=== PATIENT | male | born 1970 | race Caucasian/White ===

== ENCOUNTER 2017-05-01 06:51 | Inpatient (IN) | payer OTHER ==
[2017-05-01 07:30] LABS: URINE APPEARANCE CLEAR; URINE BILIRUBIN NEGATIVE (NEGATIVE); URINE BLOOD NEGATIVE (NEGATIVE); URINE COLOR YELLOW; URINE GLUCOSE (UA) NEGATIVE (NEGATIVE); URINE KETONE NEGATIVE (NEGATIVE); URINE LEUK ESTERASE NEGATIVE (NEGATIVE); URINE NITRITE NEGATIVE (NEGATIVE); URINE PROTEIN NEGATIVE (NEGATIVE); URINE UROBILINOGEN NEGATIVE mg/dL (0.2-1.0)
[2017-05-01 07:52] LABS: ALBUMIN 3.7 g/dl (3.4-5.0); ALK PHOS 64 U/L (45-117); ANION GAP 5 (8-16); BILIRUBIN,TOTAL 0.3 mg/dL (0.2-1.0); BLOOD UREA NITROGEN 15 mg/dL (7-18); CALCIUM 8.9 mg/dL (8.5-10.1); CHLORIDE 101 mmol/L (98-107); CO2 32 mmol/L (21-32); CREATININE 0.9 mg/dL (0.7-1.3); GLUCOSE,RANDOM 83 mg/dL (74-106); POTASSIUM 4.5 mmol/L (3.5-5.1); SGOT/AST 24 U/L (15-37); SGPT/ALT 30 U/L (12-78); SODIUM 138 mmol/L (136-145); TOT PROT 7.4 g/dl (6.4-8.2)
[2017-05-01 08:49] LABS: INR 0.97 (0.82-1.09)
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
[2017-05-01 08:59] VITALS: BMI 24.3
--- NOTE | 2017-05-01 10:47 | EKG ---
Test Reason : Blood Pressure : / mmHG Vent. Rate : 069 BPM Atrial Rate : 069 BPM P-R Int : 144 ms QRS Dur : 088 ms QT Int : 392 ms P-R-T Axes : 060 021 022 degrees QTc Int : 420 ms NORMAL SINUS RHYTHM MODERATE VOLTAGE CRITERIA FOR LVH, MAY BE NORMAL VARIANT EARLY REPOLARIZATION BORDERLINE ECG NO PREVIOUS ECGS AVAILABLE Confirmed by GOLDEI ROBERTS, JUAN ([id number]) on 05/01/2017 10:46:36 AM Referred By: IRASEMA TAY Confirmed By:JUAN AMEZCUA MD
[2017-05-01] MEDS ORDERED: MIDAZOLAM HCL 2 MG/2 ML SINGLE DOSE VIAL ONE (11:24)
[2017-05-01] MEDS ORDERED: HEPARIN NA (PORCINE) 5,000 UNITS/ML 1ML VIAL ONE (11:58)
[2017-05-01] MEDS ORDERED: ceFAZolin SODIUM 1 GM VIAL IVPB ONE (12:29)
[2017-05-01] MEDS ORDERED: VANCOMYCIN 1,000 MG VIAL (RESTRICTED TO ID ONLY) IVPB ONE (12:45)
[2017-05-01] MEDS ORDERED: THROMBIN (BOVINE) 5,000 UNIT VIAL TP ONE ×2 (12:57→16:47)
[2017-05-01] MEDS ORDERED: PROPOFOL 20 ML ONE ×9 (13:19→14:07)
[2017-05-01] MEDS ORDERED: DEXAMETHASONE SOD PHOSPHATE 4 MG/1 ML VIAL ONE ×2 (13:28)
[2017-05-01] MEDS ORDERED: fentaNYL CITRATE 250 MCG/5 ML VIAL ONE ×2 (13:50→15:21)
[2017-05-01] MEDS ORDERED: METOPROLOL TARTRATE 5 MG/5 ML VIAL ONE (16:33)
[2017-05-01] MEDS ORDERED: hydrALAZINE HCL 20 MG/ML VIAL ONE (16:45)
[2017-05-01] MEDS ORDERED: SODIUM CHLORIDE 0.9% P/F 10 ML VIAL IJ ONE (16:54)
[2017-05-01] MEDS ORDERED: ceFAZolin SODIUM 1 GM VIAL ONE (16:54)
[2017-05-01] MEDS ORDERED: TRANEXAMIC ACID 1000 MG/10 ML VIAL ONE (17:06)
[2017-05-01] MEDS ORDERED: PROMETHAZINE HCL 25 MG/1 ML VIAL IVPB PRN (17:32)
[2017-05-01] MEDS ORDERED: ONDANSETRON 4 MG/2 ML VIAL IVPUSH PRN ×2 (17:32→17:42)
[2017-05-01] MEDS ORDERED: DEXAMETHASONE SOD PHOSPHATE 4 MG/1 ML VIAL IVPUSH PRN (17:32)
[2017-05-01] MEDS ORDERED: HYDROmorphone HCL CARPU-JECT 2 MG/1 ML DISP.SYRIN ONE ×3 (17:33→18:58)
[2017-05-01] MEDS: HYDROmorphone HCL CARPU-JECT 2 MG/1 ML DISP.SYRIN IVPUSH PRN ×7 (17:33→19:09)
--- NOTE | 2017-05-01 17:36 | OP ---
Operative Note - Note: Operative Date: 05/01/17 Pre-Operative Diagnosis: Cervical spinal stenosis C5/6, C6/7 Operation: C5/6, C6/7 ACDF. C4 & C7 partial corpectomies Findings: C5/6 durotomy s/p DuraSeal glue application Post-Operative Diagnosis: Same as Pre-op Surgeon: Vijay Crisostomo Mold Yard Supervisor: Vitaly Crisostomo Anesthesiologist/TRADE SHOW MANAGER: Candido Chaudhry Anesthesia: General Specimens Removed: C5/6, C6/7 disc Estimated Blood Loss (mls): 100 Drains & Tubes with Location: 1 x deep 10F LILIAN Fluid Volume Replaced (mls): 2,000 Operative Report Dictated: Yes
--- NOTE | 2017-05-01 17:41 | PN ---
Progress Note (short form) - Note Progress Note: 46M s/p C5/6, C6/7 ACDF, C4 & C7 partial corpectomies POD #0. Intra-op dural tear C5/6 sealed w/DuraSeal glue -Admit to ICU post-op for strict airway monitoring. -Admit to medicine hospitalist service. -HOB elevated to 60 degrees minimum. -Pain control. -Mechanical DVT PPx. only (SCD's, CARMITA's); No chemical DVT PPx. -Incentive spirometry/aggressive pulmonary toilet. -PT/OT/Rehab, OOB. -WBAT B/L UE & LE. -Monitor drain output. -d/c lewis catheter in AM 05/02/2017. -Clear liquid diet; advance as tolerated. -Will follow.
[2017-05-01] MEDS ORDERED: diazePAM CARPU-JECT 10 MG/2 ML DISP.SYRIN IVPUSH PRN (17:42)
[2017-05-01] MEDS ORDERED: LACTATED RINGERS SOLUTION 1,000 ML IV SCH ×2 (17:45)
[2017-05-01] MEDS ORDERED: HYDROmorphone *PCA* 10MG/50ML DISP.SYRIN PCA SCH (17:45)
[2017-05-01] MEDS ORDERED: LORazepam 2 MG/ML SDV VIAL IVPUSH ONE (19:20)
[2017-05-01] MEDS ORDERED: CHLORHEXIDINE GLUCONATE 4% CLEANSER FOR DECOLONIZATION TP SCH (22:00)
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
[2017-05-01] MEDS: KETOROLAC TROMETHAMINE 30 MG/1 ML VIAL IVPUSH PRN (22:05)
[2017-05-01] MEDS: MUPIROCIN 2% TOPICAL OINTMENT FOR DECOLONIZATION NS SCH (22:09)
[2017-05-01] MEDS ORDERED: HYDROmorphone HCL CARPU-JECT 2 MG/1 ML DISP.SYRIN IVPUSH ONE (23:03)
[2017-05-01] MEDS ORDERED: LORazepam 2 MG/ML SDV VIAL IVPUSH PRN (23:03)
[2017-05-01] MEDS ORDERED: LORazepam 2 MG/ML SDV VIAL ONE (23:05)
[2017-05-02] MEDS: ACETAMINOPHEN 1000 MG/100 ML VIAL (NON FORMULARY) IVPB SCH ×3 (02:38→10:23)
--- NOTE | 2017-05-02 05:56 | PN ---
Physical Exam: SUBJECTIVE: Patient seen and examined at bedside. complain of shooting pain in his left arm associated with numbness, weakness. also reprots nubness in his left leg. the pain is 10/10 per patient . asking for more pain medicine. denies any fever, chills, N/V/D/C. OBJECTIVE: Vital Signs Period Temp Pulse Resp BP Sys/Kumari Pulse Ox Last 24 Hr 97.8 F-100.4 F 67-111 11-20 117-153/62-78 98-100 GENERAL: The patient is awake, alert, and fully oriented, in no acute distress. HEAD: Normal with no signs of trauma. EYES: sclera anicteric, conjunctiva clear. ENT: moist mucous membranes. NECK: supple. anterior surgical site is clean and covered with gauze. LUNGS: Breath sounds equal, clear to auscultation bilaterally, no wheezes, no crackles, no accessory muscle use. HEART: Regular rate and rhythm, S1, S2 without murmur, rub or gallop. ABDOMEN: Soft, nontender, nondistended, normoactive bowel sounds, no guarding, no rebound, EXTREMITIES: 2+ pulses, warm, well-perfused, no edema. left arm 4/5 strength, right arm 5/5 , NEUROLOGICAL: Cranial nerves II through XII grossly intact. Normal speech, gait not observed. PSYCH: Normal mood, normal affect. SKIN: Warm, dry, no rashes or lesions noted Drains: serosanguinous fluid Laboratory Results - last 24 hr 05/01/17 05/01/17 05/01/17 07:15 07:15 07:15 PT with INR 11.00 INR 0.97 Sodium 138 Potassium 4.5 Chloride 101 Carbon Dioxide 32 Anion Gap 5 L BUN 15 Creatinine 0.9 Creat Clearance w eGFR > 60 Random Glucose 83 Calcium 8.9 Total Bilirubin 0.3 AST 24 ALT 30 Alkaline Phosphatase 64 Total Protein 7.4 Albumin 3.7 Urine Color Urine Appearance Urine pH Ur Specific [place] Urine Protein Urine Glucose (UA) Urine Ketones Urine Blood Urine Nitrite Urine Bilirubin Urine Urobilinogen Ur Leukocyte Esterase Blood Type O POSITIVE Antibody Screen Negative 05/01/17 05/01/17 07:15 09:10 PT with INR INR Sodium Potassium Chloride Carbon Dioxide Anion Gap BUN Creatinine Creat Clearance w eGFR Random Glucose Calcium Total Bilirubin AST ALT Alkaline Phosphatase Total Protein Albumin Urine Color Yellow Urine Appearance Clear Urine pH 5.0 Ur Specific [place] 1.024 Urine Protein Negative Urine Glucose (UA) Negative Urine Ketones Negative Urine Blood Negative Urine Nitrite Negative Urine Bilirubin Negative Urine Urobilinogen Negative Ur Leukocyte Esterase Negative Blood Type O POSITIVE Antibody Screen Active Medications Generic Name Dose Route Start Last Admin Trade Name Freq PRN Reason Stop Dose Admin Acetaminophen 1,000 mg 05/01/17 17:45 05/02/17 02:38 Ofirmev Injection - IVPB 05/02/17 09:46 1,000 mg Q8H [facility] Administration Chlorhexidine Gluconate 1 applic 05/01/17 22:00 05/01/17 22:09 Hibiclens For Decolonization - TP 1 applic HS [facility] Administration Dexamethasone Sodium Phosphate 4 mg 05/01/17 17:32 Decadron Injection - IVPUSH ONCE PRN NAUSEA AND/OR VOMITING Diphenhydramine HCl 12.5 mg 05/01/17 17:32 Benadryl Injection - IVPUSH ONCE PRN FOR ITCHING Hydromorphone HCl 0 mg 05/01/17 17:45 05/01/17 18:15 Dilaudid Child Support Specialist - DIRECTOR LONG TERM CARE 05/08/17 17:33 10 mg DIRECTOR LONG TERM CARE [facility] Administration Protocol Lactated Ringer's 1,000 mls @ 125 mls/hr 05/01/17 17:45 05/01/17 22:07 Lactated Ringers Solution IV 125 mls/hr ASDIR [facility] Administration Ketorolac Tromethamine 15 mg 05/01/17 17:42 05/01/17 22:05 Toradol Injection - IVPUSH 05/06/17 17:41 15 mg Q6H PRN Administration PAIN LEVEL 6-10 Lorazepam 2 mg 05/01/17 23:03 Ativan Injection - IVPUSH 05/02/17 23:02 TID PRN ANXIETY Mupirocin 1 applic 05/01/17 22:00 05/01/17 22:09 Bactroban Ointment (For Decolonization) - NS 05/06/17 21:59 1 applic BID [facility] Administration Ondansetron HCl 4 mg 05/01/17 17:32 Zofran Injection IVPUSH Q4H PRN NAUSEA AND/OR VOMITING CBC, BMP 05/02/17 05:05 05/02/17 05:05 ASSESSMENT/PLAN: 46 y/o M w/PMH of pre-diabetes presents to same day surgery/ambulatory services for C5-C6-C7 anterior cervical discectomy w/Dr. Crisostomo today. Admitted to ICU s/ p surgery for monitoring. -B/L UE paresthesias secondary to cervical herniations -post op day 1 , C5-C7 anterior discectomy fusion -Neuro checks s/p surgery --pain management: DC Dilaudid DIRECTOR LONG TERM CARE protocol,continue , Ketorlac 15 mg IVpish Q6hr, -antiemetics zofran 4 mg IVpush Q4hr -monitor drain output -venodynes -diet as tolerated -incentive spirometry - neuro checks - can monitor on floor if ok with surgery -Lorazepam 1 mg TID per ICU team - CBC, CMP , PTT, MG , P in AM -DVT ppx -SCDs both legs s/p surgery -FEN -RL @ 125 cc/hr -Monitor electrolytes -fluids while npo, advance diet as tolerated. -Dispo: -Admit to ICU s/p surgery. Visit type - Emergency Visit Emergency Visit: No - New Patient This patient is new to me today: Yes Date on this admission: 05/03/17 - Critical Care Critical Care patient: Yes Total Critical Care Time (in minutes): 35 Critical Care Statement: The care of this patient involved high complexity decision making to prevent further life threatening deterioration of the patient 's condition and/or to evaluate & treat vital organ system(s) failure or risk of failure.
[2017-05-02 06:43] LABS: BASO % 0.1 % (0-2.0); HEMATOCRIT 38.6 % (35.4-49); LYMPH % 9.4 % (8-40); MCH 28.8 pg (25.7-33.7); MCHC 33.7 g/dl (32.0-35.9); MEAN CELL VOLUME 85.5 fl (80-96); MEAN PLT VOLUME 8.9 fl (7.5-11.1); MONO % 5.5 % (3.8-10.2); PLATELET COUNT 268 K/MM3 (134-434); RBC 4.51 M/mm3 (4.00-5.60); RDW 13.6 % (11.9-15.9); WHITE BLOOD COUNT 11.5 K/mm3 (4.0-10.0)
[2017-05-02] MEDS ORDERED: HYDROmorphone *PCA* 10MG/50ML DISP.SYRIN PCA ONE (07:03)
[2017-05-02 07:05] LABS: CHLORIDE 101 mmol/L (98-107); POTASSIUM 4.4 mmol/L (3.5-5.1); SODIUM 138 mmol/L (136-145)
[2017-05-02 07:12] LABS: ALBUMIN 3.4 g/dl (3.4-5.0); ALK PHOS 60 U/L (45-117); ANION GAP 8 (8-16); BILIRUBIN,TOTAL 0.7 mg/dL (0.2-1.0); BLOOD UREA NITROGEN 13 mg/dL (7-18); CALCIUM 8.9 mg/dL (8.5-10.1); CO2 29 mmol/L (21-32); CREATININE 0.8 mg/dL (0.7-1.3); GLUCOSE,RANDOM 111 mg/dL (74-106); SGOT/AST 36 U/L (15-37); SGPT/ALT 33 U/L (12-78)
--- NOTE | 2017-05-02 07:50 | OP ---
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 OPERATION PERFORMED: 1. Anterior cervical diskectomy and fusion C5-C6. 2. Anterior cervical diskectomy and fusion C6-C7. 3. Both levels with cages. 4. Anterior arthrodesis and anterior plating, C5 to C7. ANESTHESIA: General. ANTIBIOTICS GIVEN: Kefzol 2 g, vancomycin 1 g, Decadron 10 mg given preoperatively. BLOOD LOSS: Approximately 50 mL. OPERATION IN DETAIL: The patient was correctly identified, brought to the operating room, placed supine on the operating room table, transverse bolster behind the scapula. The neck was extended. The skin was cleansed with Betadine scrub solution, wiped with alcohol, and DuraPrep was applied. Time-out was called. Imaging was available for intraoperative evaluation. An oblique incision was made over the cricothyroid interval. The dissection was taken through the platysma. The platysma was transected. The plane of the viscera and vessels was identified with digital palpation lateral to the strap muscles. No complications in getting the instrumentation into the neck region. The longus coli was lifted off the bed of C5, C6, and C7, that is laterally. The teeth retractors were placed in the actual muscle belly. The 18-gauge bent needle tip was placed in the C5-C6 disk, which was verified by lateral fluoroscopic x-ray that the correct position was being utilized. Once excellent exposure was achieved, the 2 bulging disks were readily noted. These were large osteophyte disk complexes. The unipolar Bovie was used to release the actual annulus off the bone bed. With a curette, all the disk material was scooped out of each level. Using a Midas Misha 40-mm rough quintin bur, the bone was appropriately trimmed, thus creating a partial corpectomy as well in order to achieve this rectangular position to create a complete decompression at C6-C7 as well as at C5-C6. The posterior longitudinal ligament was taken out completely. The dura was exposed completely. At C5-C6 an unusual anatomical variant was noted. The nerve root was convoluted, the dural was infolded, and appeared similar to PLL scar. Upon attempted elevation of this flap, an incidental durotomy occurred with CSF leakage. DuraSeal fibrin glue was placed onto this area to ensure that there was complete sealant. The cage at C5-C6 measured 10-mm PEEK cage. This was filled with Osteofil. The C6- C7 disk was an 8-mm PEEK cage. A size 32-mm Simplicity plate was placed on the anterior aspect surface of the bone. Screws were placed into the C5, C6 and C7 vertebral bodies. Verification with lateral fluoroscopic x-rays showed excellent position of all screws. Plating was straight and uncomplicated. All cages were well seated. The wounds were thoroughly washed off. Hemostasis was achieved as best we could , but because of the oozy soft tissue bed, we elected to put in a LILIAN drain. The tissues were closed as follows: Platysma 2-0 Vicryl, subcutaneous 2-0 Vicryl, skin 3-0 Monocryl with Steri-Strips. Drainage as noted above. No complications. MD ERIC Garcia/[id number] MTDD
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
[2017-05-02 08:41] LABS: PHOSPHOROUS 3.7 mg/dL (2.5-4.9)
[2017-05-02] MEDS: MUPIROCIN 2% TOPICAL OINTMENT FOR DECOLONIZATION NS SCH (10:24)
[2017-05-02] MEDS ORDERED: PT OWN MED DRAWER 7, Y5N ONE (10:29)
[2017-05-02] MEDS: KETOROLAC TROMETHAMINE 30 MG/1 ML VIAL IVPUSH PRN (10:30)
--- NOTE | 2017-05-02 12:38 | PN ---
Teaching Attending Note Name of Resident: Pretty Guillen ATTENDING PHYSICIAN STATEMENT I saw and evaluated the patient. I reviewed the resident's note and discussed the case with the resident. I agree with the resident's findings and plan as documented. SUBJECTIVE: Pt seen and examined in the ICU. Still with significant pain. Reports weakness and numbness of bilateral arms and left leg. No fevers or chills. No chest pain or shortness of breath. OBJECTIVE: Last Vital Signs Temp Pulse Resp BP Pulse Ox 98.2 F 89 18 149/79 100 05/02/17 10:00 05/02/17 10:15 05/02/17 10:15 05/02/17 10:15 05/02/17 09:22 Intake & Output 04/29/17 04/30/17 05/01/17 05/02/17 23:59 23:59 23:59 23:59 Intake Total 2450 1816 Output Total 1300 550 Balance 1150 1266 Weight 77.111 kg Gen: NAD at rest Heart: RRR Lung: decreased breath sounds at the bases Abd: soft, nontender Ext: no edema Drains: serosanguinous fluid CBC, BMP 05/02/17 05:05 05/02/17 05:05 Active Medications Chlorhexidine Gluconate (Hibiclens For Decolonization -) 1 applic TP HS GA Last Admin: 05/01/17 22:09 Dose: 1 applic Dexamethasone Sodium Phosphate (Decadron Injection -) 4 mg IVPUSH ONCE PRN PRN Reason: NAUSEA AND/OR VOMITING Diphenhydramine HCl (Benadryl Injection -) 12.5 mg IVPUSH ONCE PRN PRN Reason: FOR ITCHING Hydromorphone HCl (Dilaudid Coffee Maker -) 0 mg MOLD CUTTING MACHINE OPERATOR MOLD CUTTING MACHINE OPERATOR GA PRN Reason: Protocol Stop: 05/08/17 17:33 Last Admin: 05/01/17 18:15 Dose: 10 mg Lactated Ringer's (Lactated Ringers Solution) 1,000 mls @ 125 mls/hr IV ASDIR GA Last Admin: 05/01/17 22:07 Dose: 125 mls/hr Ketorolac Tromethamine (Toradol Injection -) 15 mg IVPUSH Q6H PRN PRN Reason: PAIN LEVEL 6-10 Stop: 05/06/17 17:41 Last Admin: 01/18/18 10:30 Dose: 15 mg Lorazepam (Ativan Injection -) 2 mg IVPUSH TID PRN PRN Reason: ANXIETY Stop: 05/02/17 23:02 Last Admin: 05/02/17 07:17 Dose: 2 mg Mupirocin (Bactroban Ointment (For Decolonization) -) 1 applic NS BID GA Stop: 05/06/17 21:59 Last Admin: 05/02/17 10:24 Dose: 1 applic Ondansetron HCl (Zofran Injection) 4 mg IVPUSH Q4H PRN PRN Reason: NAUSEA AND/OR VOMITING ASSESSMENT AND PLAN: Cervical Stenosis C5-C7 s/p C5-C7 Anterior Cervical Discectomy/Fusion - pain control - incentive spirometry - neuro checks - PO as tolerated - monitor drain output - mechanical DVT prophylaxis - can monitor on floor if ok with surgery
[2017-05-02] MEDS ORDERED: DEXAMETHASONE SOD PHOSPHATE 10 MG/1 ML VIAL IVPUSH ONE (13:16)
[2017-05-02] MEDS ORDERED: oxyCODONE HCL 5 MG TABLET PO SCH ×3 (14:00→22:00)
--- NOTE | 2017-05-02 15:16 | PN ---
Teaching Attending Note Name of Resident: Balbir Chandler ATTENDING PHYSICIAN STATEMENT I saw and evaluated the patient. I reviewed the resident's note and discussed the case with the resident. I agree with the resident's findings and plan as documented. SUBJECTIVE: Still with significant pain. Reports weakness and numbness of bilateral arms and left leg. No fevers or chills. No chest pain or shortness of breath. OBJECTIVE: Vital Signs Temperature 98.2 F 05/02/17 10:00 Pulse Rate 83 05/02/17 12:00 Respiratory Rate 18 05/02/17 12:00 Blood Pressure 128/76 05/02/17 12:00 O2 Sat by Pulse Oximetry (%) 100 05/02/17 09:22 CBCD WBC 11.5 K/mm3 (4.0-10.0) H 05/02/17 05:05 RBC 4.51 M/mm3 (4.00-5.60) 05/02/17 05:05 Hgb 13.0 GM/dL (11.7-16.9) 05/02/17 05:05 Hct 38.6 % (35.4-49) 05/02/17 05:05 MCV 85.5 fl (80-96) 05/02/17 05:05 MCHC 33.7 g/dl (32.0-35.9) 05/02/17 05:05 RDW 13.6 % (11.9-15.9) 05/02/17 05:05 Plt Count 268 K/MM3 (134-434) 05/02/17 05:05 MPV 8.9 fl (7.5-11.1) 05/02/17 05:05 CMP Sodium 138 mmol/L (136-145) 05/02/17 05:05 Potassium 4.4 mmol/L (3.5-5.1) 05/02/17 05:05 Chloride 101 mmol/L (98-107) 05/02/17 05:05 Carbon Dioxide 29 mmol/L (21-32) 05/02/17 05:05 Anion Gap 8 (8-16) 05/02/17 05:05 BUN 13 mg/dL (7-18) 05/02/17 05:05 Creatinine 0.8 mg/dL (0.7-1.3) 05/02/17 05:05 Creat Clearance w eGFR > 60 (>60) 05/02/17 05:05 Random Glucose 111 mg/dL (74-106) H D 05/02/17 05:05 Calcium 8.9 mg/dL (8.5-10.1) 05/02/17 05:05 Total Bilirubin 0.7 mg/dL (0.2-1.0) D 05/02/17 05:05 AST 36 U/L (15-37) D 05/02/17 05:05 ALT 33 U/L (12-78) 05/02/17 05:05 Alkaline Phosphatase 60 U/L (45-117) 05/02/17 05:05 Total Protein 7.0 g/dl (6.4-8.2) 05/02/17 05:05 Albumin 3.4 g/dl (3.4-5.0) 05/02/17 05:05 Current Medications Generic Name Dose Route Start Last Admin Trade Name Freq PRN Reason Stop Dose Admin Chlorhexidine Gluconate 1 applic 05/01/17 22:00 05/01/17 22:09 Hibiclens For Decolonization - TP 1 applic HS GA Administration Diphenhydramine HCl 12.5 mg 05/01/17 17:32 Benadryl Injection - IVPUSH ONCE PRN FOR ITCHING Hydromorphone HCl 0 mg 05/01/17 17:45 05/01/17 18:15 Dilaudid Gas Golf Cart Repairer - PIPELINE SUPERINTENDENT DIVISION 05/08/17 17:33 10 mg PIPELINE SUPERINTENDENT DIVISION GA Administration Protocol Ketorolac Tromethamine 15 mg 05/01/17 17:42 05/02/17 10:30 Toradol Injection - IVPUSH 05/06/17 17:41 15 mg Q6H PRN Administration PAIN LEVEL 6-10 Lorazepam 2 mg 05/01/17 23:03 05/02/17 07:17 Ativan Injection - IVPUSH 05/02/17 23:02 2 mg TID PRN Administration ANXIETY Mupirocin 1 applic 05/01/17 22:00 05/02/17 10:24 Bactroban Ointment (For Decolonization) - NS 05/06/17 21:59 1 applic BID GA Administration Ondansetron HCl 4 mg 05/01/17 17:32 Zofran Injection IVPUSH Q4H PRN NAUSEA AND/OR VOMITING Oxycodone HCl 30 mg 01/18/18 14:00 05/02/17 13:29 Roxicodone - PO 30 mg TID [facility] Administration Home Medications Medication Instructions Recorded Oxycodone HCl 30 mg PO Q8H 05/01/17 PE: comfortable with no acute distress Chest: decreased BS BL since unable to take deep breaths due to cervical sx Neck: positive for drainage, serosanginous fluid abdomen: soft, NT Heart: S1S1 positive ASSESSMENT AND PLAN: #POD #1 C5-C7 Anterior Cervical Discectomy/Fusion, on PIPELINE SUPERINTENDENT DIVISION pump as per surgeon, further pain management. Incentive spirometry , neuro checks. Only mechanical DVT px for at least 72hrs. Further management per surgery . SCDs
[2017-05-02] MEDS ORDERED: NIFEdipine E.R. 30 MG TABLET (FP) PO ONE (15:17)
[2017-05-02] MEDS ORDERED: HYDROmorphone *PCA* 10MG/50ML DISP.SYRIN PCA SCH (15:20)
[2017-05-02] MEDS ORDERED: KETOROLAC TROMETHAMINE 30 MG/1 ML VIAL IVPUSH PRN ×2 (15:20→19:36)
[2017-05-02] MEDS ORDERED: LORazepam 2 MG/ML SDV VIAL IVPUSH PRN ×2 (15:20→16:05)
[2017-05-02] MEDS ORDERED: ONDANSETRON 4 MG/2 ML VIAL IVPUSH PRN ×2 (15:20→19:36)
[2017-05-02] MEDS ORDERED: oxyCODONE HCL 5 MG TABLET PO PRN (15:58)
--- NOTE | 2017-05-02 16:14 | PN ---
Progress Note (short form) - Note Progress Note: Anesthesia post op, RETAIL CENTER RECEPTIONIST follow up. POD#1. S/P anterior cervical fusion, under GA. On RETAIL CENTER RECEPTIONIST. Pat seen and examined. VSS. C/O Tingling and pain in hands as preop. Started on Po analgetics. D/C RETAIL CENTER RECEPTIONIST.
[2017-05-02] MEDS: oxyCODONE HCL 5 MG TABLET PO SCH (21:55)
[2017-05-02] MEDS ORDERED: MUPIROCIN 2% TOPICAL OINTMENT FOR DECOLONIZATION NS SCH (22:00)
[2017-05-02] MEDS ORDERED: CHLORHEXIDINE GLUCONATE 4% CLEANSER FOR DECOLONIZATION TP SCH (22:00)
--- NOTE | 2017-05-03 04:44 | PN ---
Physical Exam: SUBJECTIVE: Patient seen and examined at bedside. still have numbness on left arm and left leg. complain of sever frontal headache over night 10/10, improved with pain killer. OBJECTIVE: Vital Signs Period Temp Pulse Resp BP Sys/Kumari Pulse Ox Last 24 Hr 97.8 F-99.2 F 63-100 11-20 114-149/54-79 100-100 GENERAL: The patient is awake, alert, and fully oriented, in no acute distress. HEAD: Normal with no signs of trauma. EYES: sclera anicteric, conjunctiva clear. ENT: moist mucous membranes. NECK: supple. anterior surgical site is clean and covered with gauze. LUNGS: Breath sounds equal, clear to auscultation bilaterally, no wheezes, no crackles, no accessory muscle use. HEART: Regular rate and rhythm, S1, S2 without murmur, rub or gallop. ABDOMEN: Soft, nontender, nondistended, normoactive bowel sounds, no guarding, no rebound, EXTREMITIES: 2+ pulses, warm, well-perfused, no edema. left arm 4/5 strength, right arm 5/5 , NEUROLOGICAL: Cranial nerves II through XII grossly intact. Normal speech, gait not observed. PSYCH: Normal mood, normal affect. SKIN: Warm, dry, no rashes or lesions noted Drains: serosanguinous fluid Laboratory Results - last 24 hr 05/02/17 05/02/17 05/02/17 05:05 05:05 05:05 WBC 11.5 H RBC 4.51 Hgb 13.0 Hct 38.6 MCV 85.5 MCH 28.8 MCHC 33.7 RDW 13.6 Plt Count 268 MPV 8.9 Neutrophils % 85.0 H Lymphocytes % 9.4 Monocytes % 5.5 Eosinophils % 0.0 Basophils % 0.1 Sodium 138 Potassium 4.4 Chloride 101 Carbon Dioxide 29 Anion Gap 8 BUN 13 Creatinine 0.8 Creat Clearance w eGFR > 60 Random Glucose 111 H D Calcium 8.9 Phosphorus 3.7 Cancelled Magnesium 2.0 Cancelled Total Bilirubin 0.7 D AST 36 D ALT 33 Alkaline Phosphatase 60 Total Protein 7.0 Albumin 3.4 Active Medications Generic Name Dose Route Start Last Admin Trade Name Freq PRN Reason Stop Dose Admin Ketorolac Tromethamine 15 mg 05/02/17 19:36 Toradol Injection - IVPUSH 05/06/17 17:41 Q6H PRN PAIN LEVEL 6-10 Lorazepam 1 mg 05/02/17 16:05 Ativan Injection - IVPUSH Q8H PRN ANXIETY Ondansetron HCl 4 mg 05/02/17 19:36 Zofran Injection IVPUSH Q4H PRN NAUSEA AND/OR VOMITING Oxycodone HCl 30 mg 05/02/17 22:00 05/02/17 21:55 Roxicodone - PO 30 mg TID GA Administration CBC, BMP 05/03/17 07:20 05/03/17 07:20 ASSESSMENT/PLAN: 46 y/o M w/PMH of pre-diabetes presents to same day surgery/ambulatory services for C5-C6-C7 anterior cervical discectomy w/Dr. Crisostomo today. Admitted to ICU s/ p surgery for monitoring. -B/L UE paresthesias secondary to cervical herniations -post op day 1 , C5-C7 anterior discectomy fusion -Neuro checks s/p surgery --pain management: DC Dilaudid GRINDER SET UP OPERATOR CENTERLESS protocol,continue , Ketorlac 15 mg IVpish Q6hr,Oxycodone 30 mg TID. -antiemetics zofran 4 mg IVpush Q4hr -monitor drain output -venodynes -diet as tolerated -incentive spirometry - neuro checks - can monitor on floor if ok with surgery -Lorazepam 1 mg TID per ICU team - CBC, CMP , PTT, MG , P in AM -DVT ppx -SCDs both legs s/p surgery -FEN -on no fluids, encourage oral intake as tolerated -Monitor electrolytes - advance diet as tolerated. -Dispo: -Admit to ICU s/p surgery.transferred to med-surg. Visit type - Emergency Visit Emergency Visit: No - New Patient This patient is new to me today: No - Critical Care Critical Care patient: No
[2017-05-03] MEDS: oxyCODONE HCL 5 MG TABLET PO SCH ×3 (06:27→22:06)
[2017-05-03 08:18] LABS: BASO % 0.1 % (0-2.0); HEMATOCRIT 39.6 % (35.4-49); LYMPH % 16.8 % (8-40); MCH 27.9 pg (25.7-33.7); MCHC 32.8 g/dl (32.0-35.9); MEAN PLT VOLUME 9.1 fl (7.5-11.1); MONO % 6.5 % (3.8-10.2); NEUT % 76.6 % (42.8-82.8); PLATELET COUNT 270 K/MM3 (134-434); RBC 4.66 M/mm3 (4.00-5.60); RDW 14.1 % (11.9-15.9); WHITE BLOOD COUNT 12.6 K/mm3 (4.0-10.0)
[2017-05-03 08:37] LABS: ALBUMIN 3.8 g/dl (3.4-5.0); ANION GAP 11 (8-16); BLOOD UREA NITROGEN 13 mg/dL (7-18); CALCIUM 8.7 mg/dL (8.5-10.1); CHLORIDE 102 mmol/L (98-107); CO2 25 mmol/L (21-32); GLUCOSE,RANDOM 105 mg/dL (74-106); MAGNESIUM 2.1 mg/dL (1.8-2.4); POTASSIUM 3.9 mmol/L (3.5-5.1); SODIUM 138 mmol/L (136-145)
[2017-05-03 08:42] LABS: ALK PHOS 58 U/L (45-117); BILIRUBIN,TOTAL 0.8 mg/dL (0.2-1.0); CREATININE 0.7 mg/dL (0.7-1.3); SGOT/AST 36 U/L (15-37); SGPT/ALT 35 U/L (12-78); TOT PROT 7.4 g/dl (6.4-8.2)
--- NOTE | 2017-05-03 10:35 | PN ---
Teaching Attending Note Name of Resident: Balbir Chandler ATTENDING PHYSICIAN STATEMENT I saw and evaluated the patient. I reviewed the resident's note and discussed the case with the resident. I agree with the resident's findings and plan as documented. SUBJECTIVE: Patient continues to be in pain. OBJECTIVE: Vital Signs Temperature 97.2 F L 05/03/17 06:25 Pulse Rate 83 05/03/17 06:25 Respiratory Rate 20 05/03/17 01:16 Blood Pressure 141/83 05/03/17 06:25 O2 Sat by Pulse Oximetry (%) 100 05/02/17 09:22 CBCD WBC 12.6 K/mm3 (4.0-10.0) H 05/03/17 07:20 RBC 4.66 M/mm3 (4.00-5.60) 05/03/17 07:20 Hgb 13.0 GM/dL (11.7-16.9) 05/03/17 07:20 Hct 39.6 % (35.4-49) 05/03/17 07:20 MCV 85.0 fl (80-96) 05/03/17 07:20 MCHC 32.8 g/dl (32.0-35.9) 05/03/17 07:20 RDW 14.1 % (11.9-15.9) 05/03/17 07:20 Plt Count 270 K/MM3 (134-434) 05/03/17 07:20 MPV 9.1 fl (7.5-11.1) 05/03/17 07:20 CMP Sodium 138 mmol/L (136-145) 05/03/17 07:20 Potassium 3.9 mmol/L (3.5-5.1) 05/03/17 07:20 Chloride 102 mmol/L (98-107) 05/03/17 07:20 Carbon Dioxide 25 mmol/L (21-32) 05/03/17 07:20 Anion Gap 11 (8-16) 05/03/17 07:20 BUN 13 mg/dL (7-18) 05/03/17 07:20 Creatinine 0.7 mg/dL (0.7-1.3) 05/03/17 07:20 Creat Clearance w eGFR > 60 (>60) 05/03/17 07:20 Random Glucose 105 mg/dL (74-106) 05/03/17 07:20 Calcium 8.7 mg/dL (8.5-10.1) 05/03/17 07:20 Total Bilirubin 0.8 mg/dL (0.2-1.0) 05/03/17 07:20 AST 36 U/L (15-37) 05/03/17 07:20 ALT 35 U/L (12-78) 05/03/17 07:20 Alkaline Phosphatase 58 U/L (45-117) 05/03/17 07:20 Total Protein 7.4 g/dl (6.4-8.2) 05/03/17 07:20 Albumin 3.8 g/dl (3.4-5.0) 05/03/17 07:20 Current Medications Generic Name Dose Route Start Last Admin Trade Name Freq PRN Reason Stop Dose Admin Ketorolac Tromethamine 15 mg 05/02/17 19:36 Toradol Injection - IVPUSH 05/06/17 17:41 Q6H PRN PAIN LEVEL 6-10 Lorazepam 1 mg 05/02/17 16:05 Ativan Injection - IVPUSH Q8H PRN ANXIETY Ondansetron HCl 4 mg 05/02/17 19:36 Zofran Injection IVPUSH Q4H PRN NAUSEA AND/OR VOMITING Oxycodone HCl 30 mg 05/02/17 22:00 05/03/17 06:27 Roxicodone - PO 30 mg TID GA Administration Home Medications Medication Instructions Recorded Oxycodone HCl 30 mg PO Q8H 05/01/17 PE: comfortable with no acute distress Chest: decreased BS BL since unable to take deep breaths due to cervical sx Neck: positive for drainage, serosanginous fluid abdomen: soft, NT Heart: S1S1 positive ASSESSMENT AND PLAN: #POD #2 C5-C7 Anterior Cervical Discectomy/Fusion, off CERTIFIED CYTOTECHNOLOGIST pump now, on PO pain meds and further pain management per Surgeon . Incentive spirometry continue neuro checks continue. mechanical DVT px Only for at least 72hrs. DVT Px: SCDs
--- NOTE | 2017-05-03 12:10 | PATH ---
Surgical Pathology Report Patient Name: HECTOR FRANZ Med. Rec. #: [id number] /Age/Gender: 1970 (Age: 46) / M Account: [id number] Location: [facility] MED/SURG Taken: 05/01/2017 Received: 05/02/2017 Reported: 05/03/2017 Physicians: Vitaly Crisostomo M.D. Specimen(s) Received A: DISC TISSUE OF C5 B: DISC TISSUE OF C6 Clinical History Cervical disc disorder Final Diagnosis A. C5-C6 DISC TISSUE, DISCECTOMY: BENIGN INTERVERTEBRAL DISC TISSUE. B. C6-C7 DISC TISSUE, DISCECTOMY: BENIGN INTERVERTEBRAL DISC TISSUE. Electronically Signed Rosario Calixto M.D. Gross Description A. Received in formalin labeled "C5-C6 disc tissue," is a 1.3 x 1.1 x 0.3 cm aggregate of morse fragments of fibrocartilaginous tissue. The specimen is entirely submitted in one cassette. B. Received in formalin labeled "C6-C7 disc tissue," is a 2.2 x 1.7 x 0.3 cm aggregate of morse fragments of fibrocartilaginous tissue. The specimen is entirely submitted in one cassette. DL/05/02/2017 saudi05/02/2017
--- NOTE | 2017-05-03 14:43 | PN ---
Progress Note (short form) - Note Progress Note: 46M s/p C5/6, C6/7 ACDF, C4 & C7 partial corpectomies POD #2. Intra-op dural tear C5/6 sealed w/DuraSeal glue Pain well controlled. (+) Severe migraine when lying flat earlier. Pt. reports B/L UE & LE radiculopathic pain & paresthesias markedly improved since surgery. Ambulating comfortably in hallway. All labs & vitals reviewed. PE: AAOx3, NAD. C-Spine: Dressing C/D/I. (+) Sutured in LILIAN drain intact & in place. (+) Serosanguinous drainage w/abundant CSF. B/L UE & LE Sensorimotor Exam: Improved from baseline. MRI C-spine: Left C5-C6 durotomy w/associated CSF leak and nerve root herniation. 46M s/p C5/6, C6/7 ACDF, C4 & C7 partial corpectomies POD #2. -NPO, IVF at midnight. -Plan to return to OR tomorrow morning (first case). -HOB elevated to 30 degrees. -Pain control. -Mechanical DVT PPx. only (SCD's, CARMITA's); No chemical DVT PPx. -PT/OT/Rehab, OOB. -WBAT B/L UE & LE. -Monitor drain output; MAINTAIN DRAIN OFF SUCTION. -Pt. seen & examined w/Salvatore Morin MD (Neurosurgery) who agrees with the above plan. -Care per primary medical team. -Will follow. Vitaly Crisostomo MD (Orthopaedic Surgery)
[2017-05-03] MEDS: SODIUM CHLORIDE 0.45% 1,000 ML IV SCH (19:25)
--- NOTE | 2017-05-03 22:48 | CONSULT ---
Consult - text type - Consultation Consultation Note: Neurosurgery consult Patient is a 46-year-old male who recently underwent two level cervical discectomy and fusion with postoperative course notable for hematoma which was evacuated and small durotomy with potentially irritated nerve root. Durotomy was at C56 level. MRI today suggests continued extravasation of CSF as does the clinical picture of low pressure headaches and CSF appearing drainage in drain. Case discussed with Dr. Vitaly Crisostomo and with patient. I agree with plans for revision with conversion to corpectomy and primary repair of durotomy with reconstruction and possible spinal drainage. Patient planned for surgery in the morning. Risks, benefits, and alternatives to the proposed surgery were discussed with the patient in detail. All questions were answered. Informed consent was obtained.
[2017-05-04] MEDS: SODIUM CHLORIDE 0.45% 1,000 ML IV SCH ×3 (00:02→17:10)
[2017-05-04] MEDS: oxyCODONE HCL 5 MG TABLET PO SCH ×2 (05:45→21:34)
[2017-05-04] MEDS ORDERED: PROMETHAZINE HCL 25 MG/1 ML VIAL IVPUSH PRN (08:42)
[2017-05-04] MEDS ORDERED: ONDANSETRON 4 MG/2 ML VIAL IVPUSH PRN ×4 (08:42→15:15)
[2017-05-04] MEDS ORDERED: DEXAMETHASONE SOD PHOSPHATE 4 MG/1 ML VIAL IVPUSH PRN (08:43)
[2017-05-04] MEDS ORDERED: PROMETHAZINE HCL 25 MG/1 ML VIAL IVPB PRN (08:43)
[2017-05-04] MEDS ORDERED: HYDROmorphone *PCA* 10MG/50ML DISP.SYRIN PCA SCH (08:45)
[2017-05-04] MEDS ORDERED: LACTATED RINGERS SOLUTION 1,000 ML IV SCH (08:45)
[2017-05-04] MEDS ORDERED: MIDAZOLAM HCL 2 MG/2 ML SINGLE DOSE VIAL ONE (08:56)
[2017-05-04] MEDS ORDERED: ROCURONIUM BROMIDE 50 MG/5 ML VIAL ONE (08:56)
[2017-05-04] MEDS ORDERED: fentaNYL CITRATE 250 MCG/5 ML VIAL ONE ×2 (08:56→11:06)
[2017-05-04] MEDS ORDERED: PROPOFOL 20 ML ONE ×11 (08:56→12:38)
[2017-05-04] MEDS ORDERED: LIDOCAINE HCL/PF 2% SDV 5ML VIAL ONE (09:00)
[2017-05-04] MEDS ORDERED: BUPIVACAINE HCL/PF 0.5% (5MG/ML) 10 ML VIAL ONE (09:04)
[2017-05-04] MEDS ORDERED: VANCOMYCIN 1,000 MG VIAL (RESTRICTED TO ID ONLY) ONE ×2 (09:04→10:37)
[2017-05-04] MEDS ORDERED: GENTAMICIN SO4 80 MG/2 ML VIAL ONE (09:04)
[2017-05-04] MEDS ORDERED: THROMBIN (BOVINE) 5,000 UNIT VIAL TP ONE (09:05)
[2017-05-04] MEDS ORDERED: ceFAZolin SODIUM 1 GM VIAL ONE (09:05)
[2017-05-04] MEDS ORDERED: SODIUM CHLORIDE 0.9% P/F 10 ML VIAL IJ ONE ×2 (09:05→10:37)
[2017-05-04] MEDS ORDERED: SUCCINYLCHOLINE CHLORIDE 200 MG/10 ML VIAL ONE (09:07)
[2017-05-04] MEDS ORDERED: ceFAZolin SODIUM 1 GM VIAL IVPB ONE (09:47)
[2017-05-04] MEDS ORDERED: VANCOMYCIN 1,000 MG VIAL (RESTRICTED TO ID ONLY) IVPB ONE (10:40)
[2017-05-04] MEDS ORDERED: DESFLURANE GAS 240 ML BOTTLE IH ONE (10:50)
[2017-05-04] MEDS ORDERED: HYDROmorphone *PCA* 10MG/50ML DISP.SYRIN PCA ONE (12:24)
[2017-05-04] MEDS ORDERED: METOPROLOL TARTRATE 5 MG/5 ML VIAL ONE (13:10)
--- NOTE | 2017-05-04 14:49 | OP ---
Operative Note - Note: Operative Date: 05/04/17 Pre-Operative Diagnosis: C5-C6 durotomy Operation: 1. GEORGE C5-C7. 2. C6 corpectomy. 3. Repair C5-C6 durotomy w/ myofascial flap. 4. ACDF C5-C7 Post-Operative Diagnosis: Same as Pre-op Surgeon: Vitaly Crisostomo Business Partner: Salvatore Brandon Anesthesiologist/PRIMARY CARE PROVIDER: Alfredo Heard Anesthesia: General Specimens Removed: C5-C7 hardware Estimated Blood Loss (mls): 25 Operative Report Dictated: Yes
--- NOTE | 2017-05-04 14:51 | PN ---
Progress Note (short form) - Note Progress Note: 46M s/p GEORGE C5-C7, C6 corpectomy, C5-C7 ACDF POD #0. -Pain control. -Mechanical DVT PPx. only (SCD's, CARMITA's); No chemical DVT PPx. -HOB elevated to 30 degrees. -PT/OT/Rehab, OOB. -WBAT B/L UE & LE. -Care per primary medical team. -Transfer to ICU post-op. -Will follow. Vitaly Crisostomo MD (Orthopaedic Surgery)
[2017-05-04] MEDS ORDERED: PROMETHAZINE HCL 25 MG/1 ML VIAL ONE (15:11)
[2017-05-04] MEDS: LORazepam 2 MG/ML SDV VIAL IVPUSH PRN (16:15)
[2017-05-04 16:50] LABS: BASO % 0.1 % (0-2.0); HEMATOCRIT 41.5 % (35.4-49); HEMOGLOBIN 13.8 GM/dL (11.7-16.9); LYMPH % 10.2 % (8-40); MCH 28.5 pg (25.7-33.7); MCHC 33.3 g/dl (32.0-35.9); MEAN CELL VOLUME 85.7 fl (80-96); MEAN PLT VOLUME 8.8 fl (7.5-11.1); MONO % 4.8 % (3.8-10.2); NEUT % 84.9 % (42.8-82.8); PLATELET COUNT 237 K/MM3 (134-434); RBC 4.84 M/mm3 (4.00-5.60); RDW 13.7 % (11.9-15.9); WHITE BLOOD COUNT 10.3 K/mm3 (4.0-10.0)
--- NOTE | 2017-05-04 16:58 | PN ---
Physical Exam: SUBJECTIVE: Patient seen and examined Patient is c/o having neck pain, s/p surgery today. OBJECTIVE: Vital Signs Temperature 99 F 05/04/17 13:23 Pulse Rate 71 05/04/17 16:25 Respiratory Rate 18 05/04/17 16:25 Blood Pressure 138/84 05/04/17 16:25 O2 Sat by Pulse Oximetry (%) 100 05/04/17 16:25 ENERAL: The patient is awake, alert, and fully oriented, in no acute distress. HEAD: Normal with no signs of trauma. EYES: PERRL, extraocular movements intact, sclera anicteric, conjunctiva clear. ENT: Ears normal, oropharynx clear without exudates, moist mucous membranes. NECK: Trachea midline, full range of motion, supple. s/p neck surgery LUNGS: Breath sounds equal, clear to auscultation bilaterally, no wheezes, no crackles, no accessory muscle use. HEART: Regular rate and rhythm, S1, S2 positive. ABDOMEN: Soft, nontender, nondistended, normoactive bowel sounds, no guarding, no rebound, no hepatosplenomegaly, no masses. EXTREMITIES: 2+ pulses, warm, well-perfused, no edema. NEUROLOGICAL: Cranial nerves II through XII grossly intact. Normal speech. PSYCH: Normal mood, normal affect. SKIN: Warm, dry, normal turgor, no rashes or lesions noted Laboratory Results - last 24 hr 05/04/17 16:30 WBC 10.3 H RBC 4.84 Hgb 13.8 Hct 41.5 MCV 85.7 MCH 28.5 MCHC 33.3 RDW 13.7 Plt Count 237 MPV 8.8 Neutrophils % 84.9 H Lymphocytes % 10.2 D Monocytes % 4.8 Eosinophils % 0.0 Basophils % 0.1 Active Medications Generic Name Dose Route Start Last Admin Trade Name Freq PRN Reason Stop Dose Admin Chlorhexidine Gluconate 1 applic 05/04/17 22:00 Hibiclens For Decolonization - TP HS GA Sodium Chloride 1,000 mls @ 100 mls/hr 05/04/17 15:15 1/2 Normal Saline IV ASDIR GA Lorazepam 1 mg 05/04/17 15:15 05/04/17 16:15 Ativan Injection - IVPUSH 1 mg Q8H PRN Administration ANXIETY Mupirocin 1 applic 05/04/17 22:00 Bactroban Ointment (For Decolonization) - NS 05/09/17 21:59 BID GA Ondansetron HCl 4 mg 05/04/17 15:15 Zofran Injection IVPUSH Q6H PRN NAUSEA AND/OR VOMITING Ondansetron HCl 4 mg 05/04/17 15:15 Zofran Injection IVPUSH Q4H PRN NAUSEA AND/OR VOMITING Oxycodone HCl 30 mg 05/04/17 22:00 Roxicodone - PO TID [facility] Home Medications Medication Instructions Recorded Oxycodone HCl 30 mg PO Q8H 05/01/17 ASSESSMENT/PLAN: Patient is a 46 y/o M w/PMH of pre-diabetes presents to same day surgery/ ambulatory services for C5-C6-C7 discectomy w/fusion w/Dr. Crisostomo today. POD #0 GEORGE C5-C7, C6 corpectomy, and C5-C7 Anterior cervical discectomy and fusion (POD 3). Pain control as per surgeon, Mechanical DVT PPx/SCDs, PT/OT/Rehab, OOB. WBAT B/ L UE & LE, post procedure patient is transferred to ICU post-op. HOB elevated to 30 degrees. continue incentive spirometry continue , neuro checks continue. DVT Px: SCDs for now ; Mechanical DVT only (SCD's, CARMITA's); No chemical DVT PPx. mechanical DVT px Only for at least 72hrs. - Visit type - Emergency Visit Emergency Visit: Yes ED Registration Date: 05/01/17 Care time: The patient presented to the Emergency Department on the above date and was hospitalized for further evaluation of their emergent condition. - New Patient This patient is new to me today: No - Critical Care Critical Care patient: No
[2017-05-04 19:47] LABS: ANION GAP 9 (8-16); BLOOD UREA NITROGEN 10 mg/dL (7-18); CALCIUM 8.7 mg/dL (8.5-10.1); CHLORIDE 100 mmol/L (98-107); CO2 28 mmol/L (21-32); CREATININE 0.9 mg/dL (0.7-1.3); GLUCOSE,RANDOM 111 mg/dL (74-106); POTASSIUM 4.1 mmol/L (3.5-5.1); SODIUM 137 mmol/L (136-145)
[2017-05-04] MEDS: HYDROmorphone *PCA* 10MG/50ML DISP.SYRIN PCA SCH (20:43)
--- NOTE | 2017-05-04 21:31 | CONSULT ---
Consult Consult Specialty:: Pulmonary critical care Reason for Consultation:: post op monitoring - History of Present Illness Chief Complaint: Chronic neck pain History of Present Illness: Pt is 46 yo male who underwent cervical discectomy and fusion on 05/01, post op course notable for hematoma which was evacuated and small durotomy. Today pt went back to OR for corpectomy and repair of durotomy with reconstruction. Transferred to ICU for post op monitoring. Active Medications Chlorhexidine Gluconate (Hibiclens For Decolonization -) 1 applic TP HS [facility] Last Admin: 05/04/17 21:34 Dose: 1 applic Hydromorphone HCl (Dilaudid Contract Management Specialist -) 10 mg [employer]CHANT [employer] MERCHANT [employer]ICE [facility] PRN Reason: Protocol Last Admin: 05/04/17 20:43 Dose: 10 mg Sodium Chloride (1/2 Normal Saline) 1,000 mls @ 100 mls/hr IV ASDIR [facility] Last Admin: 05/04/17 17:10 Dose: 0 mls Lorazepam (Ativan Injection -) 1 mg IVPUSH Q8H PRN PRN Reason: ANXIETY Last Admin: 05/04/17 16:15 Dose: 1 mg Mupirocin (Bactroban Ointment (For Decolonization) -) 1 applic NS BID [facility] Stop: 05/09/17 21:59 Last Admin: 05/04/17 21:33 Dose: 1 applic Ondansetron HCl (Zofran Injection) 4 mg IVPUSH Q6H PRN PRN Reason: NAUSEA AND/OR VOMITING Ondansetron HCl (Zofran Injection) 4 mg IVPUSH Q4H PRN PRN Reason: NAUSEA AND/OR VOMITING Oxycodone HCl (Roxicodone -) 30 mg PO TID [facility] Last Admin: 05/04/17 21:34 Dose: Not Given - Alcohol/Substance Use Hx Alcohol Use: No - Smoking History Smoking history: Never smoked Have you smoked in the past 12 months: No Home Medications - Allergies Allergies/Adverse Reactions: Allergies Allergy/AdvReac Type Severity Reaction Status Date / Time No Known Drug Allergies Allergy Verified 05/01/17 09:18 - Home Medications Home Medications: Ambulatory Orders Oxycodone HCl 30 mg PO Q8H 05/01/17 Physical Exam Vital Signs: Vital Signs Temperature 97.9 F 05/04/17 17:30 Pulse Rate 68 05/04/17 17:30 Respiratory Rate 18 05/04/17 17:30 Blood Pressure 133/85 05/04/17 17:30 O2 Sat by Pulse Oximetry (%) 100 05/04/17 17:30 Neck: Yes: Other (dressing c/d/i) Cardiovascular: Yes: Regular Rate and Rhythm, S1, S2 Respiratory: Yes: CTA Bilaterally Gastrointestinal: Yes: WNL Musculoskeletal: Yes: WNL Extremities: Yes: WNL Edema: No Wound/Incision: Yes: Dressing Dry and Intact Neurological: Yes: Alert, Oriented Labs: CBC, BMP 05/04/17 16:30 05/04/17 15:45 Assessment/Plan 46 yo male s/p cervical discectomy and fusion on 05/01 with post op course notable for hematoma (since evacuated) and small durotomy. Now s/p C6 corpectomy and repair of C5-C6 durotomy. -surgery following -pain management -antiemetics -clear liquid diet -TANNER Kennedy Critical Care time: 35 min
[2017-05-04] MEDS: MUPIROCIN 2% TOPICAL OINTMENT FOR DECOLONIZATION NS SCH (21:33)
[2017-05-04] MEDS: CHLORHEXIDINE GLUCONATE 4% CLEANSER FOR DECOLONIZATION TP SCH (21:34)
[2017-05-05] MEDS: SODIUM CHLORIDE 0.45% 1,000 ML IV SCH ×3 (01:00→19:24)
[2017-05-05] MEDS: LORazepam 2 MG/ML SDV VIAL IVPUSH PRN (04:45)
[2017-05-05] MEDS: oxyCODONE HCL 5 MG TABLET PO SCH (05:33)
--- NOTE | 2017-05-05 07:22 | PN ---
Physical Exam: SUBJECTIVE: Patient seen and examined at bedside in ICU. he complains of sever migraine headache, left arm numbness , tingling and loss of strength decreased sensation reports blurry vision on left eye. denies fever but reports some chills over night. he is hungry and asking for food. OBJECTIVE: Vital Signs Period Temp Pulse Resp BP Sys/Kumari Pulse Ox Last 24 Hr 97.9 F-99.2 F 67-86 16-18 127-154/76-93 98-100 GENERAL: The patient is awake, alert, and fully oriented, in no acute distress. HEAD: Normal with no signs of trauma. EYES: sclera anicteric, conjunctiva clear. ENT: moist mucous membranes. NECK: supple. anterior surgical site is clean and covered with gauze. LUNGS: Breath sounds equal, clear to auscultation bilaterally, no wheezes, no crackles, no accessory muscle use. HEART: Regular rate and rhythm, S1, S2 without murmur, rub or gallop. ABDOMEN: Soft, nontender, nondistended, normoactive bowel sounds, no guarding, no rebound, EXTREMITIES: 2+ pulses, warm, well-perfused, no edema. left arm 4/5 strength, right arm 5/5 , sensation decreased in left arm NEUROLOGICAL: Cranial nerves II through XII grossly intact. Normal speech, gait not observed. PSYCH: Normal mood, normal affect. SKIN: Warm, dry, no rashes or lesions noted Laboratory Results - last 24 hr 05/04/17 05/04/17 15:45 16:30 WBC 10.3 H RBC 4.84 Hgb 13.8 Hct 41.5 MCV 85.7 MCH 28.5 MCHC 33.3 RDW 13.7 Plt Count 237 MPV 8.8 Neutrophils % 84.9 H Lymphocytes % 10.2 D Monocytes % 4.8 Eosinophils % 0.0 Basophils % 0.1 Sodium 137 Potassium 4.1 Chloride 100 Carbon Dioxide 28 Anion Gap 9 BUN 10 D Creatinine 0.9 D Random Glucose 111 H Calcium 8.7 Active Medications Generic Name Dose Route Start Last Admin Trade Name Freq PRN Reason Stop Dose Admin Chlorhexidine Gluconate 1 applic 05/04/17 22:00 05/04/17 21:34 Hibiclens For Decolonization - TP 1 applic HS GA Administration Hydromorphone HCl 10 mg 05/04/17 20:30 05/04/17 20:43 Dilaudid Jailkeeper - SEWAGE PLANT OPERATOR 10 mg SEWAGE PLANT OPERATOR GA Administration Protocol Sodium Chloride 1,000 mls @ 100 mls/hr 05/04/17 15:15 05/05/17 01:00 1/2 Normal Saline IV 100 mls/hr ASDIR GA Administration Lorazepam 1 mg 05/04/17 15:15 05/05/17 04:45 Ativan Injection - IVPUSH 1 mg Q8H PRN Administration ANXIETY Mupirocin 1 applic 05/04/17 22:00 05/04/17 21:33 Bactroban Ointment (For Decolonization) - NS 05/09/17 21:59 1 applic BID GA Administration Ondansetron HCl 4 mg 05/04/17 15:15 Zofran Injection IVPUSH Q6H PRN NAUSEA AND/OR VOMITING Ondansetron HCl 4 mg 05/04/17 15:15 Zofran Injection IVPUSH Q4H PRN NAUSEA AND/OR VOMITING Oxycodone HCl 30 mg 05/04/17 22:00 05/05/17 05:33 Roxicodone - PO 30 mg TID GA Administration CBC, BMP 05/04/17 16:30 05/04/17 15:45 ASSESSMENT/PLAN: 46 y/o M w/PMH of pre-diabetes presents to same day surgery/ambulatory services for C5-C6-C7 anterior cervical discectomy w/Dr. Crisostomo today. Admitted to ICU s/ p surgery for monitoring. -B/L UE paresthesias secondary to cervical herniations -GEORGE C5-C7, C6 corpectomy, C5-C7 ACDF POD #1 -Neuro checks s/p surgery --pain management: continue Dilaudid SEWAGE PLANT OPERATOR protocol,Oxycodone 30 mg TID. per surgery -antiemetics zofran 4 mg IVpush Q4hr -venodynes -diet as tolerated -incentive spirometry - neuro checks - can monitor on floor if ok with surgery -Lorazepam 1 mg TID per ICU team - post op course notable for hematoma which was evacuated and small durotomy. * yesterday pt went back to OR for corpectomy and repair of durotomy with reconstruction. * Transferred to ICU for post op monitoring. * Post op abx given by surgery (Vancomycin 1gm once and cafazolin Q6hr per surgery ) * Started on Gabapentin per surgery -DVT ppx -SCDs both legs s/p surgery -FEN -NS 100 cc/hr , -Monitor electrolytes - advance diet as tolerated. -Dispo: -Admit to ICU s/p surgery. Visit type - Emergency Visit Emergency Visit: No - New Patient This patient is new to me today: No - Critical Care Critical Care patient: Yes Total Critical Care Time (in minutes): 40 Critical Care Statement: The care of this patient involved high complexity decision making to prevent further life threatening deterioration of the patient 's condition and/or to evaluate & treat vital organ system(s) failure or risk of failure.
[2017-05-05] MEDS ORDERED: VANCOMYCIN 1 GRAM (PRE-DOCKED) 1,000 MG/250 ML BAG IVPB STA (09:05)
[2017-05-05] MEDS ORDERED: PT OWN MED DRAWER 7, Y5N ONE ×5 (09:22→23:42)
--- NOTE | 2017-05-05 09:51 | OP ---
DATE OF OPERATION: 05/04/2017 SURGEON: Vitaly Crisostomo MD DIRECTOR OF SLOT OPERATIONS: Salvatore Brandon M.D. PREOPERATIVE DIAGNOSIS: C5-C6 durotomy. POSTOPERATIVE DIAGNOSIS: C5-C6 durotomy. SURGICAL PROCEDURES: 1. Removal of hardware C5 to C7. 2. C6 corpectomy. 3. Primary repair of C5-C6 durotomy with myofascial flap. 4. C5 to C7 anterior cervical instrumented fusion with cage and autograft. ANESTHESIA: General endotracheal tube anesthesia. POSITION: Supine. INCISION: Right transverse. ESTIMATED BLOOD LOSS: 25 mL. INTRAVENOUS FLUID: See Anesthesia record. SPECIMENS: None. DRAINS: None. COMPLICATIONS: None. URINE OUTPUT: See Anesthesia record. BACTERIOLOGY: None. TRANSFUSIONS: None. CLOSURE: 2-0 Vicryl and 3-0 Biosyn. INDICATIONS: The patient is a 46-year-old male who underwent a C5-C6 and C6-C7 anterior cervical diskectomy and fusion on Monday, May 01, 2017. 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 The spinal cord was involuted and appeared compressed secondary to residual, scarred posterior longitudinal ligament. During the elevation of this involuted segment of spinal cord, an incidental durotomy occurred. At that time, the defect was sealed successfully with DuraSeal fibrin glue and the case proceeded as per usual. On the 1st day postop, the patient made an excellent neurological recovery relative to his pre-operative clinical picture. On the 2nd day postop, his neurological status declined, and he was experiencing with migraine headaches. At that time it was noted that his drain was suctioning copious amounts of cerebrospinal fluid. The drain was taken off suction, and the patient was indicated for removal of hardware with primary closure of the durotomy to seal the dural leak and re-instrumentation. DESCRIPTION OF PROCEDURE: The patient was identified in the holding area by his arm band. A long discussion was held with the patient in the presence of his family regarding the risks, benefits and alternatives of the above-named procedure. The risks include but are not limited to: Pain, bleeding, infection, damage to surrounding structures (including nerves, blood vessels, skin, ligaments, tendons and bone), wound complications, malunion, nonunion, pseudarthrosis, delayed union, failure of hardware/implants/reduction, need for further surgery, blood clots, myocardial infarction, pulmonary embolism, anesthesia complications, loss of function, cerebrospinal fluid leak, need for placement of a spinal drain, and . Benefits as mentioned above. Alternatives include no surgery. All questions were answered. The patient and his family understood and agreed to the procedure. Informed consent was obtained, witnessed and verified. The patient' s neck was marked, and the patient was taken to the operating room after being seen by the anesthesia and nursing staff. The patient was brought into the operating room, transferred to the OR table and secured with the safety strap. Consent and the operative site were again verified with the patient, and nursing and anesthesia staff. Anesthesia was administered without complications. Two grams of IV Ancef and one gram of IV vancomycin were administered. A time-out was done, led by , the attending surgeon. Preoperative orthopedic examination revealed copious CSF drainage from his drain. The drain was removed at this time. The patient was positioned with bony prominences well padded, and the neuromonitoring team placed all of the appropriate neuromonitoring leads. A Rosales catheter was inserted. Gentle traction was applied to both shoulders using silk tape. The operative site was then prepped and draped in standard sterile fashion. A time-out was again done and the case began. The previous incision was utilized to access the cervical spine. The plane of dissection around the lateral strap muscles on the right side was utilized once again to access the spine. Standard retractors were placed, giving us excellent visualization of the in situ hardware. The anterior cervical plate, corresponding screws, and C5-6 & 6-7 cages were then removed. There was no active dural leak at that time. A corpectomy of the C6 vertebral body was then performed and the C6 bone was retained for allograft. Next, the vertebral bodies of C5, C6 and C7 were further corpectomized laterally, with safe medial margins of the vertebral artery. This was confirmed on MRI imaging. This bony work allowed us excellent visualization of the dural defect and adequate access to repair it. At this time, the dural defect on the left side of the C5-C6 interbody disk space was adequately identified to be 1 to 2 mm in length. There was a nerve root herniated through this dural defect, which appeared to be near the axilla of the exit of the C6 nerve root. Excellent hemostasis was achieved, and the nerve root was successfully reduced. A single 4-0 Nurolon suture was utilized with a myofascial flap/patch to secure and close the dural defect. A sustained Valsalva maneuver at 40 mmHg was maintained for 20 to 30 seconds, during which there was no active dural leak visualized at the site of repair. At this point we measured and utilized a 31 mm stackable corpectomy cage, which was filled with autograft bone. Gentle traction was pulled on the head by the ice house supervisor. The cage was then placed and traction was released, allowing the impaction of the C5 & C7 vertebral bodies onto the cage, securing it. Next, a 38-mm plate with four 16-mm screws was utilized anteriorly into the vertebral bodies of C5 and C7. Fluoroscopic images in multiple planes showed that the instrumentation was in satisfactory position. Copious irrigation was performed. Hemostasis was assured, and the wound was closed primarily using 2-0 Vicryl sutures and 3-0 Biosyn. The wounds were clean and dry at the end of the case. As hemostasis was assured, no drain was utilized. A sterile compressive dressing was applied. The sponge and needle counts were correct at the end of the case. I, the attending surgeon, was present and scrubbed throughout the case. The patient was then extubated by the anesthesia staff, without evidence of complication, and was transferred to the recovery room in stable condition, having tolerated the procedure well. MD ERIC [id number] MTDD
--- NOTE | 2017-05-05 09:52 | PN ---
Progress Note (short form) - Note Progress Note: Patient seen and examined in the ICU. Awake and alert. Reports pain despite MANAGER RESEARCH. (+) Weakness and neuropathy in his UE. No CP or SOB on RA. Intake & Output 05/02/17 05/03/17 05/04/17 05/05/17 23:59 23:59 23:59 23:59 Intake Total 2216 2700 1235 Output Total 5330 570 5252 800 Balance 436 -376 -2269 435 Weight 175 lb 6.4 oz Last Vital Signs Temp Pulse Resp BP Pulse Ox 98.8 F 82 18 137/89 98 05/05/17 06:00 05/05/17 07:35 05/05/17 07:35 05/05/17 07:35 05/05/17 07:41 Active Medications Cefazolin Sodium (Ancef 1gm Ivpb (Pre-Docked)) 1 gm IVPB Q6H [facility] Stop: 05/05/17 21:07 Chlorhexidine Gluconate (Hibiclens For Decolonization -) 1 applic TP HS [facility] Last Admin: 05/04/17 21:34 Dose: 1 applic Gabapentin (Neurontin -) 100 mg PO TID [facility] Hydromorphone HCl (Dilaudid Tugger Operator -) 10 mg MANAGER RESEARCH MANAGER RESEARCH [facility] PRN Reason: Protocol Last Admin: 05/04/17 20:43 Dose: 10 mg Sodium Chloride (1/2 Normal Saline) 1,000 mls @ 100 mls/hr IV ASDIR [facility] Last Admin: 05/05/17 01:00 Dose: 100 mls/hr Lorazepam (Ativan Injection -) 1 mg IVPUSH Q8H PRN PRN Reason: ANXIETY Last Admin: 05/05/17 04:45 Dose: 1 mg Mupirocin (Bactroban Ointment (For Decolonization) -) 1 applic NS BID [facility] Stop: 05/09/17 21:59 Last Admin: 05/04/17 21:33 Dose: 1 applic Ondansetron HCl (Zofran Injection) 4 mg IVPUSH Q6H PRN PRN Reason: NAUSEA AND/OR VOMITING Ondansetron HCl (Zofran Injection) 4 mg IVPUSH Q4H PRN PRN Reason: NAUSEA AND/OR VOMITING Oxycodone HCl (Roxicodone -) 30 mg PO TID [facility] Last Admin: 05/05/17 05:33 Dose: 30 mg Vancomycin HCl (Vancomycin (Pre-Docked)) 1,000 mg IVPB ONCE STA PRN Reason: Protocol Stop: 05/05/17 09:06 Gen: Awake and alert Neck: Yes: dressing intact Cardiovascular: Yes: Regular Rate and Rhythm, S1, S2 Respiratory: Yes: CTA Bilaterally Gastrointestinal: Yes: WNL Musculoskeletal: Yes: WNL Extremities: Yes: WNL Edema: No Wound/Incision: Yes: Dressing Dry and Intact Neurological: Yes: Alert, Oriented Labs: Laboratory Results - last 24 hr 05/04/17 05/04/17 15:45 16:30 WBC 10.3 H RBC 4.84 Hgb 13.8 Hct 41.5 MCV 85.7 MCH 28.5 MCHC 33.3 RDW 13.7 Plt Count 237 MPV 8.8 Neutrophils % 84.9 H Lymphocytes % 10.2 D Monocytes % 4.8 Eosinophils % 0.0 Basophils % 0.1 Sodium 137 Potassium 4.1 Chloride 100 Carbon Dioxide 28 Anion Gap 9 BUN 10 D Creatinine 0.9 D Random Glucose 111 H Calcium 8.7 Assessment/Plan POD #1 Corpectomy and repair of durotomy with reconstruction S/P Cervical discectomy and fusion on 05/01 S/P hematoma evacuation and durotomy. Dilaudid MANAGER RESEARCH Noted Neurontin to be added No NSAIDS PO as tolerated SCDs IVF Incentive Spirometry Floor when OK with surgery Dr Florentino Critical care time spent in reviewing chart, evaluating patient and formulating plan - 36 minutes.
--- NOTE | 2017-05-05 09:54 | PN ---
Progress Note (short form) - Note Progress Note: Anesthesia post op note, RUG SIZER follow up. POD#1, S/P. GEORGE C5-C7. 2. C6 corpectomy. 3. Repair C5-C6 durotomy w/ myofascial flap. 4. ACDF C5-C7 under GETA. Pat seen and examined. ON RUG SIZER. C/o Pain in left hand, LE bilateral in addition to pain in neck and surgical site. VSS. No apparent post anesthesia complications. will continue RUG SIZER , re-assessment in 24 hours.
--- NOTE | 2017-05-05 10:05 | PN ---
Teaching Attending Note Name of Resident: Balbir Chandler ATTENDING PHYSICIAN STATEMENT I saw and evaluated the patient. I reviewed the resident's note and discussed the case with the resident. I agree with the resident's findings and plan as documented. SUBJECTIVE: Patient is feeling better today, no headache, feels happy. OBJECTIVE: Vital Signs Temperature 98.8 F 05/05/17 06:00 Pulse Rate 82 05/05/17 07:35 Respiratory Rate 18 05/05/17 07:35 Blood Pressure 137/89 05/05/17 07:35 O2 Sat by Pulse Oximetry (%) 98 05/05/17 07:41 CBCD WBC 10.3 K/mm3 (4.0-10.0) H 05/04/17 16:30 RBC 4.84 M/mm3 (4.00-5.60) 05/04/17 16:30 Hgb 13.8 GM/dL (11.7-16.9) 05/04/17 16:30 Hct 41.5 % (35.4-49) 05/04/17 16:30 MCV 85.7 fl (80-96) 05/04/17 16:30 MCHC 33.3 g/dl (32.0-35.9) 05/04/17 16:30 RDW 13.7 % (11.9-15.9) 05/04/17 16:30 Plt Count 237 K/MM3 (134-434) 05/04/17 16:30 MPV 8.8 fl (7.5-11.1) 05/04/17 16:30 CMP Sodium 137 mmol/L (136-145) 05/04/17 15:45 Potassium 4.1 mmol/L (3.5-5.1) 05/04/17 15:45 Chloride 100 mmol/L (98-107) 05/04/17 15:45 Carbon Dioxide 28 mmol/L (21-32) 05/04/17 15:45 Anion Gap 9 (8-16) 05/04/17 15:45 BUN 10 mg/dL (7-18) D 05/04/17 15:45 Creatinine 0.9 mg/dL (0.7-1.3) D 05/04/17 15:45 Creat Clearance w eGFR > 60 (>60) 05/03/17 07:20 Random Glucose 111 mg/dL (74-106) H 05/04/17 15:45 Calcium 8.7 mg/dL (8.5-10.1) 05/04/17 15:45 Total Bilirubin 0.8 mg/dL (0.2-1.0) 05/03/17 07:20 AST 36 U/L (15-37) 05/03/17 07:20 ALT 35 U/L (12-78) 05/03/17 07:20 Alkaline Phosphatase 58 U/L (45-117) 05/03/17 07:20 Total Protein 7.4 g/dl (6.4-8.2) 05/03/17 07:20 Albumin 3.8 g/dl (3.4-5.0) 05/03/17 07:20 Current Medications Generic Name Dose Route Start Last Admin Trade Name Freq PRN Reason Stop Dose Admin Cefazolin Sodium 1 gm 05/05/17 09:06 Ancef 1gm Ivpb (Pre-Docked) IVPB 05/05/17 21:07 Q6H GA Chlorhexidine Gluconate 1 applic 05/04/17 22:00 05/04/17 21:34 Hibiclens For Decolonization - TP 1 applic HS GA Administration Gabapentin 100 mg 05/05/17 14:00 Neurontin - PO TID GA Gabapentin 100 mg 05/05/17 10:01 Neurontin - PO 05/05/17 10:02 ONCE ONE Hydromorphone HCl 10 mg 05/04/17 20:30 05/04/17 20:43 Dilaudid Chemical Handler - HVAC R INSTRUCTOR 10 mg HVAC R INSTRUCTOR GA Administration Protocol Sodium Chloride 1,000 mls @ 100 mls/hr 05/04/17 15:15 05/05/17 01:00 1/2 Normal Saline IV 100 mls/hr ASDIR GA Administration Lorazepam 1 mg 05/04/17 15:15 05/05/17 04:45 Ativan Injection - IVPUSH 1 mg Q8H PRN Administration ANXIETY Mupirocin 1 applic 05/04/17 22:00 05/04/17 21:33 Bactroban Ointment (For Decolonization) - NS 05/09/17 21:59 1 applic BID GA Administration Ondansetron HCl 4 mg 05/04/17 15:15 Zofran Injection IVPUSH Q6H PRN NAUSEA AND/OR VOMITING Ondansetron HCl 4 mg 05/04/17 15:15 Zofran Injection IVPUSH Q4H PRN NAUSEA AND/OR VOMITING Oxycodone HCl 30 mg 05/04/17 22:00 05/05/17 05:33 Roxicodone - PO 30 mg TID GA Administration Vancomycin HCl 1,000 mg 05/05/17 09:05 Vancomycin (Pre-Docked) IVPB 05/05/17 09:06 ONCE STA Protocol Home Medications Medication Instructions Recorded Oxycodone HCl 30 mg PO Q8H 05/01/17 PE: per resident's note ASSESSMENT AND PLAN: Patient is a 46 y/o M w/PMH of pre-diabetes presents to same day surgery/ ambulatory services for C5-C6-C7 discectomy w/fusion w/Dr. Crisostomo today. POD #1 GEORGE C5-C7, C6 corpectomy, and C5-C7 Anterior cervical discectomy and fusion (POD 4). Pain control as per surgeon, PT/OT/Rehab, OOB. WBAT B/L UE & LE. HOB elevated to 30 degrees. continue incentive spirometry continue , neuro checks continue. DVT Px: SCDs for now ; Mechanical DVT only (SCD's, CARMITA's); No chemical DVT PPx. for at least 72hrs. -
[2017-05-05] MEDS ORDERED: GABAPENTIN 100 MG CAPSULE (FP) PO ONE (11:00)
[2017-05-05] MEDS ORDERED: VANCOMYCIN 1,000 MG in DEXTROSE 5%-WATER - 250 ML IVPB ONE (11:00)
--- NOTE | 2017-05-05 11:40 | PN ---
Progress Note (short form) - Note Progress Note: Anesthesia post op note, MECHANIC CHIEF follow up. POD#1, S/P. GEORGE C5-C7. 2. C6 corpectomy. 3. Repair C5-C6 durotomy w/ myofascial flap. 4. ACDF C5-C7 under GETA. Pat seen and examined. ON MECHANIC CHIEF. C/o Pain in left hand, LE bilateral in addition to pain in neck and surgical site. VSS. No apparent post anesthesia complications. will continue MECHANIC CHIEF , re-assessment in 24 hours.
[2017-05-05] MEDS ORDERED: HYDROmorphone *PCA* 10MG/50ML DISP.SYRIN PCA SCH (11:50)
--- NOTE | 2017-05-05 11:55 | PN ---
Progress Note (short form) - Note Progress Note: Anesthesia PHYSIOTHERAPY ASSISTANT management, Patient has been c/o pain, not relieved by PHYSIOTHERAPY ASSISTANT. Pain scale 12/10, decresed to 6/ 10 after the po meds and PHYSIOTHERAPY ASSISTANT doses given, but patient has been asking for pain medication before the additional dose was due. D/W . Will d/c Oxycodone orders which were the preop floor orders. will increase the PHYSIOTHERAPY ASSISTANT dose to 0.3 mg. Will follow up.
[2017-05-05] MEDS: ACETAMINOPHEN 1000 MG/100 ML VIAL (NON FORMULARY) IVPB SCH ×2 (12:06→21:12)
[2017-05-05] MEDS: MUPIROCIN 2% TOPICAL OINTMENT FOR DECOLONIZATION NS SCH ×2 (12:08→21:13)
--- NOTE | 2017-05-05 12:44 | PN ---
Progress Note (short form) - Note Progress Note: 46M s/p GEORGE C5-C7, C6 corpectomy, C5-C7 ACDF POD #0. (+) Neck & LUE pain in distribution of L C6. Pt. reports B/L UE & LE radiculopathic pain & paresthesias markedly improved since surgery. (+) Voiding; (+) Flatus; (-)BM. All labs & vitals reviewed. PE: AAOx3, NAD. C-Spine: Dressing C/D/I. Neck soft. Voice not hoarse. B/L UE M: C5-T1 intact. LUE S: C6 1/2; C5, C7-T1 2/2. RUE S: C5-T1 2/2. B/L LE M: L2-S1 intact. B/L LE S: L2-S1 intact. B/L UE & LE Sensorimotor Exam: Improved from baseline. B/L UE & LE V: Normal arterial supply & venous drainage. 46M s/p GEORGE C5-C7, C6 corpectomy, C5-C7 ACDF POD #0. -Strictly NO steroids or NSAID's. -Pain control: IV Tylenol, QUALITY ASSURANCE ANALYST. -Rose Mary-op Abx: Ancef & Vanc. -Mechanical DVT PPx. only (SCD's, CARMITA's); No chemical DVT PPx. -HOB elevated to 30 degrees. -PT/OT/Rehab, OOB. -PWB B/L UE: 5lbs; WBAT B/L LE. -Care per ICU & primary medical team. -Will follow. Vitaly Crisostomo MD (Orthopaedic Surgery)
[2017-05-05] MEDS: HYDROmorphone *PCA* 10MG/50ML DISP.SYRIN PCA SCH ×3 (13:25→20:45)
[2017-05-05] MEDS: CEFAZOLIN 1 GM PUSH 1 GM/10 ML DISP.SYRIN IVPUSH SCH ×3 (14:05→23:42)
[2017-05-05] MEDS: GABAPENTIN 100 MG CAPSULE (FP) PO SCH ×2 (14:05→21:13)
[2017-05-05] MEDS: CHLORHEXIDINE GLUCONATE 4% CLEANSER FOR DECOLONIZATION TP SCH (21:13)
--- NOTE | 2017-05-06 05:00 | PN ---
Physical Exam: SUBJECTIVE: Patient seen and examined at bedside. he is doing great , up cleaning and dressing him self, denies any fever, chills,headache, N/V/D/C, reports numbness, weakness on left arm,some pain in the surgical site, otherwise doing great. OBJECTIVE: Vital Signs Period Temp Pulse Resp BP Sys/Kumari Pulse Ox Last 24 Hr 98.6 F-99.2 F 70-151 16-20 114-150/62-91 96-98 GENERAL: The patient is awake, alert, and fully oriented, in no acute distress. HEAD: Normal with no signs of trauma. EYES: sclera anicteric, conjunctiva clear. ENT: moist mucous membranes. NECK: supple. anterior surgical site is clean and covered with gauze. LUNGS: Breath sounds equal, clear to auscultation bilaterally, no wheezes, no crackles, no accessory muscle use. HEART: Regular rate and rhythm, S1, S2 without murmur, rub or gallop. ABDOMEN: Soft, nontender, nondistended, normoactive bowel sounds, no guarding, no rebound, EXTREMITIES: 2+ pulses, warm, well-perfused, no edema. left arm 4/5 strength, right arm 5/5 , sensation decreased in left arm NEUROLOGICAL: Cranial nerves II through XII grossly intact. Normal speech, gait not observed. PSYCH: Normal mood, normal affect. SKIN: Warm, dry, no rashes or lesions noted Active Medications Generic Name Dose Route Start Last Admin Trade Name Freq PRN Reason Stop Dose Admin Chlorhexidine Gluconate 1 applic 05/04/17 22:00 05/05/17 21:13 Hibiclens For Decolonization - TP 1 applic HS GA Administration Gabapentin 100 mg 05/05/17 14:00 05/05/17 21:13 Neurontin - PO 100 mg TID [facility] Administration Hydromorphone HCl 10 mg 05/05/17 11:59 05/05/17 20:45 Dilaudid Landscape Architect - COPY LATHE OPERATOR 10 mg COPY LATHE OPERATOR [facility] Administration Protocol Sodium Chloride 1,000 mls @ 100 mls/hr 05/04/17 15:15 05/05/17 19:24 1/2 Normal Saline IV Not Given ASDIR GA Lorazepam 1 mg 05/04/17 15:15 05/05/17 04:45 Ativan Injection - IVPUSH 1 mg Q8H PRN Administration ANXIETY Mupirocin 1 applic 05/04/17 22:00 05/05/17 21:13 Bactroban Ointment (For Decolonization) - NS 05/09/17 21:59 Not Given BID GA Ondansetron HCl 4 mg 05/04/17 15:15 Zofran Injection IVPUSH Q6H PRN NAUSEA AND/OR VOMITING Ondansetron HCl 4 mg 05/04/17 15:15 Zofran Injection IVPUSH Q4H PRN NAUSEA AND/OR VOMITING CBC, BMP 05/06/17 05:50 05/06/17 05:50 ASSESSMENT/PLAN: 46 y/o M w/PMH of pre-diabetes presents to same day surgery/ambulatory services for C5-C6-C7 anterior cervical discectomy w/Dr. Crisostomo today. Admitted to ICU s/ p surgery for monitoring. -B/L UE paresthesias secondary to cervical herniations -GEORGE C5-C7, C6 corpectomy, C5-C7 ACDF POD #1 -Neuro checks s/p surgery --pain management: continue Dilaudid COPY LATHE OPERATOR protocol,Oxycodone 30 mg TID. per surgery -antiemetics zofran 4 mg IVpush Q4hr -venodynes -diet as tolerated -incentive spirometry - neuro checks - can monitor on floor if ok with surgery -Lorazepam 1 mg TID per ICU team - post op course notable for hematoma which was evacuated and small durotomy. * yesterday pt went back to OR for corpectomy and repair of durotomy with reconstruction. * Transferred to ICU for post op monitoring. * Post op abx given by surgery (Vancomycin 1gm once and cafazolin Q6hr per surgery ) * Started on Gabapentin per surgery -DVT ppx -SCDs both legs s/p surgery -FEN -NS 100 cc/hr , -Monitor electrolytes - advance diet as tolerated. -Dispo: -Admit to ICU s/p surgery. Visit type - Emergency Visit Emergency Visit: No - New Patient This patient is new to me today: No - Critical Care Critical Care patient: Yes Total Critical Care Time (in minutes): 40 Critical Care Statement: The care of this patient involved high complexity decision making to prevent further life threatening deterioration of the patient 's condition and/or to evaluate & treat vital organ system(s) failure or risk of failure. - Discharge Referral Referred to [facility] No
[2017-05-06] MEDS: ACETAMINOPHEN 1000 MG/100 ML VIAL (NON FORMULARY) IVPB SCH (05:33)
[2017-05-06 06:28] LABS: HEMATOCRIT 36.6 % (35.4-49); HEMOGLOBIN 12.2 GM/dL (11.7-16.9); MCH 28.4 pg (25.7-33.7); MCHC 33.2 g/dl (32.0-35.9); MEAN CELL VOLUME 85.4 fl (80-96); MEAN PLT VOLUME 8.2 fl (7.5-11.1); PLATELET COUNT 250 K/MM3 (134-434); RBC 4.28 M/mm3 (4.00-5.60); RDW 13.5 % (11.9-15.9); WHITE BLOOD COUNT 9.8 K/mm3 (4.0-10.0)
[2017-05-06] MEDS: GABAPENTIN 100 MG CAPSULE (FP) PO SCH ×2 (06:42→13:45)
[2017-05-06] MEDS: HYDROmorphone *PCA* 10MG/50ML DISP.SYRIN PCA SCH (06:42)
[2017-05-06 06:55] VITALS: TEMP 98.4
[2017-05-06 06:56] LABS: ANION GAP 5 (8-16); CALCIUM 8.3 mg/dL (8.5-10.1); CHLORIDE 98 mmol/L (98-107); CO2 33 mmol/L (21-32); GLUCOSE,RANDOM 99 mg/dL (74-106); MAGNESIUM 2.1 mg/dL (1.8-2.4); POTASSIUM 3.9 mmol/L (3.5-5.1); SODIUM 136 mmol/L (136-145)
[2017-05-06 07:01] LABS: ALK PHOS 53 U/L (45-117); BILIRUBIN,TOTAL 0.6 mg/dL (0.2-1.0); BLOOD UREA NITROGEN 8 mg/dL (7-18); CREATININE 0.7 mg/dL (0.7-1.3); PHOSPHOROUS 3.9 mg/dL (2.5-4.9); SGOT/AST 21 U/L (15-37); SGPT/ALT 30 U/L (12-78); TOT PROT 6.3 g/dl (6.4-8.2)
--- NOTE | 2017-05-06 08:09 | PN ---
Progress Note (short form) - Note Progress Note: Post op day#2.Patient stable and c/o pain score of 2-3/10.So HOIST MECHANIC is Dc and patient pit on po pain medication.P114.BP149/84 and spoe99% on RA.Patient stable.No any anesthesia related problem.Patient DC from the anesthesia care.
[2017-05-06] MEDS ORDERED: oxyCODONE HCL 5 MG TABLET PO PRN ×2 (08:10→12:07)
[2017-05-06] MEDS: MUPIROCIN 2% TOPICAL OINTMENT FOR DECOLONIZATION NS SCH (11:47)
--- NOTE | 2017-05-06 12:29 | PN ---
Teaching Attending Note Name of Resident: Devin Craft ATTENDING PHYSICIAN STATEMENT I saw and evaluated the patient. I reviewed the resident's note and discussed the case with the resident. I agree with the resident's findings and plan as documented. SUBJECTIVE: Patient seen and examined in the ICU. Looks much better clinically. Pain is controlled. No CP or SOB on RA. Intake & Output 05/03/17 05/04/17 05/05/17 05/06/17 23:59 23:59 23:59 23:59 Intake Total 2700 4685 800 Output Total 460 7175 1500 800 Balance -460 -4475 3185 0 Weight 175 lb 6.4 oz 175 lb 14.4 oz Last Vital Signs Temp Pulse Resp BP Pulse Ox 98.4 F 93 H 18 138/91 96 05/06/17 06:00 05/06/17 06:00 05/06/17 09:11 05/06/17 06:00 05/06/17 09:11 Active Medications Chlorhexidine Gluconate (Hibiclens For Decolonization -) 1 applic TP HS [facility] Last Admin: 05/05/17 21:13 Dose: 1 applic Gabapentin (Neurontin -) 100 mg PO TID [facility] Last Admin: 05/06/17 06:42 Dose: Not Given Lorazepam (Ativan Injection -) 1 mg IVPUSH Q8H PRN PRN Reason: ANXIETY Last Admin: 05/05/17 04:45 Dose: 1 mg Mupirocin (Bactroban Ointment (For Decolonization) -) 1 applic NS BID [facility] Stop: 05/09/17 21:59 Last Admin: 05/06/17 11:47 Dose: Not Given Ondansetron HCl (Zofran Injection) 4 mg IVPUSH Q6H PRN PRN Reason: NAUSEA AND/OR VOMITING Ondansetron HCl (Zofran Injection) 4 mg IVPUSH Q4H PRN PRN Reason: NAUSEA AND/OR VOMITING Oxycodone HCl (Roxicodone -) 30 mg PO Q8H PRN PRN Reason: PAIN LEVEL 6-10 Gen: Awake and alert Neck: Yes: dressing intact Cardiovascular: Yes: Regular Rate and Rhythm, S1, S2 Respiratory: Yes: CTA Bilaterally Gastrointestinal: Yes: WNL Musculoskeletal: Yes: WNL Extremities: Yes: WNL Edema: No Wound/Incision: Yes: Dressing Dry and Intact Neurological: Yes: Alert, Oriented Labs: Laboratory Results - last 24 hr 05/06/17 05/06/17 05:50 05:50 WBC 9.8 RBC 4.28 Hgb 12.2 D Hct 36.6 MCV 85.4 MCH 28.4 MCHC 33.2 RDW 13.5 Plt Count 250 MPV 8.2 Sodium 136 Potassium 3.9 Chloride 98 Carbon Dioxide 33 H Anion Gap 5 L BUN 8 Creatinine 0.7 D Creat Clearance w eGFR > 60 Random Glucose 99 Calcium 8.3 L Phosphorus 3.9 D Magnesium 2.1 Total Bilirubin 0.6 D AST 21 D ALT 30 Alkaline Phosphatase 53 Total Protein 6.3 L Albumin 3.0 L D Assessment/Plan POD #2 Corpectomy and repair of durotomy with reconstruction S/P Cervical discectomy and fusion on 05/01 S/P hematoma evacuation and durotomy. Pain control Neurontin No NSAIDS PO as tolerated SCDs Incentive Spirometry D/C planning Dr Florentino
--- NOTE | 2017-05-06 13:10 | PN ---
Physical Exam: SUBJECTIVE: Patient seen and examined in ICU Patient looks much better this morning. Patient denies pain and states he has not needed the CONCRETE INSPECTOR pump. Patient states he has a f/u with surgery on . OBJECTIVE: Vital Signs Period Temp Pulse Resp BP Sys/Kumari Pulse Ox Last 24 Hr 98.4 F-98.8 F 75-151 16-20 114-150/62-91 96-96 GENERAL: The patient is awake, alert, in no acute distress HEAD: Normal with no signs of trauma. EYES: Pupils reactive bilaterally. ENT: Oropharynx clear without exudates, moist mucous membranes. NECK: Dressing intact. C-collar in place LUNGS: Clear to auscultation bilaterally. No crackles, accessory muscle use. HEART: Regular rate and rhythm, S1, S2 . ABDOMEN: Soft, nontender, nondistended, normoactive bowel sounds, EXTREMITIES: 2+ pulses, warm, well-perfused, no edema NEUROLOGICAL: Awake, Oriented. No facial droop, Able to move all limbs. PSYCH: Normal mood, normal affect. Laboratory Results - last 24 hr 05/06/17 05/06/17 05:50 05:50 WBC 9.8 RBC 4.28 Hgb 12.2 D Hct 36.6 MCV 85.4 MCH 28.4 MCHC 33.2 RDW 13.5 Plt Count 250 MPV 8.2 Sodium 136 Potassium 3.9 Chloride 98 Carbon Dioxide 33 H Anion Gap 5 L BUN 8 Creatinine 0.7 D Creat Clearance w eGFR > 60 Random Glucose 99 Calcium 8.3 L Phosphorus 3.9 D Magnesium 2.1 Total Bilirubin 0.6 D AST 21 D ALT 30 Alkaline Phosphatase 53 Total Protein 6.3 L Albumin 3.0 L D Active Medications Generic Name Dose Route Start Last Admin Trade Name Freq PRN Reason Stop Dose Admin Chlorhexidine Gluconate 1 applic 05/04/17 22:00 05/05/17 21:13 Hibiclens For Decolonization - TP 1 applic HS [facility] Administration Gabapentin 100 mg 05/05/17 14:00 05/06/17 06:42 Neurontin - PO Not Given TID [facility] Lorazepam 1 mg 05/04/17 15:15 05/05/17 04:45 Ativan Injection - IVPUSH 1 mg Q8H PRN Administration ANXIETY Mupirocin 1 applic 05/04/17 22:00 05/06/17 11:47 Bactroban Ointment (For Decolonization) - NS 05/09/17 21:59 Not Given BID [facility] Ondansetron HCl 4 mg 05/04/17 15:15 Zofran Injection IVPUSH Q6H PRN NAUSEA AND/OR VOMITING Ondansetron HCl 4 mg 05/04/17 15:15 Zofran Injection IVPUSH Q4H PRN NAUSEA AND/OR VOMITING Oxycodone HCl 30 mg 05/06/17 12:07 Roxicodone - PO Q8H PRN PAIN LEVEL 6-10 ASSESSMENT/PLAN: 46 year old M with PMH of pre-diabetes presented for discectomy w/ fusion #Neuro Cervical Discectomy and fusion on 05/01 Corpectomy and repair of durotomy on 05/04 -Gabapentin 100 mg po tid -Oxycodone 30 mg po q8h prn -CONCRETE INSPECTOR stopped #FEN/GI -No IVF -wnl -Soft diet #Ppx -SCDs -no gi ppx #Dispo -Patient stable for d/c Visit type - Emergency Visit Emergency Visit: Yes ED Registration Date: 05/01/17 Care time: The patient presented to the Emergency Department on the above date and was hospitalized for further evaluation of their emergent condition. - New Patient This patient is new to me today: Yes Date on this admission: 05/06/17 - Critical Care Critical Care patient: Yes Total Critical Care Time (in minutes): 35 Critical Care Statement: The care of this patient involved high complexity decision making to prevent further life threatening deterioration of the patient 's condition and/or to evaluate & treat vital organ system(s) failure or risk of failure.
--- NOTE | 2017-05-06 13:57 | DS ---
Physical Exam: SUBJECTIVE: Patient seen and examined at bedside. he is doing great , up cleaning and dressing him self, denies any fever, chills,headache, N/V/D/C, reports some numbness, weakness on left arm,some pain in the surgical site, otherwise doing great. OBJECTIVE: Vital Signs Period Temp Pulse Resp BP Sys/Kumari Pulse Ox Last 24 Hr 98.4 F-98.8 F 75-151 16-20 114-138/62-91 96-96 PHYSICAL EXAM GENERAL: The patient is awake, alert, and fully oriented, in no acute distress. HEAD: Normal with no signs of trauma. EYES: sclera anicteric, conjunctiva clear. ENT: moist mucous membranes. NECK: supple. anterior surgical site is clean and covered with gauze. LUNGS: Breath sounds equal, clear to auscultation bilaterally, no wheezes, no crackles, no accessory muscle use. HEART: Regular rate and rhythm, S1, S2 without murmur, rub or gallop. ABDOMEN: Soft, nontender, nondistended, normoactive bowel sounds, no guarding, no rebound, EXTREMITIES: 2+ pulses, warm, well-perfused, no edema. left arm 4/5 strength, right arm 5/5 , sensation decreased in left arm NEUROLOGICAL: Cranial nerves II through XII grossly intact. Normal speech, gait not observed. PSYCH: Normal mood, normal affect. SKIN: Warm, dry, no rashes or lesions noted LABS Laboratory Results - last 24 hr 05/06/17 05/06/17 05:50 05:50 WBC 9.8 RBC 4.28 Hgb 12.2 D Hct 36.6 MCV 85.4 MCH 28.4 MCHC 33.2 RDW 13.5 Plt Count 250 MPV 8.2 Sodium 136 Potassium 3.9 Chloride 98 Carbon Dioxide 33 H Anion Gap 5 L BUN 8 Creatinine 0.7 D Creat Clearance w eGFR > 60 Random Glucose 99 Calcium 8.3 L Phosphorus 3.9 D Magnesium 2.1 Total Bilirubin 0.6 D AST 21 D ALT 30 Alkaline Phosphatase 53 Total Protein 6.3 L Albumin 3.0 L D CBC, BMP 05/06/17 05:50 05/06/17 05:50 HOSPITAL COURSE: Date of Admission:05/01/17 Date of Discharge: 05/06/17 Mr. dhaliwal is a 46 y/o M w/PMH of pre-diabetes presents to same day surgery/ ambulatory services for C5-C6-C7 anterior cervical discectomy w/Dr. Crisostomo today. Admitted to ICU s/p surgery for monitoring. for B/L UE paresthesias secondary to cervical herniations GEORGE C5-C7, C6 corpectomy, C5-C7 ACDF, pain was managed by surgery with Dilaudid API DEVELOPER protocol , Oxycodone 30 mg TID. antiemetics zofran 4 mg IVpush Q4hr .post op course notable for hematoma which was evacuated and small durotomy. 2 days ago pt went back to OR for corpectomy and repair of durotomy with reconstruction. Transferred to ICU for post op monitoring. Post op abx given by surgery ( Vancomycin 1gm once and cafazolin Q6hr per surgery ).Started on Gabapentin per surgery. for DVT ppx SCDs were applied on both legs s/p surgery. Today patient is stable and cleared by surgery , anesthesia and ICU team to discharged home on Oxycodeone 30 mg po TID PRN for pain. Patient understand the discharged home and will follow up with neurosurgeons Dr.shein Linares and Dr.Chudhry Chase within one week. Minutes to complete discharge: 40 Discharge Summary Reason For Visit: MID CERVICAL DISC DISORDER Condition: Stable - Instructions Diet, Activity, Other Instructions: keep dressing intact(Do not remove) until seen by Dr. Crisostomo at your follow up appointment on of this week. No showers or baths. Wear your cervical collar 23 out of 24 hours. You may remove for one hour daily. 04/19/2017 04/19/2017 oxycodone hcl 30 mg tablet 90 30 Vijay Crisostomo MS, MD Please follow up with DR.CHoudhry Chase within one week Please follow up with DR.Shein Vijay Berry MD within one week Please avoid any weight bearing or heavy duties If your symptoms worsen or you develop any fever, chills, please call 911 or you may come back to emergency room as soon as possible. Referrals: Vijay Crisostomo MD [Staff Physician] - 1 Week Salvatore Brandon MD, FAANS [Staff Physician] - 1 Week Disposition: HOME - Home Medications Comprehensive Discharge Medication List: Ambulatory Orders Oxycodone HCl 30 mg PO Q8H 05/01/17 This patient is new to me today: No Emergency Visit: No Critical Care patient: Yes Total Critical Care Time (in minutes): 40 Critical Care Statement: The care of this patient involved high complexity decision making to prevent further life threatening deterioration of the patient 's condition and/or to evaluate & treat vital organ system(s) failure or risk of failure. - Discharge Referral Referred to [facility] Med P.C.: No
[2017-05-06 14:39] VITALS: BP 128/65; PULSE 111
--- NOTE | 2017-05-06 15:04 | PN ---
Progress Note (short form) - Note Progress Note: 46M s/p GEORGE C5-C7, C6 corpectomy, C5-C7 ACDF POD #2. Pain well controlled. No LUE or RUE radiculopathic pain. Intermittent L C6 paresthesias. Neck pain & headaches resolved. Pt. reports B/L UE & LE radiculopathic pain & paresthesias markedly improved since surgery. (+) Voiding; (+) Flatus; (+)BM. All labs & vitals reviewed. PE: AAOx3, NAD. C-Spine: (+) Hard c-collar intact & in place. Dressing C/D/I. Neck soft. Voice not hoarse. B/L UE M: C5-T1 intact. LUE S: C6 1/2; C5, C7-T1 2/2. RUE S: C5-T1 2/2. B/L LE M: L2-S1 intact. B/L LE S: L2-S1 intact. B/L UE & LE Sensorimotor Exam: Improved from baseline. B/L UE & LE V: Normal arterial supply & venous drainage. 46M s/p GEORGE C5-C7, C6 corpectomy, C5-C7 ACDF POD #2. -Strictly NO steroids or NSAID's. -Pain control: Oral analgesia. -Mechanical DVT PPx. only (SCD's, CARMITA's); No chemical DVT PPx. -HOB elevated to 30 degrees. -PT/OT/Rehab, OOB. -PWB B/L UE: 5lbs; WBAT B/L LE. -Care per ICU & primary medical team. -Discharge planning. -Will follow. Vitaly Crisostomo MD (Orthopaedic Surgery)
--- NOTE | 2017-05-06 20:38 | PN ---
Teaching Attending Note Name of Resident: Balbir Chandler ATTENDING PHYSICIAN STATEMENT I saw and evaluated the patient. I reviewed the resident's note and discussed the case with the resident. I agree with the resident's findings and plan as documented. Patient is feeling better with no acute distress, pain is much better. Vital Signs Temperature 98.4 F 05/06/17 06:00 Pulse Rate 111 H 05/06/17 14:38 Respiratory Rate 20 05/06/17 14:38 Blood Pressure 128/65 05/06/17 14:38 O2 Sat by Pulse Oximetry (%) 96 05/06/17 09:11 CBCD WBC 9.8 K/mm3 (4.0-10.0) 05/06/17 05:50 RBC 4.28 M/mm3 (4.00-5.60) 05/06/17 05:50 Hgb 12.2 GM/dL (11.7-16.9) D 05/06/17 05:50 Hct 36.6 % (35.4-49) 05/06/17 05:50 MCV 85.4 fl (80-96) 05/06/17 05:50 MCHC 33.2 g/dl (32.0-35.9) 05/06/17 05:50 RDW 13.5 % (11.9-15.9) 05/06/17 05:50 Plt Count 250 K/MM3 (134-434) 05/06/17 05:50 MPV 8.2 fl (7.5-11.1) 05/06/17 05:50 CMP Sodium 136 mmol/L (136-145) 05/06/17 05:50 Potassium 3.9 mmol/L (3.5-5.1) 05/06/17 05:50 Chloride 98 mmol/L (98-107) 05/06/17 05:50 Carbon Dioxide 33 mmol/L (21-32) H 05/06/17 05:50 Anion Gap 5 (8-16) L 05/06/17 05:50 BUN 8 mg/dL (7-18) 05/06/17 05:50 Creatinine 0.7 mg/dL (0.7-1.3) D 05/06/17 05:50 Creat Clearance w eGFR > 60 (>60) 05/06/17 05:50 Random Glucose 99 mg/dL (74-106) 05/06/17 05:50 Calcium 8.3 mg/dL (8.5-10.1) L 05/06/17 05:50 Total Bilirubin 0.6 mg/dL (0.2-1.0) D 05/06/17 05:50 AST 21 U/L (15-37) D 05/06/17 05:50 ALT 30 U/L (12-78) 05/06/17 05:50 Alkaline Phosphatase 53 U/L (45-117) 05/06/17 05:50 Total Protein 6.3 g/dl (6.4-8.2) L 05/06/17 05:50 Albumin 3.0 g/dl (3.4-5.0) L D 05/06/17 05:50 Home Medications Medication Instructions Recorded Oxycodone HCl 30 mg PO Q8H 05/01/17 A/P; Patient is a 46 y/o M w/PMH of pre-diabetes presents to same day surgery/ ambulatory services for C5-C6-C7 discectomy w/fusion w/Dr. Crisostomo . POD #2 GEORGE C5-C7, C6 corpectomy, and C5-C7 Anterior cervical discectomy and fusion (POD 5). Continue pain meds as per surgery , patient has oxycodone at home will continue patient is being discharged home. -
== END 2017-05-06 14:40 | disposition home or self-care (01) | DRG 321 ==
LOC: JASU-SURG 06:51 → EDSTATUS 06:54 → JSAMEDAYSX 06:55 → JICU 20:17 → J8W 05-02 20:27 → JICU 05-04 15:35
PROVIDERS: ADMIT Orthopaedic Surgery Adult Reconstructive Orthopaedic Surgery; ATTEND Internal Medicine
PROC: 0RG20A0 Fusion of 2 or more Cervical Vertebral Joints with Interbody Fusion Device, Anterior Approach, Anterior Column, Open Approach (ICD-10-PCS; 2017-05-01)
PROC: 0RG2070 Fusion of 2 or more Cervical Vertebral Joints with Autologous Tissue Substitute, Anterior Approach, Anterior Column, Open Approach (ICD-10-PCS; 2017-05-01)
PROC: 0RB30ZZ Excision of Cervical Vertebral Disc, Open Approach (ICD-10-PCS; principal; 2017-05-01 11:00)
PROC: 0WP Anatomical Regions, General, Removal (ICD-10-PCS; 2017-05-04)
PROC: 0WQ Anatomical Regions, General, Repair (ICD-10-PCS; 2017-05-04)
PROC: 0RG20A0 Fusion of 2 or more Cervical Vertebral Joints with Interbody Fusion Device, Anterior Approach, Anterior Column, Open Approach (ICD-10-PCS; 2017-05-04)
PROC: 0RG2070 Fusion of 2 or more Cervical Vertebral Joints with Autologous Tissue Substitute, Anterior Approach, Anterior Column, Open Approach (ICD-10-PCS; 2017-05-04)
DX: M48.02 Spinal stenosis, cervical region (principal); M47.012 Anterior spinal artery compression syndromes, cervical region; G96.11 Dural tear
CPT/HCPCS: 36415; 72141-TC; 76000-TC-FY; 76001-TC-FY; 80048; 80053; 81003; 83735; 84100; 85025; 85027; 85610; 86850; 86900; 86901; 88304-TC; 93005; 93010; 94010; 94760; 97116-GP; 97161-GP; J1100; J1644

== ENCOUNTER 2017-05-09 15:56 | Inpatient (IN) | payer OTHER ==
--- NOTE | 2017-05-09 16:05 | PDOC ---
Rapid Medical Evaluation Time Seen by Provider: 05/09/17 15:59 Medical Evaluation: Allergies Allergy/AdvReac Type Severity Reaction Status Date / Time No Known Drug Allergies Allergy Verified 05/01/17 09:18 05/09/17 15:59 The patient presents with a chief complaint of: Pain to surgical site. S/P removal of c4-c7 with mechanical fusion on 05/01/17. Pt states had a puncture of his spinal cord and was re-operated on on 05/04/[address] Arriola. he now has swelling and pain to the operation site and pain with weakness to the L arm. Dr. Arriola to see patient I have performed a brief in-person evaluation of this patient; Pertinent physical exam findings: Gross swelling to the surgical site, decreased strength on the L hand with squeeze test. I have ordered the following: CBC, CMP, PT/INR, Lactic, CRP, Sed rate, MRI cervical spine. The patient will proceed to the ED for further evaluation. Discharge Disposition - Referrals Referrals: Jerald Beltre [Primary Care Provider] - - Patient Instructions - Post Discharge Activity
[2017-05-09 16:07] VITALS: BMI 24.3
[2017-05-09 16:51] LABS: EOS % 3.6 % (0-4.5); HEMATOCRIT 37.4 % (35.4-49); HEMOGLOBIN 12.8 GM/dL (11.7-16.9); LYMPH % 26.9 % (8-40); MCHC 34.4 g/dl (32.0-35.9); MEAN CELL VOLUME 84.4 fl (80-96); MEAN PLT VOLUME 8.1 fl (7.5-11.1); NEUT % 57.5 % (42.8-82.8); PLATELET COUNT 346 K/MM3 (134-434); RBC 4.43 M/mm3 (4.00-5.60); RDW 13.5 % (11.9-15.9); WHITE BLOOD COUNT 7.4 K/mm3 (4.0-10.0)
[2017-05-09 17:12] LABS: INR 1.04 (0.82-1.09); PROTHROMBIN TIME (PATIENT) 11.8 SEC (9.98-11.88)
[2017-05-09 17:13] LABS: ALBUMIN 3.6 g/dl (3.4-5.0); ALK PHOS 71 U/L (45-117); ANION GAP 7 (8-16); BILIRUBIN,TOTAL 0.4 mg/dL (0.2-1.0); BLOOD UREA NITROGEN 9 mg/dL (7-18); CALCIUM 8.5 mg/dL (8.5-10.1); CHLORIDE 96 mmol/L (98-107); CO2 32 mmol/L (21-32); CREATININE 0.9 mg/dL (0.7-1.3); GLUCOSE,RANDOM 101 mg/dL (74-106); POTASSIUM 3.7 mmol/L (3.5-5.1); SGOT/AST 36 U/L (15-37); SGPT/ALT 63 U/L (12-78); SODIUM 135 mmol/L (136-145); TOT PROT 7.5 g/dl (6.4-8.2)
--- NOTE | 2017-05-09 18:37 | PDOC ---
History of Present Illness - General History Source: Patient Exam Limitations: No Limitations - History of Present Illness Initial Comments: 05/09/17 20:31 The patient is a 46 year old male, with no significant past medical history, who presents to the ED with neck swelling and bilateral arm tinging and numbness s/p cervical spine surgery approx. 5 days ago. The patient reports he had a follow up visit with his PCP Dr. Jerald Beltre prior to arrival who advised him to come to the ED for evaluation/MRI of the neck swelling. The patient reports the bilateral arm swelling is worse in the left arm and reports associated left arm weakness. He denies recent fever, chills, headache or dizziness. He denies recent nausea, vomit, diarrhea or constipation. He denies recent chest pain or shortness of breath. Allergies: NKA PCP: Dr. Jerald Diaz <Lito Bang - Last Filed: 05/09/17 20:58> <Kristi Bocanegra - Last Filed: 05/09/17 21:14> - General Chief Complaint: Pain, Acute Stated Complaint: PCP SENT Time Seen by Provider: 05/09/17 15:59 Past History <Lito Bang - Last Filed: 05/09/17 20:58> - Past Medical History Anemia: No Asthma: No Cancer: No Cardiac Disorders: No CVA: No COPD: No CHF: No Dementia: No Diabetes: No GI Disorders: No Disorders: No HTN: No Hypercholesterolemia: No Liver Disease: No Seizures: No Thyroid Disease: No - Surgical History Abdominal Surgery: Yes (Right inguinal hernia) Appendectomy: No Cardiac Surgery: No Cholecystectomy: No Lung Surgery: No Neurologic Surgery: No Orthopedic Surgery: No - Immunization History Immunization Up to Date: Yes - Suicide/Smoking/Psychosocial Hx Smoking History: Never smoked Have you smoked in the past 12 months: No If you are a former smoker, when did you quit?: 10yrs Information on smoking cessation initiated: No Hx Alcohol Use: No Drug/Substance Use Hx: No Substance Use Type: None Hx Substance Use Treatment: No <Kristi Bocanegra - Last Filed: 05/09/17 21:14> - Past Medical History Allergies/Adverse Reactions: Allergies Allergy/AdvReac Type Severity Reaction Status Date / Time No Known Drug Allergies Allergy Verified 05/09/17 15:59 Home Medications: Ambulatory Orders Oxycodone HCl 30 mg PO Q8H 05/01/17 Review of Systems - Review of Systems Comments:: 05/09/17 20:31 GENERAL/CONSTITUTIONAL: No fever or chills. HEAD, EYES, EARS, NOSE AND THROAT: No change in vision. No ear pain or discharge. No sore throat. CARDIOVASCULAR: No chest pain or shortness of breath. RESPIRATORY: No cough, wheezing, or hemoptysis. GASTROINTESTINAL: No nausea, vomiting, diarrhea or constipation. GENITOURINARY: No dysuria, frequency, or change in urination. MUSCULOSKELETAL: +Neck pain and swelling. SKIN: No rash NEUROLOGIC: +Bilateral arm tingling. +Left arm weakness. No headache, vertigo, loss of consciousness. ENDOCRINE: No increased thirst. No abnormal weight change. HEMATOLOGIC/LYMPHATIC: No anemia, easy bleeding, or history of blood clots. ALLERGIC/IMMUNOLOGIC: No hives or skin allergy. <Lito Bang - Last Filed: 05/09/17 20:58> *Physical Exam - Vital Signs Last Vital Signs Temp Pulse Resp BP Pulse Ox 98.7 F 88 16 127/81 99 05/09/17 16:01 05/09/17 16:01 05/09/17 16:01 05/09/17 16:01 05/09/17 16:01 - Physical Exam Comments: 05/09/17 20:59 GENERAL: Awake, alert, and fully oriented. HEAD: No signs of trauma EYES: PERRLA, EOMI, sclera anicteric, conjunctiva clear ENT: Auricles normal inspection, hearing grossly normal, nares patent, oropharynx clear without exudates. Moist mucosa NECK: +Cervical anterior incision with swelling and tracheal deviation to the right. Collar in place. Patient is ambulatory. Patient is able to tolerate secretions and speaking in full sentences LUNGS: Breath sounds equal, clear to auscultation bilaterally. No wheezes, and no crackles HEART: Regular rate and rhythm, normal S1 and S2, no murmurs, rubs or gallops ABDOMEN: Soft, nontender, normoactive bowel sounds. No guarding, no rebound. No masses EXTREMITIES: +Weakness left upper extremity 3-4/5. Sensation in tact. Radial pulses intact. NEUROLOGICAL: Cranial nerves II through XII grossly intact. Normal speech, normal gait SKIN: Warm, Dry, normal turgor, no rashes or lesions noted. <Lito Bang - Last Filed: 05/09/17 20:58> - Vital Signs Last Vital Signs Temp Pulse Resp BP Pulse Ox 98.7 F 88 16 127/81 99 05/09/17 16:01 05/09/17 16:01 05/09/17 16:01 05/09/17 16:01 05/09/17 16:01 <Kristi Bocanegra - Last Filed: 05/09/17 21:14> ED Treatment Course - LABORATORY CBC & Chemistry Diagram: 05/09/17 16:23 05/09/17 16:23 - ADDITIONAL ORDERS Additional order review: Laboratory Results 05/09/17 05/09/17 05/09/17 16:23 16:23 16:23 PT with INR 11.80 INR 1.04 Sodium 135 L Potassium 3.7 Chloride 96 L Carbon Dioxide 32 Anion Gap 7 L BUN 9 Creatinine 0.9 D Creat Clearance w eGFR > 60 Random Glucose 101 Lactic Acid 1.1 Calcium 8.5 Total Bilirubin 0.4 D AST 36 D ALT 63 D Alkaline Phosphatase 71 D Total Protein 7.5 Albumin 3.6 Blood Type Antibody Screen 05/09/17 16:20 PT with INR INR Sodium Potassium Chloride Carbon Dioxide Anion Gap BUN Creatinine Creat Clearance w eGFR Random Glucose Lactic Acid Calcium Total Bilirubin AST ALT Alkaline Phosphatase Total Protein Albumin Blood Type O POSITIVE Antibody Screen Negative 05/09/17 16:23 RBC 4.43 MCV 84.4 MCHC 34.4 RDW 13.5 MPV 8.1 Neutrophils % 57.5 D Lymphocytes % 26.9 D Monocytes % 11.0 H D Eosinophils % 3.6 D Basophils % 1.0 D - RADIOLOGY Radiograph Interpretation: 05/09/17 20:45 EXAM#: TYPE/EXAM: RESULT: [id number] MRI/CERVICAL SPINE MRI W/O CONTR Clinical statement: Status post surgery with fluid collection. Rule out pseudomeningocele versus hematoma. Technique: MRI of the cervical spine was performed utilizing sagittal and coronal T2, sagittal T1, sagittal STIR, axial T1 and axial T2, and axial GRE sequences. Comparison: None available Findings: The patient is status post C5-C7 anterior cervical fusion with C6 corpectomy. There is extensive prevertebral fluid, likely postoperative. This fluid communicates with a right anterior neck collection measuring approximately 4.7 cm AP x 8.1 cm transverse x 5.6 cm craniocaudal. It extends from the C4 through the C7 levels. It does not communicate with the spinal canal. It follows the signal intensity of simple fluid. Findings are most likely related to large postoperative seroma. There is deviation of the trachea to the left. There is no compression of the trachea. There is preservation of the normal cervical lordosis. No acute fracture or subluxation is seen. Vertebral body heights are well maintained. The cervical spinal cord is normal in signal and caliber. Degenerative changes are as follows: C2-C3: No disc bulge/herniation. No significant central canal or foraminal stenosis. C3-C4: Tiny central disc herniation. No significant central canal or foraminal stenosis. C4-C5: Posterior osteophytic ridging with mild left foraminal stenosis. No significant central canal stenosis. C5-C6: Postoperative changes as above. Posterior osteophytic ridging. Moderate bilateral foraminal stenosis. No severe central canal stenosis. C6-C7: Postoperative changes as above. Posterior osteophytic ridging. Severe bilateral foraminal stenosis. No significant central canal stenosis. C7-T1: Postoperative changes as above. Posterior disc osteophytic ridging. Mild right foraminal stenosis. No significant central canal stenosis. The visualized posterior fossa is unremarkable. Impression: Status post post C5-C7 anterior cervical fusion with C6 corpectomy. Extensive prevertebral fluid, likely postoperative. Large right anterior neck collection, extending from the C4 through the C7 levels. It does not communicate with the spinal canal. It follows the signal intensity of simple fluid. Findings are most likely related to large postoperative seroma. Deviation of the trachea to the left. No compression of the trachea. For complete evaluation with CT scan may be of benefit to confirm the density of the fluid. Spondylotic changes as above. Reported By: Augusto Donato MD <Lito Bang - Last Filed: 05/09/17 20:58> - LABORATORY CBC & Chemistry Diagram: 05/09/17 16:23 05/09/17 16:23 - ADDITIONAL ORDERS Additional order review: Laboratory Results 05/09/17 05/09/17 05/09/17 16:23 16:23 16:23 PT with INR 11.80 INR 1.04 Sodium 135 L Potassium 3.7 Chloride 96 L Carbon Dioxide 32 Anion Gap 7 L BUN 9 Creatinine 0.9 D Creat Clearance w eGFR > 60 Random Glucose 101 Lactic Acid 1.1 Calcium 8.5 Total Bilirubin 0.4 D AST 36 D ALT 63 D Alkaline Phosphatase 71 D Total Protein 7.5 Albumin 3.6 Blood Type Antibody Screen 05/09/17 16:20 PT with INR INR Sodium Potassium Chloride Carbon Dioxide Anion Gap BUN Creatinine Creat Clearance w eGFR Random Glucose Lactic Acid Calcium Total Bilirubin AST ALT Alkaline Phosphatase Total Protein Albumin Blood Type O POSITIVE Antibody Screen Negative 05/09/17 16:23 RBC 4.43 MCV 84.4 MCHC 34.4 RDW 13.5 MPV 8.1 Neutrophils % 57.5 D Lymphocytes % 26.9 D Monocytes % 11.0 H D Eosinophils % 3.6 D Basophils % 1.0 D <Kristi Bocanegra - Last Filed: 05/09/17 21:14> Medical Decision Making - Medical Decision Making 05/09/17 20:12 a/p: 46yo male with anterior neck swelling 1 week after ACDF -labs -MRI cervical spine -will most likely need admission for OR tomorrow 05/09/17 20:13 discussed MRI findings with Dr. Arriola will be down to discuss findings with the patient -plan for OR tomorrow [facility] 05/09/17 20:[address] Benítez who accepts the patient to her service 05/09/17 21:[address] requests CT head without contrast to r/o hydrocephalus <Kristi Bocanegra - Last Filed: 05/09/17 21:14> *DC/Admit/Observation/Transfer - Attestations Scribe Attestion: 05/09/17 20:32 Documentation prepared by Lito Bang, acting as medical transcription supervisor for Kristi Bocanegra DO. <Lito Bang - Last Filed: 05/09/17 20:58> - Discharge Dispostion Admit: Yes - Attestations Physician Attestion: 05/09/17 20:14 I, Dr. Kristi Bocanegra DO, attest that this document has been prepared under my direction and personally reviewed by me in its entirety. I further attest, that it accurately reflects all work, treatment, procedures and medical decision -making performed by me. <Kristi Bocanegra - Last Filed: 05/09/17 21:14> Diagnosis at time of Disposition: Postoperative CSF leak - Discharge Dispostion Condition at time of disposition: Guarded - Referrals Referrals: Jerald Beltre [Primary Care Provider] - - Patient Instructions - Post Discharge Activity
[2017-05-09] MEDS ORDERED: oxyCODONE HCL 5 MG TABLET PO ONE (20:11)
[2017-05-09] MEDS ORDERED: oxyCODONE HCL 5 MG TABLET ONE (20:48)
[2017-05-09] MEDS ORDERED: SODIUM CHLORIDE 1,000 ML IV SCH (23:30)
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
[2017-05-10 07:33] LABS: BASO % 1.4 % (0-2.0); HEMATOCRIT 34.4 % (35.4-49); HEMOGLOBIN 11.5 GM/dL (11.7-16.9); LYMPH % 34.5 % (8-40); MCH 28.5 pg (25.7-33.7); MCHC 33.6 g/dl (32.0-35.9); MEAN CELL VOLUME 84.8 fl (80-96); MEAN PLT VOLUME 7.9 fl (7.5-11.1); MONO % 10.9 % (3.8-10.2); NEUT % 49.2 % (42.8-82.8); PLATELET COUNT 307 K/MM3 (134-434); RBC 4.05 M/mm3 (4.00-5.60); RDW 13.6 % (11.9-15.9); WHITE BLOOD COUNT 6.2 K/mm3 (4.0-10.0)
[2017-05-10 07:46] LABS: INR 1.11 (0.82-1.09); PROTHROMBIN TIME (PATIENT) 12.5 SEC (9.98-11.88)
[2017-05-10 07:48] LABS: ACTIVATED PTT 30.7 SECONDS (26.9-34.4)
--- NOTE | 2017-05-10 07:56 | PN ---
Teaching Attending Note Name of Resident: Toya Chan ATTENDING PHYSICIAN STATEMENT I saw and evaluated the patient. I reviewed the resident's note and discussed the case with the resident. I agree with the resident's findings and plan as documented. SUBJECTIVE: 46 y/o Male s/p cervical neck surgery ACDF presents c/o neck swelling along with b/l numbness and tingling in arms. OBJECTIVE: Gen: alert and oriented times 3, neck brace. HEENT: PERRLA, EOMI, Cervical collar in place, CVS: RRR, S1,S2 Lungs: CTA, wheeze Abd: soft, NT, ND, BS+ Ext: lat fingers decreased strength, claw hand effect, diminished sensation CBCD WBC 6.2 K/mm3 (4.0-10.0) 05/10/17 06:30 RBC 4.05 M/mm3 (4.00-5.60) 05/10/17 06:30 Hgb 11.5 GM/dL (11.7-16.9) L D 05/10/17 06:30 Hct 34.4 % (35.4-49) L 05/10/17 06:30 MCV 84.8 fl (80-96) 05/10/17 06:30 MCHC 33.6 g/dl (32.0-35.9) 05/10/17 06:30 RDW 13.6 % (11.9-15.9) 05/10/17 06:30 Plt Count 307 K/MM3 (134-434) 05/10/17 06:30 MPV 7.9 fl (7.5-11.1) 05/10/17 06:30 CMP Sodium 135 mmol/L (136-145) L 05/09/17 16:23 Potassium 3.7 mmol/L (3.5-5.1) 05/09/17 16:23 Chloride 96 mmol/L (98-107) L 05/09/17 16:23 Carbon Dioxide 32 mmol/L (21-32) 05/09/17 16:23 Anion Gap 7 (8-16) L 05/09/17 16:23 BUN 9 mg/dL (7-18) 05/09/17 16:23 Creatinine 0.9 mg/dL (0.7-1.3) D 05/09/17 16:23 Creat Clearance w eGFR > 60 (>60) 05/09/17 16:23 Random Glucose 101 mg/dL (74-106) 05/09/17 16:23 Calcium 8.5 mg/dL (8.5-10.1) 05/09/17 16:23 Total Bilirubin 0.4 mg/dL (0.2-1.0) D 05/09/17 16:23 AST 36 U/L (15-37) D 05/09/17 16:23 ALT 63 U/L (12-78) D 05/09/17 16:23 Alkaline Phosphatase 71 U/L (45-117) D 05/09/17 16:23 Total Protein 7.5 g/dl (6.4-8.2) 05/09/17 16:23 Albumin 3.6 g/dl (3.4-5.0) 05/09/17 16:23 ASSESSMENT AND PLAN: Admit for possible CSF leak case d/w Dr Arriola- plans for OR in AM, NPO, IVF , Consider antibiotics empirical therapy preop . admit to tlemetry and neurochecks q3h
[2017-05-10] MEDS ORDERED: HYDROmorphone HCL CARPU-JECT 2 MG/1 ML DISP.SYRIN SQ ONE (07:57)
[2017-05-10] MEDS ORDERED: HYDROmorphone HCL CARPU-JECT 2 MG/1 ML DISP.SYRIN IVPB ONE (07:57)
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
[2017-05-10] MEDS ORDERED: HYDROmorphone HCL CARPU-JECT 2 MG/1 ML DISP.SYRIN SQ PRN (08:01)
[2017-05-10 08:29] LABS: CALCIUM 8.8 mg/dL (8.5-10.1); CHLORIDE 101 mmol/L (98-107); POTASSIUM 4.3 mmol/L (3.5-5.1); SODIUM 138 mmol/L (136-145)
[2017-05-10 08:33] LABS: ANION GAP 10 (8-16); BLOOD UREA NITROGEN 9 mg/dL (7-18); CO2 27 mmol/L (21-32); CREATININE 0.6 mg/dL (0.7-1.3); GLUCOSE,RANDOM 87 mg/dL (74-106); MAGNESIUM 2.2 mg/dL (1.8-2.4); PHOSPHOROUS 3.3 mg/dL (2.5-4.9)
--- NOTE | 2017-05-10 09:24 | EKG ---
Test Reason : Blood Pressure : / mmHG Vent. Rate : 075 BPM Atrial Rate : 075 BPM P-R Int : 136 ms QRS Dur : 090 ms QT Int : 388 ms P-R-T Axes : 038 -08 -07 degrees QTc Int : 433 ms NORMAL SINUS RHYTHM MODERATE VOLTAGE CRITERIA FOR LVH, MAY BE NORMAL VARIANT NONSPECIFIC T WAVE ABNORMALITY ST ELEVATION, CONSIDER EARLY REPOLARIZATION, PERICARDITIS, OR INJURY Confirmed by WILLIAM RAUSCH MD ([id number]) on 05/10/2017 9:23:43 AM Referred By: Confirmed By:WILLIAM RAUSCH MD
[2017-05-10] MEDS ORDERED: THROMBIN (BOVINE) 5,000 UNIT VIAL TP ONE ×2 (10:02→16:40)
[2017-05-10] MEDS ORDERED: BUPIVACAINE HCL/PF 0.5% (5MG/ML) 10 ML VIAL ONE ×2 (10:04→16:02)
[2017-05-10] MEDS ORDERED: LIDOCAINE 1%/EPI 1:100000 (20 ML MULTI DOSE VIAL) ONE (10:04)
--- NOTE | 2017-05-10 10:06 | PN ---
Progress Note (short form) - Note Progress Note: 46M s/p C6 corpectomy, C5-C7 ACDF & C5-6 durotomy repair 05/04/2017 re-admitted d /t anterior neck swelling. (+) Headaches. (+) LUE neuropathic pain & L hand paresthesias; overall improved relative to pre -op. Full bowel & bladder control; normal perineal sensation. (+) Night sweats. Pt. denies chest pain, shortness of breath, nausea, vomiting, fevers, chills. All labs & vitals reviewed. Apyrexic. Aleukocytosis. ESR 54 & CRP 3.6, elevated. MRI C-Spine: (+) Anterior cervical fluid collection, most likely CSF. CT Head: (-) Enlarged ventricles; low concern for high pressure hydrocephalus. PE: AAO x 3, NAD. C-Spine: Incision C/D/I. Steri-strips intact & in place. No wound drainage. (+) Anterior neck fullness, improved from yesterday. B/L UE M: All muscles supplying shoulders, elbow, wrists, & hands intact. Strength assessment limited by functional weakness d/t neuropathic pain. LUE S: C5-T1 1/2. RUE S: C5-T1 2/2. B/L LE M: All muscles supplying hips, knees, ankles, hindfeet, midfeet, forefeet intact, 5/5. B/L LE S: L2-S1 2/2. B/L UE & LE V: Normal arterial supply and venous drainage. A/P: 46M p/w post-operative anterior cervical durotomy. -NPO, IVF. -Plan for OR this morning. -Will obtain consent. -Pain control. -IVF. -Admit to medical hospitalist service. -Will admit to ICU post-op. -Management plan discussed w/and understood by patient and his brother (over the phone). -Dr. Brandon (Neurosurgery) consulted; in agreement with the above plan. Vitaly Crisostomo MD (Orthopaedic Surgery).
[2017-05-10] MEDS ORDERED: THROMBIN (BOVINE) 20,000 UNIT VIAL TP ONE (10:38)
[2017-05-10] MEDS ORDERED: KETOROLAC TROMETHAMINE 30 MG/1 ML VIAL ONE ×2 (11:17→14:03)
[2017-05-10] MEDS ORDERED: ONDANSETRON 4 MG/2 ML VIAL ONE ×2 (11:17→14:03)
[2017-05-10] MEDS ORDERED: LIDOCAINE HCL/PF 2% SDV 5ML VIAL ONE ×2 (11:17→14:22)
[2017-05-10] MEDS ORDERED: DEXAMETHASONE SOD PHOSPHATE 4 MG/1 ML VIAL ONE ×3 (11:17→14:03)
[2017-05-10] MEDS ORDERED: PHENYLEPHRINE HCL 10 MG/1 ML SINGLE DOSE VIAL ONE (11:17)
[2017-05-10] MEDS ORDERED: ePHEDrine SULFATE 50 MG/1 ML AMPULE ONE (11:18)
[2017-05-10] MEDS ORDERED: SODIUM CHLORIDE 0.9% P/F 10 ML VIAL IJ ONE ×3 (11:19→14:36)
[2017-05-10] MEDS ORDERED: PROPOFOL 20 ML ONE ×16 (11:19→17:35)
[2017-05-10] MEDS ORDERED: ROCURONIUM BROMIDE 50 MG/5 ML VIAL ONE ×3 (11:20→14:51)
[2017-05-10] MEDS ORDERED: SUCCINYLCHOLINE CHLORIDE 200 MG/10 ML VIAL ONE ×2 (11:20→14:02)
[2017-05-10] MEDS ORDERED: DESFLURANE GAS 240 ML BOTTLE IH ONE (11:30)
[2017-05-10] MEDS ORDERED: SEVOFLURANE 250 ML BTL ONE (11:30)
[2017-05-10] MEDS ORDERED: ONDANSETRON 4 MG/2 ML VIAL IVPUSH PRN ×3 (11:51→20:17)
[2017-05-10] MEDS ORDERED: LACTATED RINGERS SOLUTION 1,000 ML IV SCH ×2 (12:00→19:30)
[2017-05-10] MEDS ORDERED: GENTAMICIN SO4 80 MG/2 ML VIAL ONE (12:19)
[2017-05-10] MEDS ORDERED: BENZOIN/ALOE VERA/STORAX/TOLU 58 ML BOTTLE ONE (12:19)
[2017-05-10] MEDS ORDERED: BACITRACIN 15 GM TUBE TOPICAL OINTMENT ONE (12:19)
[2017-05-10] MEDS ORDERED: MIDAZOLAM HCL 2 MG/2 ML SINGLE DOSE VIAL ONE ×4 (12:46→13:57)
[2017-05-10] MEDS ORDERED: fentaNYL CITRATE 250 MCG/5 ML VIAL ONE ×2 (12:46→13:53)
[2017-05-10] MEDS ORDERED: GLYCOPYRROLATE 0.2 MG/1 ML VIAL ONE ×2 (13:42→16:02)
[2017-05-10] MEDS ORDERED: ceFAZolin SODIUM 1 GM VIAL ONE ×2 (13:51→17:28)
[2017-05-10] MEDS ORDERED: ceFAZolin SODIUM 1 GM VIAL IVPB ONE ×2 (14:15→17:15)
[2017-05-10] MEDS ORDERED: VANCOMYCIN 1 GRAM (PRE-DOCKED) 1,000 MG/250 ML BAG IVPB ONE (14:31)
[2017-05-10] MEDS ORDERED: VANCOMYCIN 1,000 MG VIAL (RESTRICTED TO ID ONLY) ONE (14:36)
[2017-05-10] MEDS ORDERED: NEOSTIGMINE METHYLSULFATE 0.5 MG/ML - 10 ML MDV ONE (16:02)
[2017-05-10] MEDS ORDERED: BUPIVACAINE HCL/PF 0.25% (2.5MG/ML) 10 ML VIAL ONE (16:27)
[2017-05-10] MEDS ORDERED: BUPIVACAINE HCL/PF 0.5% (5MG/ML) 10 ML VIAL IJ ONE (16:35)
[2017-05-10] MEDS ORDERED: BUPIVACAINE HCL/PF 0.25% (2.5MG/ML) 10 ML VIAL IJ ONE (16:40)
--- NOTE | 2017-05-10 17:50 | PN ---
Teaching Attending Note Name of Resident: Balbir Chandler ATTENDING PHYSICIAN STATEMENT I saw and evaluated the patient. I reviewed the resident's note and discussed the case with the resident. I agree with the resident's findings and plan as documented. SUBJECTIVE: seen at around 10 am No fever or chills , has pain in neck anterior and posterior site . weakness in L UE , and numbness in LUE and LLE . ASSESSMENT AND PLAN: 46 y/o male with/o recent C5-7 fusion and C6 corpectomy with durotomy who presented with neck pain and swelling 1- Fluid collection in neck: likely seroma. - OR today - NO DVT px x 72 hrs after sx . - pain management - dc IVF in am
[2017-05-10] MEDS ORDERED: MEPERIDINE HCL CARPU-JECT 25 MG/1 ML DISP.SYRIN ONE (19:08)
[2017-05-10] MEDS ORDERED: HYDROmorphone *PCA* 10MG/50ML DISP.SYRIN PCA SCH (19:15)
[2017-05-10] MEDS ORDERED: MEPERIDINE HCL CARPU-JECT 25 MG/1 ML DISP.SYRIN IVPUSH ONE ×2 (19:16→20:17)
[2017-05-10] MEDS ORDERED: HYDROmorphone *PCA* 10MG/50ML DISP.SYRIN PCA ONE (19:26)
[2017-05-10] MEDS ORDERED: ACETAMINOPHEN 1000 MG/100 ML VIAL (NON FORMULARY) IVPB SCH (19:30)
[2017-05-10] MEDS: HYDROmorphone *PCA* 10MG/50ML DISP.SYRIN PCA SCH (19:35)
--- NOTE | 2017-05-10 20:00 | PN ---
Progress Note (short form) - Note Progress Note: 46M s/p C5-C7 posterior decompression & instrumented fusion, and I&D anterior cervical spine wound POD #0. -Admit to ICU post-op. -STRICT DRAIN MANAGEMENT: - LILIAN #1 - Anterior: LIGHT thumb press suction only. Record output as LILIAN #1. - LILIAN #2 - Posterior: FULL squeeze suction. Record output as LILIAN #1. -Pain control: LEASE BUYER; Strictly NO NSAID'S nor STEROIDS. -Mechanical DVT PPx. only: CARMITA's & SCD's; No chemical DVT PPx. -Incentive spirometry. -Maintain hard cervical collar. -NWB B/L UE & LE; pt. to remain in bed overnight. -Diet: Clear liquids only. -Rose Mary-operative Abx: - Ancef 1g IV q8h x 3 post-op. - Vancomycin 1g IV x 1 post-op. -Rosales care. -After d/c from ICU, care per medical hospitalist team. -Will follow. Vitaly Crisostomo MD (Orthopaedic Surgery).
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
[2017-05-10] MEDS: LACTATED RINGERS SOLUTION 1,000 ML IV SCH (21:13)
[2017-05-10] MEDS ORDERED: CEFAZOLIN 1 GM PUSH 1 GM/10 ML DISP.SYRIN IVPUSH SCH (22:00)
[2017-05-10] MEDS ORDERED: MUPIROCIN 2% TOPICAL OINTMENT FOR DECOLONIZATION NS SCH ×2 (22:00)
[2017-05-10] MEDS ORDERED: CHLORHEXIDINE GLUCONATE 4% CLEANSER FOR DECOLONIZATION TP SCH ×2 (22:00)
[2017-05-10] MEDS: CEFAZOLIN 1 GM PUSH 1 GM/10 ML DISP.SYRIN IVPUSH SCH (22:03)
[2017-05-10] MEDS: MUPIROCIN 2% TOPICAL OINTMENT FOR DECOLONIZATION NS SCH (22:09)
[2017-05-10] MEDS: CHLORHEXIDINE GLUCONATE 4% CLEANSER FOR DECOLONIZATION TP SCH (22:10)
[2017-05-11] MEDS ORDERED: VANCOMYCIN 1,000 MG in DEXTROSE 5%-WATER - 250 ML IVPB ONE (02:30)
[2017-05-11] MEDS: ACETAMINOPHEN 1000 MG/100 ML VIAL (NON FORMULARY) IVPB SCH ×3 (04:30→19:38)
[2017-05-11] MEDS: CEFAZOLIN 1 GM PUSH 1 GM/10 ML DISP.SYRIN IVPUSH SCH ×2 (05:58→14:03)
[2017-05-11 06:26] LABS: HEMATOCRIT 35.4 % (35.4-49); HEMOGLOBIN 12.2 GM/dL (11.7-16.9); MCH 28.9 pg (25.7-33.7); MCHC 34.5 g/dl (32.0-35.9); MEAN CELL VOLUME 83.9 fl (80-96); MEAN PLT VOLUME 8.1 fl (7.5-11.1); PLATELET COUNT 351 K/MM3 (134-434); RBC 4.22 M/mm3 (4.00-5.60); RDW 13.5 % (11.9-15.9); WHITE BLOOD COUNT 10.5 K/mm3 (4.0-10.0)
[2017-05-11 06:52] LABS: ANION GAP 9 (8-16); BLOOD UREA NITROGEN 9 mg/dL (7-18); CALCIUM 8.5 mg/dL (8.5-10.1); CHLORIDE 98 mmol/L (98-107); CO2 28 mmol/L (21-32); CREATININE 0.7 mg/dL (0.7-1.3); GLUCOSE,RANDOM 107 mg/dL (74-106); POTASSIUM 4.1 mmol/L (3.5-5.1); SODIUM 135 mmol/L (136-145)
[2017-05-11] MEDS: HYDROmorphone *PCA* 10MG/50ML DISP.SYRIN PCA SCH ×5 (07:19→22:48)
--- NOTE | 2017-05-11 09:40 | PN ---
Progress Note, Physician Chief Complaint: Post-op neck pain. History of Present Illness: POD#1 s/p cervical laminectomy and anterior wound revision under GA with pot-op MEDIA SALES EXECUTIVE. Pt. c/o pain this morning that is not relieved by MEDIA SALES EXECUTIVE. He subsequently required IV Fentanyl overnight which he states did relieve the pain. - Current Medication List Current Medications: Active Medications Acetaminophen (Ofirmev Injection -) 1,000 mg IVPB Q8H [facility] Stop: 05/13/17 19:29 Last Admin: 05/11/17 04:30 Dose: 1,000 mg Chlorhexidine Gluconate (Hibiclens For Decolonization -) 1 applic TP HS [facility] Last Admin: 05/10/17 22:10 Dose: 1 applic Hydromorphone HCl (Dilaudid Evaluator -) 10 mg MEDIA SALES EXECUTIVE MEDIA SALES EXECUTIVE [facility] PRN Reason: Protocol Stop: 05/17/17 19:15 Cefazolin Sodium (Ancef -) 1 gm in 10 mls @ 100 mls/hr IVPUSH Q8H [facility] Stop: 05/11/17 14:05 Last Admin: 05/11/17 05:58 Dose: 100 mls/hr Lactated Ringer's (Lactated Ringers Solution) 1,000 mls @ 100 mls/hr IV ASDIR [facility] Last Admin: 05/10/17 21:13 Dose: 100 mls/hr Mupirocin (Bactroban Ointment (For Decolonization) -) 1 applic NS BID [facility] Stop: 05/15/17 21:59 Last Admin: 05/10/17 22:09 Dose: 1 applic Ondansetron HCl (Zofran Injection) 4 mg IVPUSH Q6H PRN PRN Reason: NAUSEA AND/OR VOMITING - Objective Vital Signs: Vital Signs Temperature 98.1 F 05/11/17 06:00 Pulse Rate 108 H 05/11/17 08:00 Respiratory Rate 22 05/11/17 08:00 Blood Pressure 166/90 05/11/17 08:00 O2 Sat by Pulse Oximetry (%) 100 05/11/17 07:43 Labs: CBC, BMP 05/11/17 06:10 05/11/17 06:10 INR, PTT INR 1.11 (0.82-1.09) 05/10/17 06:30 Assessment/Plan 46 y/o s/p cervical laminectomy and anterior wound revision with post-operative neck pain. Will increase MEDIA SALES EXECUTIVE dose to 0.4mg and have included a 0.4mg breakthrough dose PRN. I have discussed this plan with the pt. as well as RN. Please feel free to contact Anesthesiology with any questions or concerns. Thank you.
--- NOTE | 2017-05-11 10:10 | PN ---
Progress Note (short form) - Note Progress Note: PULM/CCM POD#10 s/p removal of c4-c7 with mechanical fusion (05/01/17). POD #7 s/p re-op (05/04/17). POD#1 C5-C7 posterior decompression, instrumented fusion, and I&D of anterior cervical spine wound (05/10/2017) Pt Seen & Examined in the ICU. Pt c/o poorly controlled pain waking him up from him sleep endorsing a preference for Fentyl. ACTIVE MEDS Chlorhexidine Gluconate (Hibiclens For Decolonization -) 1 applic TP HS [facility] Last Admin: 05/10/17 22:10 Dose: 1 applic Hydromorphone HCl (Dilaudid History Faculty Member -) 10 mg ANALOG IC DESIGN ENGINEER ANALOG IC DESIGN ENGINEER [facility] PRN Reason: Protocol Stop: 05/17/17 19:15 Last Admin: 05/11/17 18:46 Dose: 10 mg Lactated Ringer's (Lactated Ringers Solution) 1,000 mls @ 100 mls/hr IV ASDIR [facility] Last Admin: 05/11/17 20:32 Dose: Not Given Mupirocin (Bactroban Ointment (For Decolonization) -) 1 applic NS BID [facility] Stop: 05/15/17 21:59 Last Admin: 05/11/17 12:54 Dose: 1 applic Ondansetron HCl (Zofran Injection) 4 mg IVPUSH Q6H PRN PRN Reason: NAUSEA AND/OR VOMITING V/S Period Temp Pulse Resp BP Sys/Kumari Pulse Ox Last 24 Hr 98.1 F-99.1 F 71-108 12-30 101-166/43-91 100-100 Intake & Output 05/08/17 05/09/17 05/10/17 05/11/17 23:59 23:59 23:59 23:59 Intake Total 2100 3250 Output Total 2433 2865 Balance -333 385 Weight 77.111 kg 77.111 kg 80.7 kg GEN: well nourished young man, CA+OX3 HEENT: Cervical collar in place. Ant & post LILIAN to bulb sxn draining bloody fluid. No swelling noted. Dressing clean and dry PULM: CTAB CV: nml S1 S2, RR, unable to appreciate any G/R/M ABD: hypo-active BS, S/S N/T N/D X4Q EXT: + Pulses, [id number], (-) edema NEURO: Residual Numbness & tingling in LUE and LLE CBC, BMP 05/11/17 06:10 05/11/17 06:10 MICRO 05/09/17 16:23 Blood - Peripheral Venous Blood Culture - Preliminary NO GROWTH OBTAINED AFTER 48 HOURS, INCUBATION TO CONTINUE FOR 3 DAYS. 05/09/17 16:23 Blood - Peripheral Venous Blood Culture - Preliminary NO GROWTH OBTAINED AFTER 48 HOURS, INCUBATION TO CONTINUE FOR 3 DAYS. CXR 05/10: A single view reveals a weak inspiratory effort with prominent mediastinum, sharp angles, intact bones and soft tissues and lower cervical spine fusion. Correlation recommended Impression : No acute pathology. Weak inspiratory effort. Previous cervical spine fusion. ASSESS: 46 y/o man, POD#1, s/p C5-C7 posterior decompression w/ instrumented fusion, and I&D of recent surgical anterior cervical spinal wound. PLAN: -HOB > 30 -CPT -IS -Maintian cervical collar a/p -APAP -Adjust ANALOG IC DESIGN ENGINEER for better pain control -Fent pushes for breakthrough pain -Finish Post-Op Ancef Regimen -I's & O's -Monitor e-lytes -Clear Liquid Diet -SCDs (no chemical prophylaxis 72 hour after surgery) -Transfer to Med Surg DGL, ACNP- PULM/[facility] [id number] Critical Care Total Critical Care Time (in minutes): 39 Critical Care Statement: The care of this patient involved high complexity decision making to prevent further life threatening deterioration of the patient 's condition and/or to evaluate & treat vital organ system(s) failure or risk of failure.
[2017-05-11] MEDS: LACTATED RINGERS SOLUTION 1,000 ML IV SCH ×3 (11:15→22:47)
[2017-05-11] MEDS: MUPIROCIN 2% TOPICAL OINTMENT FOR DECOLONIZATION NS SCH ×2 (12:54→22:47)
--- NOTE | 2017-05-11 13:38 | PN ---
Teaching Attending Note Name of Resident: Cuba Pelletier ATTENDING PHYSICIAN STATEMENT I saw and evaluated the patient. I reviewed the resident's note and discussed the case with the resident. I agree with the resident's findings and plan as documented. SUBJECTIVE: seen at 8:30 am No fever or chills , cont to have back pain . numbness and weakness in LUE and LLE is still the same no fever or chills . no difficulty swallowing or odynophagia or chocking sensatio or SOB OBJECTIVE: NAD , no complaints of L CV: RRR Lungs: CTAB ext: no edema ,or erythema EENT: neck collar removes, a bandage on anterior neck and one on posteriors side with LILIAN drain under each bandage . TTP Neuro: EOMI, no facial droop. Strength : RUE: shoulder shrug ( no attempt due to pain). shoulder abduction 2/5 ( due to pain) , biceps /triceps 5/5 . hand therapist rrt 5/5 LUE: shoulder shrug 1/5, shoulder abduction 2/5, shoulder flexion 2/5 , bicpes / triceps 4/5 , hand therapist rrt weak. RLE: Hip flexion 4/5, Knee flexion /extension 4/5 . ankle dorsiflexion /plantar flexion 5/5 LLE: Hip flexion 3/5, Knee flexion /extension 3-4/5 . ankle dorsiflexion 2/5 , plantar flexion 3/5 sensation to light touch, absent over LUE, and decreased over LLE . nl over RUE and RLE reflexes : 3+ L knee jerk, 1+ L biceps. 2+ R knee jerk and Biceps ASSESSMENT AND PLAN: 46 y/o male with/o recent s/p C5-C7 posterior decompression & instrumented fusion who presented with neck pain and swelling 1- Fluid collection in neck:s/p I&D anterior cervical spine wound POD #1. - NO chemical DVT px - LILIAN drains - dilaudid FRAME HAND increased - cont IVF - received vanco , and currently on ancef for 3 doses post op. - d/w pt risk of infection with lewis, decision to remove - ICU care - changed to puree liquid - monior for fever . - mild leukocytosis liekly due to stres reaction
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
[2017-05-11] MEDS: CHLORHEXIDINE GLUCONATE 4% CLEANSER FOR DECOLONIZATION TP SCH (22:47)
--- NOTE | 2017-05-12 00:02 | PN ---
Progress Note (short form) - Note Progress Note: 46M doing well s/p C5-C7 posterior decompression & instrumented fusion, and I&D anterior cervical spine wound POD #1. (+) Posterior neck pain. (+) LUE, R thigh, & L foot paraesthesias. (-) Current headaches, chest pain, shortness of breath, vomiting, chills, or sweats. (+) Intermittent nausea. (+) Voiding; (+) Flatus; (-) BM. All labs & vitals reviewed. PE: AAO x 3, NAD. Anterior Cervical Spine: Supple, soft. Dressing C/D/I. Drain intact & in place; scant drainage. Posterior Cervical Spine: Supple, soft. Dressing w/(+) dry sanguinous drainage. Drain intact & in place; (+) sanguinous drainage. B/L UE M: All muscles supplying shoulders, elbow, wrists, & hands intact. Strength assessment limited by functional weakness d/t neuropathic pain. LUE S: C5-T1 1/2. RUE S: C5-T1 2/2. B/L LE M: All muscles supplying hips, knees, ankles, hindfeet, midfeet, forefeet intact. RLE S: L2 & L3 1/2; L4-S1 2/2. LLE S: L2-L5 2/2; S1 & all toes, 1/2. B/L UE & LE V: Normal arterial supply and venous drainage. 46M s/p C5-C7 posterior decompression & instrumented fusion, and I&D anterior cervical spine wound POD #1. -Pain control; Strictly NO NSAID'S nor STEROIDS. -STRICT DRAIN MANAGEMENT: - LILIAN #1 - Anterior: LIGHT thumb press suction only. Record output as LILIAN #1. - LILIAN #2 - Posterior: FULL squeeze suction. Record output as LILIAN #2. -Mechanical DVT PPx. only: CARMITA's & SCD's; No chemical DVT PPx. -Incentive spirometry. -Maintain hard cervical collar. -WBAT B/L UE & LE; no heavy lifting. -Puree diet. -Care per ICU team. -After d/c from ICU, care per medical hospitalist team. -Will follow. Vitaly Crisostomo MD (Orthopaedic Surgery).
[2017-05-12] MEDS: HYDROmorphone *PCA* 10MG/50ML DISP.SYRIN PCA SCH ×6 (00:14→22:31)
[2017-05-12 06:40] LABS: BASO % 0.5 % (0-2.0); EOS % 1.3 % (0-4.5); HEMATOCRIT 32.6 % (35.4-49); HEMOGLOBIN 11.1 GM/dL (11.7-16.9); LYMPH % 20.1 % (8-40); MCH 28.8 pg (25.7-33.7); MCHC 34.1 g/dl (32.0-35.9); MEAN CELL VOLUME 84.3 fl (80-96); MEAN PLT VOLUME 7.8 fl (7.5-11.1); MONO % 9.9 % (3.8-10.2); NEUT % 68.2 % (42.8-82.8); PLATELET COUNT 325 K/MM3 (134-434); RBC 3.87 M/mm3 (4.00-5.60); WHITE BLOOD COUNT 12.1 K/mm3 (4.0-10.0)
[2017-05-12 07:05] LABS: ANION GAP 8 (8-16); BLOOD UREA NITROGEN 6 mg/dL (7-18); CALCIUM 8.9 mg/dL (8.5-10.1); CHLORIDE 97 mmol/L (98-107); CO2 30 mmol/L (21-32); CREATININE 0.6 mg/dL (0.7-1.3); GLUCOSE,RANDOM 102 mg/dL (74-106); POTASSIUM 3.7 mmol/L (3.5-5.1); SODIUM 135 mmol/L (136-145)
--- NOTE | 2017-05-12 08:27 | PN ---
Progress Note (short form) - Note Progress Note: PULM/CCM POD#11 s/p removal of c4-c7 with mechanical fusion (05/01/17). POD #8 s/p re-op (05/04/17). POD#2 C5-C7 posterior decompression, instrumented fusion, and I&D of anterior cervical spine wound (05/10/2017) Pt Seen & Examined in the ICU. Pt continues c/o poorly controlled pain despite doubling Dilaudid EMERGENCY SERVICES DISPATCHER yesterday, still no BM. Active Medications Chlorhexidine Gluconate (Hibiclens For Decolonization -) 1 applic TP HS [facility] Last Admin: 05/11/17 22:47 Dose: 1 applic Hydromorphone HCl (Dilaudid Repairer Typewriter -) 10 mg EMERGENCY SERVICES DISPATCHER EMERGENCY SERVICES DISPATCHER GA PRN Reason: Protocol Stop: 05/17/17 19:15 Last Admin: 05/12/17 06:01 Dose: 10 mg Lactated Ringer's (Lactated Ringers Solution) 1,000 mls @ 100 mls/hr IV ASDIR [facility] Last Admin: 05/11/17 22:47 Dose: 100 mls/hr Mupirocin (Bactroban Ointment (For Decolonization) -) 1 applic NS BID [facility] Stop: 05/15/17 21:59 Last Admin: 05/11/17 22:47 Dose: 1 applic Ondansetron HCl (Zofran Injection) 4 mg IVPUSH Q6H PRN PRN Reason: NAUSEA AND/OR VOMITING Vital Signs Period Temp Pulse Resp BP Sys/Kumari Pulse Ox Last 24 Hr 98.5 F-99.6 F 80-96 14-30 101-167/43-103 100 Intake & Output 05/09/17 05/10/17 05/11/17 05/12/17 23:59 23:59 23:59 23:59 Intake Total 2100 3250 1450 Output Total 2433 2865 960 Balance -333 385 490 Weight 77.111 kg 77.111 kg 80.7 kg 80.7 kg GEN: well nourished young man, CA+OX3 HEENT: Cervical collar in place. Ant LILIAN to bulb sxn scanty dry blood drainage / posterior LILIAN to bulb sxn draining scanty bloody fluid. No swelling noted. Dressing clean and dry PULM: CTAB CV: nml S1 S2, RR, unable to appreciate any G/R/M ABD: hypo-active BS, S/S N/T N/D X4Q EXT: + Pulses, WWPX4, (-) edema NEURO: Residual weakness, Numbness & tingling in LUE and LLE (NEURO Sx aware) CBC, BMP 05/12/17 06:15 05/12/17 06:15 Microbiology 05/09/17 16:23 Blood - Peripheral Venous Blood Culture - Preliminary NO GROWTH OBTAINED AFTER 48 HOURS, INCUBATION TO CONTINUE FOR 3 DAYS. 05/09/17 16:23 Blood - Peripheral Venous Blood Culture - Preliminary NO GROWTH OBTAINED AFTER 48 HOURS, INCUBATION TO CONTINUE FOR 3 DAYS. CXR 05/10: A single view reveals a weak inspiratory effort with prominent mediastinum, sharp angles, intact bones and soft tissues and lower cervical spine fusion. Correlation recommended Impression : No acute pathology. Weak inspiratory effort. Previous cervical spine fusion. ASSESS: This is a 46 y/o man, POD#2, s/p C5-C7 posterior decompression w/ instrumented fusion, and I&D of recent surgical anterior cervical spinal wound. PLAN: -HOB > 30 -CPT -IS -Maintian cervical collar a/p -APAP -Adjust EMERGENCY SERVICES DISPATCHER for better pain control -Fent pushes for breakthrough pain -I's & O's -Monitor e-lytes -Mech Soft Diet -Advance BR -SCDs (no chemical prophylaxis 72 hour after surgery) -Transfer to Med Surg -NEURO Sx to Follow DGL, ACNP- PULM/[facility] [id number]
[2017-05-12] MEDS ORDERED: FLU VACCINE QUAD 60 MCG/0.5 ML (MDV 17-18) IM ONE (08:35)
[2017-05-12] MEDS ORDERED: BISACODYL 10 MG SUPP.RECT PR ONE (08:38)
[2017-05-12] MEDS ORDERED: HYDROmorphone *PCA* 10MG/50ML DISP.SYRIN PCA SCH (10:33)
[2017-05-12] MEDS ORDERED: ONDANSETRON 4 MG/2 ML VIAL IVPUSH PRN (10:33)
[2017-05-12] MEDS ORDERED: ACETAMINOPHEN/CAFFEINE/BUTALBITAL 1 TAB PO PRN (12:26)
[2017-05-12] MEDS ORDERED: ACETAMINOPHEN 1000 MG/100 ML VIAL (NON FORMULARY) IVPB ONE (12:26)
--- NOTE | 2017-05-12 12:29 | PN ---
Progress Note (short form) - Note Progress Note: Subjective: no fever or chills , has severe pain in posterior neck . has migraine . numbness on r lateral thigh Objective: Vital Signs: Last Vital Signs Temp Pulse Resp BP Pulse Ox 98.5 F 89 15 152/91 99 05/12/17 09:32 05/12/17 09:32 05/12/17 09:32 05/12/17 09:32 05/12/17 09:00 Laboratory Results - last 24 hr 05/12/17 05/12/17 06:15 06:15 WBC 12.1 H RBC 3.87 L Hgb 11.1 L Hct 32.6 L MCV 84.3 MCH 28.8 MCHC 34.1 RDW 14.0 Plt Count 325 MPV 7.8 Neutrophils % 68.2 D Lymphocytes % 20.1 D Monocytes % 9.9 Eosinophils % 1.3 Basophils % 0.5 Sodium 135 L Potassium 3.7 Chloride 97 L Carbon Dioxide 30 Anion Gap 8 BUN 6 L D Creatinine 0.6 L Random Glucose 102 Calcium 8.9 Physical Exam: mild distress , no complaints of L CV: RRR Lungs: CTAB Ext: no edema ,or erythema EENT: neck collar removes, a bandage on anterior neck and one on posteriors side. Anterior LILIAN drain with 2 cc of black fluid. posterior LILIAN with 25 cc of serosanguinous fluid Neuro: EOMI, no facial droop. Strength : RUE: shoulder shrug 3/5. shoulder abduction 4/5 , biceps /triceps 5/5 . hand financial services sales representative 5/5 LUE: shoulder shrug 2/5, shoulder abduction 2/5, shoulder flexion 2/5 , bicpes / triceps 3/5 , hand financial services sales representative weak. RLE: refuse to lift hip and bend knee due to pain in back . ankle dorsiflexion /plantar flexion 5/5 LLE: refuse to lift hip and bend knee due to pain in back. ankle dorsiflexion 2/ 5 , plantar flexion 3/5 sensation to light touch, absent over LUE, and decreased over LLE . absent on Lateral R thigh reflexes : 2+ L knee jerk, 2+ L biceps. 2+ R knee jerk and Biceps ASSESSMENT AND PLAN: 46 y/o male with/o recent s/p C5-C7 posterior decompression & instrumented fusion who presented with neck pain and swelling 1- CSF leak with Fluid collection in neck:s/p I&D POD #2. - cont to be in severe pain . - cont DRIVER ENGINEER at 0.4 mg q 6 min . and add 0.1 mg continuous infusion . - Anesthesia will evaluate but agree with plan - give IV tylenol for migraine - give fioricet - monitor drains - finished post op abx. No more per Dr. Crisostomo - cont current diet - monitor mild leukocytosis - SCds case was d/w Dr. Hirsch Visit type - Emergency Visit Emergency Visit: Yes ED Registration Date: 05/09/17 Care time: The patient presented to the Emergency Department on the above date and was hospitalized for further evaluation of their emergent condition. - New Patient This patient is new to me today: No - Critical Care Critical Care patient: No
--- NOTE | 2017-05-12 12:37 | PN ---
Progress Note (short form) - Note Progress Note: Patient seen and examined with Dr. Ridley. He continues to have some headaches and Left upper extremity radicular pain as well as paresthesias. He also has Right anterior/lateral thigh numbness. These symptoms are consistent with the surgery and positioning as well as mild CSF diversion. Patient does not consume caffeine, although it was explained to him that this may help with some of the headaches that may be associated with intracranial hypotension. We will consider a trial of Fioricet and increase of his FINISHER DENTURE to include a basal rate. IV Tylenol was working well for his headaches and should be continued. Anterior LILIAN (#1) is on thumb suction and has minimal output. The bulb interior contains dark flecks which is to be expected with the surgicel guaze (oxidized cellulose) that was used in his surgery. Posterior LILIAN (#2) is on full suction and put out 60 cc of reddish fluid over the past 24 hours Meticulous management of the drains on this current regimen of thumb suction in the front and full bulb suction in the back will be important. If the fluid output greatly increases, the wounds swell/drain, the headaches increase and do not respond to IV Tylenol or a new Neurological deficit develops, Dr. Crisostomo and myself should be notified. The patient is aware that I will not be physically present for several days starting tomorrow and that I will be coordinating his care with Dr. Crisostomo and following the drainage outputs. In the interim, pain control and Physical Therapy will be important for his recovery.
--- NOTE | 2017-05-12 13:55 | PN ---
Progress Note, Physician Chief Complaint: Pt has complaints of pain, despite being on BEHAVIORAL MODIFICATION ASSISTANT - Current Medication List Current Medications: Active Medications Acetaminophen/Butalbital/Caffeine (Fioricet -) 1 tablet PO Q6H PRN PRN Reason: HEADACHE Chlorhexidine Gluconate (Hibiclens For Decolonization -) 1 applic TP HS GA Docusate Sodium (Colace -) 100 mg PO TID GA Hydromorphone HCl (Dilaudid Patch Press Operator -) 10 mg BEHAVIORAL MODIFICATION ASSISTANT BEHAVIORAL MODIFICATION ASSISTANT GA PRN Reason: Protocol Stop: 05/17/17 19:15 Last Admin: 05/12/17 12:58 Dose: Not Given Lactated Ringer's (Lactated Ringers Solution) 1,000 mls @ 100 mls/hr IV ASDIR GA Last Admin: 05/11/17 22:47 Dose: 100 mls/hr Mupirocin (Bactroban Ointment (For Decolonization) -) 1 applic NS BID [facility] Stop: 05/15/17 21:59 Ondansetron HCl (Zofran Injection) 4 mg IVPUSH Q6H PRN PRN Reason: NAUSEA AND/OR VOMITING Senna (Senna -) 2 tab PO HS [facility] - Objective Vital Signs: Vital Signs Temperature 98.5 F 05/12/17 09:32 Pulse Rate 82 05/12/17 12:58 Respiratory Rate 16 05/12/17 12:58 Blood Pressure 148/86 05/12/17 12:58 O2 Sat by Pulse Oximetry (%) 99 05/12/17 09:00 Constitutional: Yes: Well Nourished, Mild Distress Eyes: Yes: WNL HENT: Yes: WNL Neck: Yes: WNL Cardiovascular: Yes: WNL Respiratory: Yes: WNL Labs: CBC, BMP 05/12/17 06:15 05/12/17 06:15 INR, PTT INR 1.11 (0.82-1.09) 05/10/17 06:30 Assessment/Plan Spoke with supervisor lump room: agreed with her plan to adjust BEHAVIORAL MODIFICATION ASSISTANT to include a basal rate of 0.1mg/hr dilaudid.
--- NOTE | 2017-05-12 14:55 | PN ---
Progress Note (short form) - Note Progress Note: 46M doing well s/p C5-C7 posterior decompression & instrumented fusion, and I&D anterior cervical spine wound POD #2. (+) Posterior neck pain. (+) LUE, R thigh, & L foot paraesthesias unchanged. (+) Headaches. (-) Current chest pain, shortness of breath, vomiting, chills, or sweats. (+) Intermittent nausea. (+) Voiding; (+) Flatus; (+) BM. All labs & vitals reviewed. PE: AAO x 3, NAD. Anterior Cervical Spine: Supple, soft. Dressing C/D/I. Drain intact & in place; scant drainage. Posterior Cervical Spine: Supple, soft. Dressing w/(+) dry sanguinous drainage. Drain intact & in place; (+) 60cc CSF & sanguinous drainage. B/L UE & LE Sensorimotor Exam unchanged. B/L UE M: All muscles supplying shoulders, elbow, wrists, & hands intact. Strength assessment limited by functional weakness d/t neuropathic pain. LUE S: C5-T1 1/2. RUE S: C5-T1 2/2. B/L LE M: All muscles supplying hips, knees, ankles, hindfeet, midfeet, forefeet intact. RLE S: L2 & L3 1/2; L4-S1 2/2. LLE S: L2-L5 2/2; S1 & all toes, 1/2. B/L UE & LE V: Normal arterial supply and venous drainage. 46M s/p C5-C7 posterior decompression & instrumented fusion, and I&D anterior cervical spine wound POD #2. -Pain control; Strictly NO NSAID'S nor STEROIDS; Tylenol 1g PO q8h standing; Fioricet PO q12h PRN; STONE HAND + Dilaudid 1g SC q4h PRN (breakthrough); Neurontin 300mg PO TID standing. -STRICT DRAIN MANAGEMENT: - LILIAN #1 - Anterior: LIGHT thumb press suction only. Record output as LILIAN #1. - LILIAN #2 - Posterior: FULL squeeze suction. Record output as LILIAN #2. -Ancef 1g IV q8h standing while all drains are in. -Mechanical DVT PPx. only: CARMITA's & SCD's; No chemical DVT PPx. -Incentive spirometry. -Maintain hard cervical collar. -WBAT B/L UE & LE; no heavy lifting. -Puree diet. -Care per primary medicine team. -Plan discussed w/Dr. Brandon who is in agreement. -Will follow. Vitaly Crisostomo MD (Orthopaedic Surgery).
[2017-05-12] MEDS: ACETAMINOPHEN/CAFFEINE/BUTALBITAL 1 TAB PO PRN (15:03)
[2017-05-12] MEDS: DOCUSATE SODIUM 100 MG CAPSULE (FP) PO SCH ×2 (15:05→22:42)
[2017-05-12] MEDS: CEFAZOLIN 1 GM PUSH 1 GM/10 ML DISP.SYRIN IVPUSH SCH ×2 (15:08→18:22)
[2017-05-12] MEDS: ACETAMINOPHEN 500 MG TABLET (FP) PO SCH ×2 (15:08→22:43)
[2017-05-12] MEDS: LACTATED RINGERS SOLUTION 1,000 ML IV SCH ×2 (18:35→22:49)
[2017-05-12] MEDS ORDERED: CHLORHEXIDINE GLUCONATE 4% CLEANSER FOR DECOLONIZATION TP SCH (22:00)
[2017-05-12] MEDS ORDERED: MUPIROCIN 2% TOPICAL OINTMENT FOR DECOLONIZATION NS SCH (22:00)
[2017-05-12] MEDS: SENNOSIDES 8.6MG TABLET (FP) PO SCH (22:42)
[2017-05-12] MEDS: GABAPENTIN 300 MG CAPSULE (FP) PO SCH (22:43)
[2017-05-13] MEDS: CEFAZOLIN 1 GM PUSH 1 GM/10 ML DISP.SYRIN IVPUSH SCH ×2 (01:36→12:10)
[2017-05-13] MEDS: HYDROmorphone *PCA* 10MG/50ML DISP.SYRIN PCA SCH ×2 (05:22→15:25)
[2017-05-13] MEDS: GABAPENTIN 300 MG CAPSULE (FP) PO SCH ×3 (05:26→21:35)
[2017-05-13] MEDS: LACTATED RINGERS SOLUTION 1,000 ML IV SCH ×3 (05:26→21:36)
[2017-05-13] MEDS: ACETAMINOPHEN 500 MG TABLET (FP) PO SCH ×3 (05:26→22:00)
[2017-05-13] MEDS: DOCUSATE SODIUM 100 MG CAPSULE (FP) PO SCH ×3 (05:26→23:32)
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
[2017-05-13] MEDS: ACETAMINOPHEN/CAFFEINE/BUTALBITAL 1 TAB PO PRN ×2 (08:42→21:31)
[2017-05-13] MEDS ORDERED: HYDROmorphone HCL CARPU-JECT 1 MG/1 ML DISP.SYRIN IM PRN (09:01)
[2017-05-13] MEDS ORDERED: HYDROmorphone *PCA* 10MG/50ML DISP.SYRIN PCA SCH (09:42)
--- NOTE | 2017-05-13 10:08 | PN ---
Progress Note (short form) - Note Progress Note: Surgery POD#3 46M s/p C5-C7 posterior decompression & instrumented fusion, and I&D anterior cervical spine wound POD #3. Patient seen and examined at bedside c/o left arm radicular pain and paresthesias and b/l anterior thigh pain and tingling. He states that he has been out of bed to use the bathroom with assistance but his pain is significant with any movement, mostly over posterior aspect of neck. He is tolerating a regular diet and has been voiding and having regular BMs. He denies any fever, chills, N/V/D, CP or SOB. He is still having constant headaches and states that he has had blurry vision in his left eye since Saturday evening post op. Am labs pending Vital Signs Temp 98 F 05/13/17 05:40 Pulse 100 H 05/13/17 05:52 Resp 20 05/13/17 05:52 BP 138/81 05/13/17 05:52 Pulse Ox 98 05/12/17 21:00 Intake & Output 05/12/17 05/12/17 05/13/17 11:59 23:59 11:59 Intake Total 1450 1600 1150 Output Total 960 1500 668 Balance 490 100 482 Weight 177 lb 14.609 oz 171 lb 9.6 oz Intake: IV 1200 1200 1100 Lactated Ringers Solution 1200 1200 1100 1,000 ml @ 100 mls/hr IV ASDIR GA Rx#: [id number] IVPB 100 50 Oral 250 300 Output: Drainage 60 0 68 LILIAN #1 ANTERIOR 0 0 0 LILIAN #2 POSTERIOR 60 0 68 Urine 900 1500 600 Rosales 900 Void 1500 600 Other: Voiding Method Urinal Urinal Urinal # Unmeasured Voids Rosales 3 Void 2 Bowel Movement No No Weight Measurement Method Built in Bedscale Chair Scale PE: Patient unable to cooperate with exam 2/2 pain A&Ox3, patient anxious and begins to cry with any movement. Patient able to initiate movement of all extremities although strength not tested. Sensation to light touch grossly intact throughout all extremities. Posterior incision, C/D/I with some dried blood and dermabond-ale insitu. Surrounding tissue, no evidence of tracking erythema or edema. Posterior drain with @ 20cc or SS d/c. Anterior neck with focal edema over right side of incision. incision c/d/i with steri strips. No evidence of d/c or tracking erythema. Anterior j/p drain with dark remnants consistent with surgicell used during the case, < 5cc of clear fluid in drain. incisions redressed with 4x4 and op sites. Drains secured with additional op sites. b/l LE compartments soft, supple and non-tender to palpation, +2 pedal pulses. Problem List - Problems (1) Postoperative CSF leak Assessment/Plan: POD # 3 c-spine revision with posterior and anterior work with anterior edema over right side. Patient on COLOR SPRAYER, however pain still uncontrolled and unable to cooperated with exam. Blurry vision in Left eye or unclear etiology Plan: 1) Opthamology consult appreciated to evaluate blurry vision in left eye. 2) Pain control discussed with Dr Crisostomo and Anesthesia, will adjust COLOR SPRAYER dosing 3) OOB with PT to mobilize all extremities and joints as tolerated, no strenuous activity 4) Continue DVT prophylaxis 5) Will adjust anterior drain to full suction and reassess swelling later this afternoon 6) LILIAN drains x 2 Will remain in and Surgical team will fully manage changes in suction 7) Drain and record J/P drains x 2 EVERY 6 HOURS. record amount even if it is zero. Evaluation and plan discussed with Dr Crisostomo and Dr Brandon. Code(s): G97.82 - [facility] POSTPROC COMPLICATIONS AND DISORDERS OF NERVOUS SYS
[2017-05-13] MEDS: diazePAM 5 MG TABLET PO PRN ×2 (12:08→21:35)
--- NOTE | 2017-05-13 13:29 | PN ---
Progress Note (short form) - Note Progress Note: POD #3. VSS. Pt. awake and alert. Post-op pain improved after adjusting HAT CLEANER over the weekend, but pt. still complaining of significant pain which doesn't allow him to sleep fully. Pt. currently being moved back to ICU for closer observation. Will increase HAT CLEANER basal rate for now. Will follow.
--- NOTE | 2017-05-13 17:11 | PN ---
Progress Note (short form) - Note Progress Note: Surgery I Returned in the afternoon to examine the patients left eye No Snellen chart available for evaluation but patient asked to read words on a binder from @10 feet away while covering each eye Right eye-the patient was able to read the binder without error or mistakes Left eye- the patient was not able to read the words or even correctly identify the letters in the same font and distance Left eye no evidence of trauma, not injected or red, no d/c. EOM are intact with no nystagmus. He has direct and consensual pupil constriction/ PERRLA Peripheral vision on left severely limited compared to right which appears to be WNL Findings discussed with Dr Crisostomo and Aleksandr. Opthamology consult greatly appreciated. Called and left a message for Dr. Bebo Duran for AM consult. Problem List - Problems (1) Postoperative CSF leak Code(s): G97.82 - [facility] POSTPROC COMPLICATIONS AND DISORDERS OF NERVOUS SYS
--- NOTE | 2017-05-13 18:54 | PN ---
Teaching Attending Note Name of Resident: Balbir Chandler ATTENDING PHYSICIAN STATEMENT I saw and evaluated the patient. I reviewed the resident's note and discussed the case with the resident. I agree with the resident's findings and plan as documented. SUBJECTIVE: seen at 12Pm . pain has improved. still has numbness and weakness in LUE. numbness in b/l lateral thighs and L foot. numbness has resolved in L leg . R side is strong and with no sensory problems OBJECTIVE: comfortable in bed. CV: RRR Lungs: CTAB Ext: no edema ,or erythema EENT: neck collar removes, a bandage on anterior neck and one on posteriors side. Anterior LILIAN drain with dark brown fluid ( almost full ) . posterior LILIAN with 20 cc of serosanguinous fluid Neuro: EOMI, no facial droop. Strength : RUE: shoulder shrug 3/5. shoulder abduction 4/5, biceps /triceps 5/5 . hand denture contour wire specialist 5/5 LUE: shoulder shrug 2/5, shoulder abduction 2/5, shoulder flexion 2/5 , bicpes / triceps 3/5, hand denture contour wire specialist weak. RLE: refuse to lift hip and bend knee due to pain in back . ankle dorsiflexion /plantar flexion 5/5 LLE: refuse to lift hip and bend knee due to pain in back. ankle dorsiflexion 2/ 5 , plantar flexion 3/5 sensation to light touch, absent over LUE, and absent over b/l lateral thighs . decreased on L foot , and decreased on L leg reflexes : 3+ L knee jerk, 2+ L biceps. 2+ R knee jerk . 2+ R biceps ASSESSMENT AND PLAN: 46 y/o male with/o recent s/p C5-C7 posterior decompression & instrumented fusion who presented with neck pain and swelling 1- CSF leak with Fluid collection in neck:s/p I&D POD #3. - pain is better controlled. BATTERY FILLER basal rate was increased to 0.2 mg/hr, cont 0.4 mg push q 6 min . - cont tylenol + caffeine - monitor drains in ICU - cont ABx while drains are in - cont current diet - monitor mild leukocytosis - SCds - surgical note about L blurry vision noted, Ophth consult transfer to ICU
--- NOTE | 2017-05-13 19:36 | PN ---
Progress Note (short form) - Note Progress Note: 46M doing well s/p C5-C7 posterior decompression & instrumented fusion, and I&D anterior cervical spine wound POD #3. (+) Posterior neck pain. (+) LUE, B/L thigh, & L foot paraesthesias unchanged. (+) Headaches. (+) Left eye visual disturbance/blurred vision. (-) Current chest pain, shortness of breath, nausea, vomiting, chills, or sweats. (+) Voiding; (+) Flatus; (+) BM. All labs & vitals reviewed. PE: AAO x 3, NAD. Anterior Cervical Spine: Supple, soft. Dressing C/D/I. Drain intact & in place. Posterior Cervical Spine: Supple, soft. Dressing w/(+) dry sanguinous drainage. Drain intact & in place. B/L UE & LE Sensorimotor Exam unchanged. 46M s/p C5-C7 posterior decompression & instrumented fusion, and I&D anterior cervical spine wound POD #3. -Pain control; Strictly NO NSAID'S nor STEROIDS; Tylenol 1g PO q8h standing; Fioricet PO q12h PRN; ENTRY LEVEL MARKETING ASSISTANT; Neurontin 300mg PO TID standing. -STRICT DRAIN MANAGEMENT: - LILIAN #1 - Anterior: LIGHT thumb press suction only. Record output as LILIAN #1. - LILIAN #2 - Posterior: FULL squeeze suction. Record output as LILIAN #2. -Ancef 1g IV q8h standing while all drains are in. -DVT PPx: - Mechanical: CARMITA's & SCD's - Chemical: Aspirin EC 81mg PO BID. -Incentive spirometry. -Maintain hard cervical collar. -WBAT B/L UE & LE; no heavy lifting. -Advance to regular diet. -Care per ICU team; do not downgrade from ICU. -Plan discussed w/Dr. Brandon who is in agreement. -Will follow. Vitaly Crisostomo MD (Orthopaedic Surgery).
[2017-05-13 20:49] LABS: BASO % 0.9 % (0-2.0); EOS % 2.8 % (0-4.5); HEMATOCRIT 37.5 % (35.4-49); HEMOGLOBIN 12.9 GM/dL (11.7-16.9); LYMPH % 25.6 % (8-40); MCH 29.1 pg (25.7-33.7); MCHC 34.5 g/dl (32.0-35.9); MEAN CELL VOLUME 84.3 fl (80-96); MEAN PLT VOLUME 7.4 fl (7.5-11.1); MONO % 5.6 % (3.8-10.2); NEUT % 65.1 % (42.8-82.8); PLATELET COUNT 382 K/MM3 (134-434); RBC 4.44 M/mm3 (4.00-5.60); RDW 13.7 % (11.9-15.9); WHITE BLOOD COUNT 10.1 K/mm3 (4.0-10.0)
[2017-05-13] MEDS: ASPIRIN COATED 81 MG TABLET.EC PO SCH (21:35)
[2017-05-13 21:45] LABS: ANION GAP 7 (8-16); BLOOD UREA NITROGEN 7 mg/dL (7-18); CALCIUM 9.2 mg/dL (8.5-10.1); CHLORIDE 97 mmol/L (98-107); CO2 31 mmol/L (21-32); CREATININE 0.8 mg/dL (0.7-1.3); GLUCOSE,RANDOM 114 mg/dL (74-106); POTASSIUM 3.9 mmol/L (3.5-5.1); SODIUM 135 mmol/L (136-145)
[2017-05-13] MEDS: SENNOSIDES 8.6MG TABLET (FP) PO SCH (23:33)
[2017-05-14] MEDS: CEFAZOLIN 1 GM PUSH 1 GM/10 ML DISP.SYRIN IVPUSH SCH ×3 (02:32→17:41)
[2017-05-14] MEDS: diazePAM 5 MG TABLET PO PRN ×2 (04:46→11:09)
[2017-05-14] MEDS: ACETAMINOPHEN 500 MG TABLET (FP) PO SCH ×3 (04:48→17:33)
[2017-05-14] MEDS: DOCUSATE SODIUM 100 MG CAPSULE (FP) PO SCH ×4 (05:52→22:10)
[2017-05-14] MEDS: GABAPENTIN 300 MG CAPSULE (FP) PO SCH ×3 (06:00→22:10)
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
[2017-05-14 06:19] LABS: BASO % 0.7 % (0-2.0); EOS % 3.5 % (0-4.5); HEMATOCRIT 36.1 % (35.4-49); HEMOGLOBIN 12.4 GM/dL (11.7-16.9); LYMPH % 20.6 % (8-40); MCHC 34.3 g/dl (32.0-35.9); MEAN CELL VOLUME 84.5 fl (80-96); MEAN PLT VOLUME 7.9 fl (7.5-11.1); MONO % 5.4 % (3.8-10.2); NEUT % 69.8 % (42.8-82.8); PLATELET COUNT 382 K/MM3 (134-434); RBC 4.28 M/mm3 (4.00-5.60); RDW 13.8 % (11.9-15.9); WHITE BLOOD COUNT 9.4 K/mm3 (4.0-10.0)
[2017-05-14 06:48] LABS: ALBUMIN 3.2 g/dl (3.4-5.0); ANION GAP 6 (8-16); BILIRUBIN,TOTAL 0.4 mg/dL (0.2-1.0); BLOOD UREA NITROGEN 7 mg/dL (7-18); CALCIUM 8.7 mg/dL (8.5-10.1); CHLORIDE 96 mmol/L (98-107); CO2 31 mmol/L (21-32); CREATININE 0.7 mg/dL (0.7-1.3); GLUCOSE,RANDOM 124 mg/dL (74-106); MAGNESIUM 1.9 mg/dL (1.8-2.4); PHOSPHOROUS 3.7 mg/dL (2.5-4.9); POTASSIUM 4.4 mmol/L (3.5-5.1); SGOT/AST 70 U/L (15-37); SGPT/ALT 84 U/L (12-78); SODIUM 133 mmol/L (136-145)
[2017-05-14 06:49] LABS: ALK PHOS 93 U/L (45-117)
--- NOTE | 2017-05-14 08:29 | PN ---
Progress Note, Physician Chief Complaint: Pt day #4 s/p cervical revision - Current Medication List Current Medications: Active Medications Acetaminophen (Tylenol -) 1,000 mg PO TID [facility] Last Admin: 05/14/17 04:48 Dose: 1,000 mg Acetaminophen/Butalbital/Caffeine (Fioricet -) 1 tablet PO Q12H PRN PRN Reason: HEADACHE Last Admin: 05/13/17 21:31 Dose: 1 tablet Aspirin (Ecotrin -) 81 mg PO BID [facility] Last Admin: 05/13/17 21:35 Dose: 81 mg Diazepam (Valium -) 5 mg PO Q6H PRN PRN Reason: ANXIETY Last Admin: 05/14/17 04:46 Dose: 5 mg Docusate Sodium (Colace -) 100 mg PO TID [facility] Last Admin: 05/14/17 05:52 Dose: Not Given Gabapentin (Neurontin -) 300 mg PO TID [facility] Last Admin: 05/13/17 21:35 Dose: 300 mg Hydromorphone HCl (Dilaudid Deck Supervisor -) 10 mg WOODWORKING CRAFTSMAN WOODWORKING CRAFTSMAN [facility] PRN Reason: Protocol Stop: 05/17/17 09:41 Last Admin: 05/13/17 15:25 Dose: 10 mg Lactated Ringer's (Lactated Ringers Solution) 1,000 mls @ 100 mls/hr IV ASDIR [facility] Last Admin: 05/13/17 21:36 Dose: 100 mls/hr Cefazolin Sodium (Ancef -) 1 gm in 10 mls @ 120 mls/hr IVPUSH Q8H-IV [facility] Last Admin: 05/14/17 02:32 Dose: 120 mls/hr Ondansetron HCl (Zofran Injection) 4 mg IVPUSH Q6H PRN PRN Reason: NAUSEA AND/OR VOMITING Senna (Senna -) 2 tab PO HS [facility] Last Admin: 05/13/17 23:33 Dose: Not Given - Objective Vital Signs: Vital Signs Temperature 98.8 F 05/14/17 06:00 Pulse Rate 87 05/14/17 06:00 Respiratory Rate 20 05/14/17 06:00 Blood Pressure 134/87 05/14/17 06:00 O2 Sat by Pulse Oximetry (%) 98 05/13/17 21:00 Constitutional: Yes: Well Nourished, No Distress, Calm Labs: CBC, BMP 05/14/17 05:40 05/14/17 05:40 INR, PTT INR 1.11 (0.82-1.09) 05/10/17 06:30 Assessment/Plan Basal rate of WOODWORKING CRAFTSMAN was increased to 0.2mg/hr yesterday. Today, patient has much less pain and doing better. Drains seem to be working better today. Continue current care
--- NOTE | 2017-05-14 08:55 | CONSULT ---
Consult Consult Specialty:: ophthalmology - History of Present Illness Chief Complaint: blurry vision left eye for 3-4 days since waking up from most recent procedure - History Source History Provided By: Patient, Medical Record - Past Surgical History Past Surgical History: Yes: Laminectomy - Alcohol/Substance Use Hx Alcohol Use: No - Smoking History Smoking history: Former smoker Have you smoked in the past 12 months: No If you are a former smoker, when did you quit?: 10yrs Home Medications - Allergies Allergies/Adverse Reactions: Allergies Allergy/AdvReac Type Severity Reaction Status Date / Time No Known Drug Allergies Allergy Verified 05/09/17 15:59 - Home Medications Home Medications: Ambulatory Orders Oxycodone HCl 30 mg PO Q8H 05/01/17 Physical Exam Vital Signs: Vital Signs Temperature 98.8 F 05/14/17 06:00 Pulse Rate 80 05/14/17 07:25 Respiratory Rate 19 05/14/17 07:25 Blood Pressure 137/74 05/14/17 07:25 O2 Sat by Pulse Oximetry (%) 98 05/13/17 21:00 Eyes: Yes: Other (vision measures 20/20 in the right eye and worse than 20/200 in the left eye using near card and reading glasses +1.50. No afferent pupil defect was noted, PERRL. the anterior segment was normal. Dilated retinal exam was normal. No hemorrhages, retinal detachment, papilledema or optic nerve changes were noted.) Labs: CBC, BMP 05/14/17 05:40 05/14/17 05:40 Assessment/Plan This patient noted blurry vision in his left eye when he awoke from surgery saturday morning. He has had multiple surgeries withing the past few weeks on his cervical spine. There is no pain or redness with the eye He also complains of a headache (he describes it as a migraine ) and weakness on his left side since the most recent surgery. His visual field appears to have some constriction on the left side but this is difficult to determine because his vision on that side is so blurred. The examination did not reveal any significant findings to the structural integrity of the eye. The only significant finding was the blurry vision and the difficulty with the field of vision with confrontation testing. There were no hemorrhages or acute retinal changes. There was no disc hemorrhages, disc swelling or papilledema. There was no afferent pupil defect that I could see on examination. I discussed the case with the surgical Physician's librarian assistant who relayed my findings to her attending. I gave the patient my contact information and told him to call me in the office or on my cell if he noted and changes for better or worse in his condition
--- NOTE | 2017-05-14 09:15 | PN ---
Physical Exam: SUBJECTIVE: Patient seen and examined The patient is a 46 year old male who is POD 4 s/p a c5-c7 posterior decompression and I&D of the anterior cervical spine admitted to the ICU for monitoring and pain management. The patient was initially transferred to the floor, but was sent back to the ICU per surgery for closer monitoring and management. The patient reports his pain is well controlled with diluadid MOBILE APPLICATION DEVELOPER. He complains of some decreased vision of the left eye and opthomology will evaluate today. Otherwise no acute events overnight. OBJECTIVE: Vital Signs Period Temp Pulse Resp BP Sys/Kumari Pulse Ox Last 24 Hr 98 F-99 F 80-102 18-20 117-160/74-93 98 GENERAL: The patient is awake, alert, and fully oriented, in no acute distress. HEAD: Normal with no signs of trauma. EYES: sclera anicteric, conjunctiva clear. No ptosis. ENT: oropharynx clear without exudates, moist mucous membranes. NECK: Trachea midline, full range of motion, supple. Cervical collar in place. Ant LILIAN to bulb sxn scanty dry blood drainage / posterior LILIAN to bulb sxn draining scanty bloody fluid. No swelling noted. Dressing clean and dry LUNGS: Breath sounds equal, clear to auscultation bilaterally, no wheezes, no crackles, no accessory muscle use. HEART: Regular rate and rhythm, S1, S2 without murmur, rub or gallop. ABDOMEN: Soft, nontender, nondistended, normoactive bowel sounds, no guarding, no rebound, no hepatosplenomegaly, no masses. EXTREMITIES: 2+ pulses, warm, well-perfused, no edema. NEUROLOGICAL: Normal speech, gait not observed. Residual decreased sensation to light touch and weakness in the LUE, and LLE. PSYCH: Normal mood, normal affect. SKIN: Warm, dry, normal turgor, no rashes or lesions noted Laboratory Results - last 24 hr 05/13/17 05/13/17 05/14/17 20:20 20:20 05:40 WBC 10.1 H 9.4 RBC 4.44 4.28 Hgb 12.9 D 12.4 Hct 37.5 D 36.1 MCV 84.3 84.5 MCH 29.1 29.0 MCHC 34.5 34.3 RDW 13.7 13.8 Plt Count 382 382 MPV 7.4 L 7.9 Neutrophils % 65.1 69.8 Lymphocytes % 25.6 D 20.6 Monocytes % 5.6 5.4 Eosinophils % 2.8 D 3.5 Basophils % 0.9 0.7 Sodium 135 L Potassium 3.9 Chloride 97 L Carbon Dioxide 31 Anion Gap 7 L BUN 7 Creatinine 0.8 D Creat Clearance w eGFR Random Glucose 114 H Calcium 9.2 Phosphorus Magnesium Total Bilirubin AST ALT Alkaline Phosphatase Total Protein Albumin 05/14/17 05:40 WBC RBC Hgb Hct MCV MCH MCHC RDW Plt Count MPV Neutrophils % Lymphocytes % Monocytes % Eosinophils % Basophils % Sodium 133 L Potassium 4.4 Chloride 96 L Carbon Dioxide 31 Anion Gap 6 L BUN 7 Creatinine 0.7 Creat Clearance w eGFR > 60 Random Glucose 124 H Calcium 8.7 Phosphorus 3.7 Magnesium 1.9 Total Bilirubin 0.4 AST 70 H D ALT 84 H D Alkaline Phosphatase 93 D Total Protein 7.0 Albumin 3.2 L Active Medications Generic Name Dose Route Start Last Admin Trade Name Freq PRN Reason Stop Dose Admin Acetaminophen 1,000 mg 05/12/17 14:30 05/14/17 04:48 Tylenol - PO 1,000 mg TID GA Administration Acetaminophen/Butalbital/Caffeine 1 tablet 05/12/17 14:28 05/13/17 21:31 Fioricet - PO 1 tablet Q12H PRN Administration HEADACHE Aspirin 81 mg 05/13/17 22:00 05/13/17 21:35 Ecotrin - PO 81 mg BID GA Administration Diazepam 5 mg 05/13/17 11:57 05/14/17 04:46 Valium - PO 5 mg Q6H PRN Administration ANXIETY Docusate Sodium 100 mg 05/12/17 14:00 05/14/17 05:52 Colace - PO Not Given TID GA Gabapentin 300 mg 05/12/17 22:00 05/13/17 21:35 Neurontin - PO 300 mg TID GA Administration Hydromorphone HCl 10 mg 05/13/17 13:30 05/13/17 15:25 Dilaudid Lab Head - MOBILE APPLICATION DEVELOPER 05/17/17 09:41 10 mg MOBILE APPLICATION DEVELOPER GA Administration Protocol Lactated Ringer's 1,000 mls @ 100 mls/hr 05/10/17 20:17 05/13/17 21:36 Lactated Ringers Solution IV 100 mls/hr ASDIR GA Administration Cefazolin Sodium 1 gm in 10 mls @ 120 mls/hr 05/12/17 14:30 05/14/17 02:32 Ancef - IVPUSH 120 mls/hr Q8H-IV GA Administration Ondansetron HCl 4 mg 05/12/17 10:33 Zofran Injection IVPUSH Q6H PRN NAUSEA AND/OR VOMITING Senna 2 tab 05/12/17 22:00 05/13/17 23:33 Senna - PO Not Given HS GA ASSESSMENT/PLAN: The patient is a 46 year old male who is POD 4 s/p a c5-c7 posterior decompression and I&D of the anterior cervical spine admitted to the ICU for monitoring and pain management. S/P I&D of the anterior cervical spine due to hematoma -Patient to remain in the ICU for monitoring. -Drain management per surgical team. -Strict monitoring of drain output. -PT as tolerated. -Elevated head of the bed to 45 degrees. -Continue pain management with dilaudid MOBILE APPLICATION DEVELOPER NEURO Patient is alert and oriented x3. No issues currently. -Will continue to monitor. -Continue valium for anxiety. CV No issues currently. -Will continue to monitor. RESP No issues currently. -Will continue to monitor. GI No Issues currently. Heme No issues currently. -Will continue to monitor h/h Renal No issues currently. -Will continue to monitor bun/creatinine. ID No issues currently. MSK No issues currently FEN/GI -Replete electrolytes PRN, will monitor -Lactate Ringers hydration. DISPO: Continued ICU care. Visit type - Emergency Visit Emergency Visit: No - New Patient This patient is new to me today: Yes Date on this admission: 05/14/17 - Critical Care Critical Care patient: Yes Total Critical Care Time (in minutes): 35 Critical Care Statement: The care of this patient involved high complexity decision making to prevent further life threatening deterioration of the patient 's condition and/or to evaluate & treat vital organ system(s) failure or risk of failure.
[2017-05-14] MEDS: ASPIRIN COATED 81 MG TABLET.EC PO SCH ×2 (09:56→22:39)
[2017-05-14] MEDS: LACTATED RINGERS SOLUTION 1,000 ML IV SCH (10:00)
[2017-05-14] MEDS ORDERED: HYDROmorphone *PCA* 10MG/50ML DISP.SYRIN PCA ONE (10:09)
[2017-05-14] MEDS: HYDROmorphone *PCA* 10MG/50ML DISP.SYRIN PCA SCH (10:10)
--- NOTE | 2017-05-14 11:27 | PN ---
Progress Note (short form) - Note Progress Note: Surgery POD#4 46M s/p C5-C7 posterior decompression & instrumented fusion, and I&D anterior cervical spine wound POD #4. Patient seen and examined at bedside with unchanged symptoms, c/o left arm radicular pain and paresthesias and b/l anterior thigh pain and tingling.. He is tolerating a regular diet and has been voiding and having regular BMs. He denies any fever, chills, N/V/D, CP or SOB. He is still having constant headaches and blurry vision in Left eye. Vital Signs Temp 98.4 F 05/14/17 10:26 Pulse 86 05/14/17 10:26 Resp 20 05/14/17 10:26 BP 116/72 05/14/17 10:26 Pulse Ox 98 05/13/17 21:00 Intake & Output 05/13/17 05/13/17 05/14/17 11:59 23:59 11:59 Intake Total 9910 368 8154 Output Total 668 1474 910 Balance 482 -854 340 Weight 171 lb 9.6 oz 175 lb Intake: IV 8146 717 5926 Lactated Ringers Solution 8826 409 1940 1,000 ml @ 100 mls/hr IV ASDIR GA Rx#: [id number] IVPB 50 50 Oral 120 200 Output: Drainage 68 74 10 LILIAN #1 ANTERIOR 0 50 5 LILIAN #2 POSTERIOR 68 24 5 Urine 600 1400 900 Void 600 1400 900 Other: Voiding Method Urinal Urinal Weight Measurement Method Chair Scale Built in [facility] CBC, BMP 05/14/17 05:40 05/14/17 05:40 PE: A&Ox3, NAD Patient able to initiate movement of all extremities Sensation to light touch grossly intact throughout all extremities. unable to cooperated with exam 2/2 pain. Posterior site dressing with some mild yellow tinged d/c at proximal site, dry and dressing intact. Surrounding tissue, no evidence of tracking erythema or edema. Posterior drain with SS d/c. Anterior neck no evidence of edema or erythema, incision c/d/i with steri strips. No evidence of d/c or tracking erythema. Anterior j/p drain with light pink d/c incisions redressed with 4x4 and op sites. Drains secured with additional op sites. b/l LE compartments soft, supple and non-tender to palpation, +2 pedal pulses. Problem List - Problems (1) Postoperative CSF leak Assessment/Plan: POD # 4 c-spine revision with posterior and anterior work with anterior edema over right side. Pain controlled while at rest but still unable to cooperated with exam. Blurry vision in Left eye of unclear etiology. Plan: 1) will continue to observe left eye, will discuss any changes with opthamology 2) Pain control with MOUNTER 3) OOB with PT to mobilize all extremities and joints as tolerated, no strenuous activity 4) Continue DVT prophylaxis b/l teds, scds and Aspirin BID 5) Will adjust anterior drain to full suction and reassess swelling later this afternoon 6) LILIAN drains x 2 Will remain in and Surgical team will fully manage changes in suction 7) Drain and record J/P drains x 2 EVERY 6 HOURS. record amount even if it is zero. Evaluation and plan discussed with Dr Crisostomo and Dr Brandon. Code(s): G97.82 - OT POSTPROC COMPLICATIONS AND DISORDERS OF NERVOUS SYS
--- NOTE | 2017-05-14 13:01 | PN ---
Teaching Attending Note Name of Resident: Vitaly Stone ATTENDING PHYSICIAN STATEMENT I saw and evaluated the patient. I reviewed the resident's note and discussed the case with the resident. I agree with the resident's findings and plan as documented. SUBJECTIVE: Pt seen and examined in the ICU. Still with persistent pain and left arm weakness/numbness. No shortness of breath or chest pain. OBJECTIVE: Last Vital Signs Temp Pulse Resp BP Pulse Ox 98.4 F 86 20 116/72 98 05/14/17 10:26 05/14/17 10:26 05/14/17 10:05/14/17 10:05/14/17 09:00 Intake & Output 05/11/17 05/12/17 05/13/17 05/14/17 23:59 23:59 23:59 23:59 Intake Total 3250 3050 1770 1250 Output Total 2865 2460 2142 910 Balance 385 590 -372 340 Weight 80.7 kg 80.7 kg 77.836 kg 79.379 kg Gen: NAD at rest Neck: serosanguinous drainage Heart: RRR Lung: decreased breath sounds at the bases Abd: soft, nontender Ext: no edema CBC, BMP 05/14/17 05:40 05/14/17 05:40 Active Medications Acetaminophen (Tylenol -) 1,000 mg PO TID [facility] Last Admin: 05/14/17 11:00 Dose: 1,000 mg Acetaminophen/Butalbital/Caffeine (Fioricet -) 1 tablet PO Q12H PRN PRN Reason: HEADACHE Last Admin: 05/13/17 21:31 Dose: 1 tablet Aspirin (Ecotrin -) 81 mg PO BID [facility] Last Admin: 05/14/17 09:56 Dose: 81 mg Diazepam (Valium -) 5 mg PO Q6H PRN PRN Reason: ANXIETY Last Admin: 05/14/17 11:09 Dose: 5 mg Docusate Sodium (Colace -) 100 mg PO TID [facility] Last Admin: 05/14/17 05:52 Dose: Not Given Gabapentin (Neurontin -) 300 mg PO TID [facility] Last Admin: 05/13/17 21:35 Dose: 300 mg Hydromorphone HCl (Dilaudid Plant Wire Chief -) 10 mg NEUROLOGICAL SURGEON NEUROLOGICAL SURGEON [facility] PRN Reason: Protocol Stop: 05/17/17 09:41 Last Admin: 05/13/17 15:25 Dose: 10 mg Lactated Ringer's (Lactated Ringers Solution) 1,000 mls @ 100 mls/hr IV ASDIR [facility] Last Admin: 05/13/17 21:36 Dose: 100 mls/hr Cefazolin Sodium (Ancef -) 1 gm in 10 mls @ 120 mls/hr IVPUSH Q8H-IV [facility] Last Admin: 05/14/17 09:54 Dose: 120 mls/hr Ondansetron HCl (Zofran Injection) 4 mg IVPUSH Q6H PRN PRN Reason: NAUSEA AND/OR VOMITING Senna (Senna -) 2 tab PO HS [facility] Last Admin: 05/13/17 23:33 Dose: Not Given ASSESSMENT AND PLAN: s/p C5-C6 Posterior Decompression/I&D/Hematoma Evacuation Anterior Cervical Spine - pain control - incentive spirometry - monitor drain output - neuro checks - surgery f/u - empiric antibiotics - PO as tolerated - DVT prophylaxis
[2017-05-14] MEDS: ACETAMINOPHEN/CAFFEINE/BUTALBITAL 1 TAB PO PRN (17:35)
--- NOTE | 2017-05-14 18:20 | PN ---
Teaching Attending Note Name of Resident: Balbir Chandler ATTENDING PHYSICIAN STATEMENT I saw and evaluated the patient. I reviewed the resident's note and discussed the case with the resident. I agree with the resident's findings and plan as documented. SUBJECTIVE: No fever or chills. still complains of severe pain although looks comfortable in bed and watched ambulating in room, and lifting his L arm . cont to have L eye blurry vision. has b/l lateral thigh numbness and numbness on L leg and toes today OBJECTIVE: comfortable in bed. CV: RRR Lungs: CTAB Ext: no edema ,or erythema EENT:, a bandage on anterior neck and one on posteriors side. Anterior and posterior LILIAN drain with serosanguinous fluid Neuro: EOMI, no facial droop. Strength : RUE: shoulder shrug 3/5. shoulder abduction 4/5, biceps /triceps 5/5 . hand utility driver 5/5 LUE: shoulder shrug 2/5, shoulder abduction 2/5, shoulder flexion 2/5 , bicpes / triceps 3/5, hand utility driver weak. RLE: refuse to lift hip and bend knee due to pain in back . ankle dorsiflexion /plantar flexion 5/5 LLE: refuse to lift hip and bend knee due to pain in back. ankle dorsiflexion 2/ 5 , plantar flexion 3/5 sensation to light touch, absent over LUE, and absent over b/l lateral thighs . decreased on L foot , and decreased on L leg reflexes : 2+ L knee jerk, 2+ L biceps. 2+ R knee jerk . 2+ R biceps ASSESSMENT AND PLAN: 46 y/o male with/o recent s/p C5-C7 posterior decompression & instrumented fusion who presented with neck pain and swelling 1- CSF leak with Fluid collection in neck:s/p I&D POD #4. - cont current settings of INDUSTRIAL TECHNOLOGIST : basal rate 0.2 mg/hr, cont 0.4 mg push q 6 min . - cont fioricet and tylenol - monitor drains in ICU - cont ABx while drains are in - mild leukocytosis resolved - SCds - asa started 2- mild transaminitis : ? meds . - monitor closely - if cont to increase might need US of liver - also might need to cut down on tylenol 3- Blurry vision in L eye . - evaluated by ophth but Recs are still pending - consult neuro 4- DVT PX : ASA BID per surgical team
--- NOTE | 2017-05-14 20:14 | PN ---
Progress Note (short form) - Note Progress Note: 46M doing well s/p C5-C7 posterior decompression & instrumented fusion, and I&D anterior cervical spine wound POD #4. Pt. reports no pain from neck to left elbow and from left wrist to finger tips; this is an improvement from his initial presentation. (+) Posterior neck pain, alleviated with IV diazepam. (+) LUE, B/L thigh, & L foot paraesthesias unchanged. (+) Headaches. (+) Left eye visual disturbance/blurred vision. (-) Current chest pain, shortness of breath, nausea, vomiting, or chills. (+) Intermittent sweats. (+) Voiding; (+) Flatus; (+) BM. All labs & vitals reviewed. LFT's elevated. PE: AAO x 3, NAD. Anterior Cervical Spine: Supple, soft. Dressing C/D/I. Drain intact & in place; 20cc CSF + sanguinous drainage/shift. Posterior Cervical Spine: Supple, soft. Dressing C/D/I. Drain intact & in place ; 35cc CSF + sanguinous drainage/shift. B/L UE & LE Sensorimotor Exam unchanged. 46M s/p C5-C7 posterior decompression & instrumented fusion, and I&D anterior cervical spine wound POD #4. -Pain control; Strictly NO NSAID'S nor STEROIDS; CROCHETER HAND; Neurontin 300mg PO TID standing; diazepam for neck pain/muscle spasm (posterior surgical dissection). -Hold all products containing Acetaminophen due to transient rise in LFT's. -STRICT DRAIN MANAGEMENT: - LILIAN #1 - Anterior: LIGHT thumb press suction only. Record output as LILIAN #1. - LILIAN #2 - Posterior: FULL squeeze suction. Record output as LILIAN #2. -Ancef 1g IV q8h standing while all drains are in. -DVT PPx: - Mechanical: CARMITA's & SCD's - Chemical: Aspirin EC 81mg PO BID. -Incentive spirometry. -Maintain hard cervical collar. -WBAT B/L UE & LE; no heavy lifting. -Advance to regular diet. -Care per ICU team; do not downgrade from ICU. -Plan discussed w/Dr. Brandon who is in agreement. -Will follow. Vitaly Crisostomo MD (Orthopaedic Surgery).
[2017-05-14] MEDS: SENNOSIDES 8.6MG TABLET (FP) PO SCH ×2 (22:00→22:11)
[2017-05-15] MEDS: CEFAZOLIN 1 GM PUSH 1 GM/10 ML DISP.SYRIN IVPUSH SCH ×3 (02:10→17:47)
[2017-05-15] MEDS: diazePAM 5 MG TABLET PO PRN ×3 (02:29→19:00)
[2017-05-15 05:46] LABS: BASO % 1.2 % (0-2.0); EOS % 5.5 % (0-4.5); HEMOGLOBIN 11.8 GM/dL (11.7-16.9); MCH 29.2 pg (25.7-33.7); MCHC 34.8 g/dl (32.0-35.9); MEAN CELL VOLUME 83.8 fl (80-96); MEAN PLT VOLUME 7.8 fl (7.5-11.1); MONO % 8.2 % (3.8-10.2); NEUT % 54.1 % (42.8-82.8); PLATELET COUNT 363 K/MM3 (134-434); RBC 4.06 M/mm3 (4.00-5.60); RDW 13.9 % (11.9-15.9); WHITE BLOOD COUNT 7.3 K/mm3 (4.0-10.0)
[2017-05-15 06:06] LABS: CALCIUM 9.2 mg/dL (8.5-10.1); CHLORIDE 100 mmol/L (98-107); POTASSIUM 4.5 mmol/L (3.5-5.1); SODIUM 136 mmol/L (136-145)
[2017-05-15 06:12] LABS: ALK PHOS 88 U/L (45-117); ANION GAP 5 (8-16); BILIRUBIN,TOTAL 0.2 mg/dL (0.2-1.0); BLOOD UREA NITROGEN 9 mg/dL (7-18); CO2 31 mmol/L (21-32); CREATININE 0.6 mg/dL (0.7-1.3); GLUCOSE,RANDOM 93 mg/dL (74-106); SGOT/AST 66 U/L (15-37); SGPT/ALT 91 U/L (12-78); TOT PROT 6.5 g/dl (6.4-8.2)
[2017-05-15] MEDS: DOCUSATE SODIUM 100 MG CAPSULE (FP) PO SCH ×3 (06:12→21:18)
[2017-05-15] MEDS: GABAPENTIN 300 MG CAPSULE (FP) PO SCH ×3 (06:12→21:19)
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
--- NOTE | 2017-05-15 08:24 | PN ---
Teaching Attending Note Name of Resident: Balbir Chandler ATTENDING PHYSICIAN STATEMENT I saw and evaluated the patient. I reviewed the resident's note and discussed the case with the resident. I agree with the resident's findings and plan as documented. SUBJECTIVE: Patient is c/o having neck pain. OBJECTIVE: Vital Signs Temperature 98 F 05/14/17 22:00 Pulse Rate 88 05/15/17 08:00 Respiratory Rate 18 05/15/17 08:00 Blood Pressure 123/71 05/15/17 08:00 O2 Sat by Pulse Oximetry (%) 98 05/14/17 21:00 CBCD WBC 7.3 K/mm3 (4.0-10.0) 05/15/17 05:10 RBC 4.06 M/mm3 (4.00-5.60) 05/15/17 05:10 Hgb 11.8 GM/dL (11.7-16.9) 05/15/17 05:10 Hct 34.0 % (35.4-49) L 05/15/17 05:10 MCV 83.8 fl (80-96) 05/15/17 05:10 MCHC 34.8 g/dl (32.0-35.9) 05/15/17 05:10 RDW 13.9 % (11.9-15.9) 05/15/17 05:10 Plt Count 363 K/MM3 (134-434) 05/15/17 05:10 MPV 7.8 fl (7.5-11.1) 05/15/17 05:10 CMP Sodium 136 mmol/L (136-145) 05/15/17 05:10 Potassium 4.5 mmol/L (3.5-5.1) 05/15/17 05:10 Chloride 100 mmol/L (98-107) 05/15/17 05:10 Carbon Dioxide 31 mmol/L (21-32) 05/15/17 05:10 Anion Gap 5 (8-16) L 05/15/17 05:10 BUN 9 mg/dL (7-18) D 05/15/17 05:10 Creatinine 0.6 mg/dL (0.7-1.3) L 05/15/17 05:10 Creat Clearance w eGFR > 60 (>60) 05/15/17 05:10 Random Glucose 93 mg/dL (74-106) D 05/15/17 05:10 Calcium 9.2 mg/dL (8.5-10.1) 05/15/17 05:10 Total Bilirubin 0.2 mg/dL (0.2-1.0) D 05/15/17 05:10 AST 66 U/L (15-37) H 05/15/17 05:10 ALT 91 U/L (12-78) H 05/15/17 05:10 Alkaline Phosphatase 88 U/L (45-117) 05/15/17 05:10 Total Protein 6.5 g/dl (6.4-8.2) 05/15/17 05:10 Albumin 3.0 g/dl (3.4-5.0) L 05/15/17 05:10 Current Medications Generic Name Dose Route Start Last Admin Trade Name Freq PRN Reason Stop Dose Admin Aspirin 81 mg 05/13/17 22:00 05/14/17 22:39 Ecotrin - PO 81 mg BID GA Administration Diazepam 5 mg 05/13/17 11:57 05/15/17 02:29 Valium - PO 5 mg Q6H PRN Administration ANXIETY Docusate Sodium 100 mg 05/12/17 14:00 05/15/17 06:12 Colace - PO Not Given TID GA Gabapentin 300 mg 05/12/17 22:00 05/15/17 06:12 Neurontin - PO Not Given TID GA Hydromorphone HCl 10 mg 05/13/17 13:30 05/14/17 10:10 Dilaudid Midlevel Provider - FLORAL CLERK 05/17/17 09:41 10 mg FLORAL CLERK GA Administration Protocol Cefazolin Sodium 1 gm in 10 mls @ 120 mls/hr 05/12/17 14:30 05/15/17 02:10 Ancef - IVPUSH 120 mls/hr Q8H-IV GA Administration Ondansetron HCl 4 mg 05/12/17 10:33 Zofran Injection IVPUSH Q6H PRN NAUSEA AND/OR VOMITING Senna 2 tab 05/12/17 22:00 05/14/17 22:00 Senna - PO Not Given HS [facility] Home Medications Medication Instructions Recorded Oxycodone HCl 30 mg PO Q8H 05/01/17 Cervical MRI result on 05/09/2017 reviewed. Impression: Status post post C5-C7 anterior cervical fusion with C6 corpectomy. Extensive prevertebral fluid, likely postoperative. Large right anterior neck collection, extending from the C4 through the C7 levels. It does not communicate with the spinal canal. It follows the signal intensity of simple fluid. Findings are most likely related to large postoperative seroma. Deviation of the trachea to the left. No compression of the trachea. For complete evaluation with CT scan may be of benefit to confirm the density of the fluid. Spondylotic changes as above. PE: lying in bed 45 degrees HOB comfortably. Neck: positive for 2 LILIAN drainage positive with serasangionous fluid, wearing a neck collar CV: RRR Lungs: CTAB Ext: no edema ,or erythema Neuro: EOMI, no facial droop. LUE weaker than RUE. ASSESSMENT AND PLAN: Patient is a 46 y/o male with/o recent s/p C5-C7 posterior decompression & instrumented fusion who presented with neck pain and swelling POD #5 CSF leak with Fluid collection in neck:s/p I&D. s/p 5-C7 Anterior cervical discectomy and fusion and C6 corpectomy on the last admission. Pain control as per surgeon on FLORAL CLERK pump currently for pain control. head of bed elevated to 30-45 degrees as per surgeon, continue incentive spirometry , neuro checks continue. On IV antibiotic as per surgeon , SCds, and aspirin continue as PER SURGEON: STRICT DRAIN MANAGEMENT: - LILIAN #1 - Anterior: LIGHT thumb press suction only. Record output as LILIAN #1. - LILIAN #2 - Posterior: FULL squeeze suction. Record output as LILIAN #2. # acute mild transaminitis : will continue to monitor closely, will discontinue Tylenol for now, if continues to elevate will discontinue Zofran. # Blurry vision in L eye. evaluated by peoplesoft taleo manager, and evaluated with neuro consult. DVT PX : ASA 325mg BID per surgical team
[2017-05-15] MEDS: ASPIRIN COATED 81 MG TABLET.EC PO SCH ×2 (09:31→21:19)
--- NOTE | 2017-05-15 09:56 | PN ---
Physical Exam: SUBJECTIVE: Patient seen and examined. He is complaining of severe migraine that is constant for the past several days. The pain is radiating to the back of his neck. He is also complaining of dizziness when walking and numbness in left upper extremity. He uses DEPUTY SHERIFF BAILIFF pump every 6 min when awake. OBJECTIVE: Vital Signs Period Temp Pulse Resp BP Sys/Kumari Pulse Ox Last 24 Hr 97.2 F-99.1 F 78-98 16-20 105-146/69-86 98-98 GENERAL: The patient is awake, alert, and fully oriented, in no acute distress. HEAD: Normal with no signs of trauma. EYES: extraocular movements intact, sclera anicteric, conjunctiva clear. ENT: Ears normal, nares patent, oropharynx clear without exudates, moist mucous membranes. a bandage on anterior neck and one on posteriors side. Anterior and posterior KALEB drain with serosanguinous fluid. NECK: Trachea midline, full range of motion, supple, neck brace applied, kaleb drains present. LUNGS: Breath sounds equal, clear to auscultation bilaterally, no wheezes, no crackles, no accessory muscle use. HEART: Regular rate and rhythm, S1, S2 without murmur, rub or gallop. ABDOMEN: Soft, nontender, nondistended, normoactive bowel sounds, no guarding, no rebound, no hepatosplenomegaly, no masses. EXTREMITIES: 2+ pulses, warm, no edema. NEUROLOGICAL: Normal speech, no facial asymmetry, motor 4/5 in LUE, 5/5 in RUE, not assessed in LEs-pt refused due to pain, sensation decreased in LUE, and lateral of LE above the knee B/l, normal below the knee gait not observed. PSYCH: Normal mood, normal affect. SKIN: Warm, dry, normal turgor, no rashes. Laboratory Results - last 24 hr 05/15/17 05/15/17 05:10 05:10 WBC 7.3 RBC 4.06 Hgb 11.8 Hct 34.0 L MCV 83.8 MCH 29.2 MCHC 34.8 RDW 13.9 Plt Count 363 MPV 7.8 Neutrophils % 54.1 D Lymphocytes % 31.0 D Monocytes % 8.2 Eosinophils % 5.5 H Basophils % 1.2 Sodium 136 Potassium 4.5 Chloride 100 Carbon Dioxide 31 Anion Gap 5 L BUN 9 D Creatinine 0.6 L Creat Clearance w eGFR > 60 Random Glucose 93 D Calcium 9.2 Phosphorus 4.0 Magnesium 2.0 Total Bilirubin 0.2 D AST 66 H ALT 91 H Alkaline Phosphatase 88 Total Protein 6.5 Albumin 3.0 L Active Medications Generic Name Dose Route Start Last Admin Trade Name Freq PRN Reason Stop Dose Admin Aspirin 81 mg 05/13/17 22:00 05/15/17 09:31 Ecotrin - PO 81 mg BID GA Administration Diazepam 5 mg 05/13/17 11:57 05/15/17 02:29 Valium - PO 5 mg Q6H PRN Administration ANXIETY Docusate Sodium 100 mg 05/12/17 14:00 05/15/17 06:12 Colace - PO Not Given TID GA Gabapentin 300 mg 05/12/17 22:00 05/15/17 06:12 Neurontin - PO Not Given TID GA Hydromorphone HCl 10 mg 05/13/17 13:30 05/14/17 10:10 Dilaudid Java [id number] Lead - DEPUTY SHERIFF BAILIFF 05/17/17 09:41 10 mg DEPUTY SHERIFF BAILIFF GA Administration Protocol Cefazolin Sodium 1 gm in 10 mls @ 120 mls/hr 05/12/17 14:30 05/15/17 09:31 Ancef - IVPUSH 120 mls/hr Q8H-IV GA Administration Ondansetron HCl 4 mg 05/12/17 10:33 Zofran Injection IVPUSH Q6H PRN NAUSEA AND/OR VOMITING Senna 2 tab 05/12/17 22:00 05/14/17 22:00 Senna - PO Not Given HS GA ASSESSMENT/PLAN: The patient is a 46 year old male who is POD 5 s/p a c5-c7 posterior decompression and I&D of the anterior cervical spine admitted to the ICU for monitoring and pain management. S/P I&D of the anterior cervical spine -follow up surgery recommendations, monitoring Q6H, bed elevation at 45%, PT as tolerated -drain management per surgical team, two KALEB drains present, output decreased -Continue pain management with dilaudid DEPUTY SHERIFF BAILIFF, pt requests frequently NEURO Patient is alert and oriented x3 -No new complaints, continue to have severe headache, numbness in upper extr. and decreased sensation in LEs -after discussing with Dr Andressa Andrea cancelled CT head recommended by Dr Suarez. According to orthopedic surg. the pt severe headache is normal after cervical spine surgery and it was recommended that we will increased Valium to 10 mg and keep the pt in ICU for monitoring. -contacted primary team and consulted pain management Dr Aguilar -Continue neuronitin 300 mg TID CV -BP stable, continue to monitor RESP -continue to monitor GI -elevated AST, ALT, probably due to Cafazolin will monitor ID no signs of infection FEN no/no changes/regular diet DVT PPX: SCDs, ASA, no Heparin indicated DISPO: ICU monitoring Problem List - Problems (1) Post-op pain Code(s): G89.18 - OTHER ACUTE POSTPROCEDURAL PAIN (2) Postoperative CSF leak Code(s): G97.82 - OTH POSTPROC COMPLICATIONS AND DISORDERS OF NERVOUS SYS Visit type - Emergency Visit Emergency Visit: Yes ED Registration Date: 05/09/17 Care time: The patient presented to the Emergency Department on the above date and was hospitalized for further evaluation of their emergent condition. - New Patient This patient is new to me today: No - Critical Care Critical Care patient: Yes Total Critical Care Time (in minutes): 40 Critical Care Statement: The care of this patient involved high complexity decision making to prevent further life threatening deterioration of the patient 's condition and/or to evaluate & treat vital organ system(s) failure or risk of failure.
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
--- NOTE | 2017-05-15 11:40 | PN ---
Teaching Attending Note Name of Resident: Caroline Gonzalez ATTENDING PHYSICIAN STATEMENT I saw and evaluated the patient. I reviewed the resident's note and discussed the case with the resident. I agree with the resident's findings and plan as documented. SUBJECTIVE: Pt seen and examined in the ICU. Still with headache, left arm, leg numbness. No fevers or chills. OBJECTIVE: Last Vital Signs Temp Pulse Resp BP Pulse Ox 99.1 F 86 18 123/71 98 05/15/17 09:42 05/15/17 09:42 05/15/17 09:42 05/15/17 08:00 05/15/17 08:39 Intake & Output 05/12/17 05/13/17 05/14/17 05/15/17 23:59 23:59 23:59 23:59 Intake Total 3050 1770 2950 200 Output Total 2460 2142 2895 706 Balance 590 -372 55 -506 Weight 80.7 kg 77.836 kg 79.379 kg 80.8 kg Gen: NAD at rest Heart: RRR Lung: decreased breath sounds at the bases Abd: soft, nontender Ext: no edema Neck: sersanguinous drainage CBC, BMP 05/15/17 05:10 05/15/17 05:10 Active Medications Aspirin (Ecotrin -) 81 mg PO BID [facility] Last Admin: 05/15/17 09:31 Dose: 81 mg Diazepam (Valium -) 5 mg PO Q6H PRN PRN Reason: ANXIETY Last Admin: 05/15/17 02:29 Dose: 5 mg Docusate Sodium (Colace -) 100 mg PO TID [facility] Last Admin: 05/15/17 06:12 Dose: Not Given Gabapentin (Neurontin -) 300 mg PO TID [facility] Last Admin: 05/15/17 06:12 Dose: Not Given Hydromorphone HCl (Dilaudid Video Arcade Manager -) 10 mg OCCASIONAL CAREGIVER OCCASIONAL CAREGIVER GA PRN Reason: Protocol Stop: 05/17/17 09:41 Last Admin: 05/14/17 10:10 Dose: 10 mg Cefazolin Sodium (Ancef -) 1 gm in 10 mls @ 120 mls/hr IVPUSH Q8H-IV [facility] Last Admin: 05/15/17 09:31 Dose: 120 mls/hr Ondansetron HCl (Zofran Injection) 4 mg IVPUSH Q6H PRN PRN Reason: NAUSEA AND/OR VOMITING Senna (Senna -) 2 tab PO HS GA Last Admin: 05/14/17 22:00 Dose: Not Given ASSESSMENT AND PLAN: s/p C5-C6 Posterior Decompression/I&D/Hematoma Evacuation Anterior Cervical Spine Elevated LFTs likely antibiotic related - pain control - incentive spirometry - monitor drain output - neuro checks - surgery f/u - empiric antibiotics per surgery - monitor LFTs - PO as tolerated - DVT prophylaxis - dispo per surgery
[2017-05-15] MEDS: HYDROmorphone *PCA* 10MG/50ML DISP.SYRIN PCA SCH (13:30)
--- NOTE | 2017-05-15 14:46 | PN ---
Progress Note (short form) - Note Progress Note: POD #5. VSS. Pain control improved on current settings. Consider chronic pain management consult. Will continue current WASHATERIA ATTENDANT settings for now.
[2017-05-15] MEDS: SENNOSIDES 8.6MG TABLET (FP) PO SCH (21:18)
[2017-05-16] MEDS: HYDROmorphone *PCA* 10MG/50ML DISP.SYRIN PCA SCH ×2 (01:00→20:37)
[2017-05-16] MEDS: CEFAZOLIN 1 GM PUSH 1 GM/10 ML DISP.SYRIN IVPUSH SCH ×3 (02:31→17:46)
[2017-05-16] MEDS: DOCUSATE SODIUM 100 MG CAPSULE (FP) PO SCH ×4 (05:55→22:21)
[2017-05-16] MEDS: GABAPENTIN 300 MG CAPSULE (FP) PO SCH ×3 (06:03→22:13)
--- NOTE | 2017-05-16 08:27 | PN ---
Physical Exam: SUBJECTIVE: Patient seen and examined The patient is a 46 year old male who is POD 6 s/p a c5-c7 posterior decompression and I&D of the anterior cervical spine admitted to the ICU for monitoring and pain management. Patient reports improvement in his headache with valium but continues to experience them intermittently. Drains are continuing to output fluid. Otherwise no acute events overnight. OBJECTIVE: Vital Signs Period Temp Pulse Resp BP Sys/Kumari Pulse Ox Last 24 Hr 98.5 F-99.1 F 79-129 16-20 105-155/66-102 98-98 GENERAL: The patient is awake, alert, and fully oriented, in no acute distress. HEAD: Normal with no signs of trauma. EYES: sclera anicteric, conjunctiva clear. No ptosis. ENT: oropharynx clear without exudates, moist mucous membranes. NECK: Trachea midline, full range of motion, supple. Cervical collar in place. Ant LILIAN to bulb sxn scanty dry blood drainage / posterior LILIAN to bulb sxn draining scanty bloody fluid. No swelling noted. Dressing clean and dry LUNGS: Breath sounds equal, clear to auscultation bilaterally, no wheezes, no crackles, no accessory muscle use. HEART: Regular rate and rhythm, S1, S2 without murmur, rub or gallop. ABDOMEN: Soft, nontender, nondistended, normoactive bowel sounds, no guarding, no rebound, no hepatosplenomegaly, no masses. EXTREMITIES: 2+ pulses, warm, well-perfused, no edema. NEUROLOGICAL: Normal speech, gait not observed. Residual decreased sensation to light touch in the LUE and LLE. PSYCH: Normal mood, normal affect. SKIN: Warm, dry, normal turgor, no rashes or lesions noted Active Medications Generic Name Dose Route Start Last Admin Trade Name Freq PRN Reason Stop Dose Admin Aspirin 81 mg 05/13/17 22:00 05/15/17 21:19 Ecotrin - PO 81 mg BID GA Administration Diazepam 10 mg 05/15/17 14:46 05/15/17 19:00 Valium - PO 10 mg Q6H PRN Administration ANXIETY Docusate Sodium 100 mg 05/12/17 14:00 05/16/17 05:55 Colace - PO Not Given TID GA Gabapentin 300 mg 05/12/17 22:00 05/16/17 06:03 Neurontin - PO 300 mg TID GA Administration Hydromorphone HCl 10 mg 05/13/17 13:30 05/16/17 01:00 Dilaudid Log Chain Feeder - FAMILY COACH 05/17/17 09:41 10 mg FAMILY COACH GA Administration Protocol Cefazolin Sodium 1 gm in 10 mls @ 120 mls/hr 05/12/17 14:30 05/16/17 02:31 Ancef - IVPUSH 120 mls/hr Q8H-IV GA Administration Ondansetron HCl 4 mg 05/12/17 10:33 Zofran Injection IVPUSH Q6H PRN NAUSEA AND/OR VOMITING Senna 2 tab 05/12/17 22:00 05/15/17 21:18 Senna - PO Not Given HS GA ASSESSMENT/PLAN: The patient is a 46 year old male who is POD 6 s/p a c5-c7 posterior decompression and I&D of the anterior cervical spine admitted to the ICU for monitoring and pain management. S/P I&D of the anterior cervical spine due to hematoma -Patient to remain in the ICU for monitoring. -Drain management per surgical team. -Strict monitoring of drain output. -Patient is to have minimal manipulation of his left upper extremity and lower extremities as this exacerbates his symptoms and delays healing. -Patient to only have sensation testing on physical exam and no strength testing to promote healing. -Elevated head of the bed to 20 degrees. -Continue pain management with dilaudid FAMILY COACH NEURO Patient is alert and oriented x3. No issues currently. -Will continue to monitor. -Continue valium for anxiety and muscle spasm. -Continue gabapentin. CV No issues currently. -Will continue to monitor. RESP No issues currently. -Will continue to monitor. GI No Issues currently. Heme No issues currently. -Will continue to monitor h/h Renal No issues currently. -Will continue to monitor bun/creatinine. ID No issues currently. MSK No issues currently FEN/GI -Replete electrolytes PRN, will monitor DISPO: Continued ICU care. Visit type - Emergency Visit Emergency Visit: No - New Patient This patient is new to me today: No - Critical Care Critical Care patient: Yes Total Critical Care Time (in minutes): 35 Critical Care Statement: The care of this patient involved high complexity decision making to prevent further life threatening deterioration of the patient 's condition and/or to evaluate & treat vital organ system(s) failure or risk of failure.
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
[2017-05-16] MEDS: ASPIRIN COATED 81 MG TABLET.EC PO SCH ×2 (09:31→22:13)
--- NOTE | 2017-05-16 10:02 | PN ---
Progress Note (short form) - Note Progress Note: 46M doing well s/p C5-C7 posterior decompression & instrumented fusion, and I&D anterior cervical spine wound POD #6. (+) Posterior neck pain, alleviated with IV diazepam. (+) LUE, B/L thigh, & L foot paraesthesias unchanged. (+) Headaches. (+) Left eye visual disturbance/blurred vision. (-) Current chest pain, shortness of breath, nausea, vomiting, or chills. (+) Intermittent sweats. (+) Voiding; (+) Flatus; (+) BM. All labs & vitals reviewed. LFT's elevated but AST trending down. PE: AAO x 3, NAD. Anterior Cervical Spine: Supple, soft. Dressing C/D/I. Drain intact & in place; 8cc/overnight; 28cc x 24 hrs. Posterior Cervical Spine: Supple, soft. Dressing C/D/I. Drain intact & in place ; 13cc overnight; 48cc x 24 hrs. B/L UE & LE Sensorimotor Exam grossly unchanged. 46M s/p C5-C7 posterior decompression & instrumented fusion, and I&D anterior cervical spine wound POD #6. -Patient improving; maintain current management plan; do not divert; please call with all questions/concerns. -Refrain from redundant B/L UE & LE motor strength assessments as they trigger B /L UE neuralgic symptoms. -Pain control; Strictly NO NSAID'S nor STEROIDS; HAT COPYIST; Neurontin 300mg PO TID standing; diazepam for neck pain/muscle spasm (posterior surgical dissection). -Hold all products containing Acetaminophen due to transient rise in LFT's. -STRICT DRAIN MANAGEMENT: - LILIAN #1 - Anterior: LIGHT thumb press suction only. Record output as LILIAN #1. - LILIAN #2 - Posterior: FULL squeeze suction. Record output as LILIAN #2. -Ancef 1g IV q8h standing while all drains are in. -DVT PPx: - Mechanical: CARMITA's & SCD's - Chemical: Aspirin EC 81mg PO BID. -Incentive spirometry. -Maintain hard cervical collar. -PWB B/L UE & LE; no heavy lifting. -Hold PT/OT for now. -Regular diet. -Care per ICU team; do not downgrade from ICU. -Plan discussed w/Dr. Brandon who is in agreement. -Will follow. Vitaly Crisostomo MD (Orthopaedic Surgery).
--- NOTE | 2017-05-16 11:50 | PN ---
Progress Note (short form) - Note Progress Note: Post op day#6.Patient stable and has pain score of 4-5/10 on Dilaudid DEPUTY K 9.Will DC DEPUTY K 9 and put patient on PRN pain medication.Also pain consult is called for chronic pain management.P 95,BP136/68 and Spo2 98% RA.No any anesthesia related problem.Patient DC from the anesthesia care.
[2017-05-16] MEDS ORDERED: HYDROmorphone HCL CARPU-JECT 2 MG/1 ML DISP.SYRIN IVPUSH PRN (11:51)
[2017-05-16] MEDS ORDERED: oxyCODONE HCL 5 MG TABLET PO PRN (11:52)
--- NOTE | 2017-05-16 12:23 | PN ---
Teaching Attending Note Name of Resident: Vitaly Stone ATTENDING PHYSICIAN STATEMENT I saw and evaluated the patient. I reviewed the resident's note and discussed the case with the resident. I agree with the resident's findings and plan as documented. SUBJECTIVE: Pt seen and examined in the ICU. Still with headaches, left arm, leg weakness/ numbness. OBJECTIVE: Last Vital Signs Temp Pulse Resp BP Pulse Ox 98.6 F 80 18 136/82 98 05/16/17 10:00 05/16/17 11:58 05/16/17 11:58 05/16/17 11:58 05/16/17 09:00 Intake & Output 05/13/17 05/14/17 05/15/17 05/16/17 23:59 23:59 23:59 23:59 Intake Total 1770 2950 1900 Output Total 2142 2895 1521 1008 Balance -372 55 379 -1008 Weight 77.836 kg 79.379 kg 80.8 kg Gen: NAD at rest Heart: RRR Lung: decreased breath sounds at the bases Abd: soft, nontender Ext: no edema CBC, BMP 05/15/17 05:10 05/15/17 05:10 Hepatic Panel Total Bilirubin 0.2 mg/dL (0.2-1.0) D 05/15/17 05:10 AST 66 U/L (15-37) H 05/15/17 05:10 ALT 91 U/L (12-78) H 05/15/17 05:10 Alkaline Phosphatase 88 U/L (45-117) 05/15/17 05:10 Albumin 3.0 g/dl (3.4-5.0) L 05/15/17 05:10 Active Medications Aspirin (Ecotrin -) 81 mg PO BID [facility] Last Admin: 05/16/17 09:31 Dose: 81 mg Diazepam (Valium -) 10 mg PO Q6H PRN PRN Reason: ANXIETY Last Admin: 05/15/17 19:00 Dose: 10 mg Docusate Sodium (Colace -) 100 mg PO TID [facility] Last Admin: 05/16/17 05:55 Dose: Not Given Gabapentin (Neurontin -) 300 mg PO TID [facility] Last Admin: 05/16/17 06:03 Dose: 300 mg Hydromorphone HCl (Dilaudid Injection -) 1 mg IVPUSH Q4H PRN PRN Reason: PAIN LEVEL 4 - 6 Cefazolin Sodium (Ancef -) 1 gm in 10 mls @ 120 mls/hr IVPUSH Q8H-IV GA Last Admin: 05/16/17 09:32 Dose: 120 mls/hr Ondansetron HCl (Zofran Injection) 4 mg IVPUSH Q6H PRN PRN Reason: NAUSEA AND/OR VOMITING Oxycodone HCl (Roxicodone -) 10 mg PO Q4H PRN PRN Reason: PAIN LEVEL 4 - 6 Senna (Senna -) 2 tab PO HS [facility] Last Admin: 05/15/17 21:18 Dose: Not Given ASSESSMENT AND PLAN: s/p C5-C6 Posterior Decompression/I&D/Hematoma Evacuation Anterior Cervical Spine Elevated LFTs likely antibiotic related - pain control - incentive spirometry - monitor drain output - surgery f/u - empiric antibiotics per surgery - monitor LFTs - PO as tolerated - DVT prophylaxis - dispo per surgery
[2017-05-16 13:08] LABS: BASO % 1.2 % (0-2.0); EOS % 4.6 % (0-4.5); HEMATOCRIT 40.1 % (35.4-49); HEMOGLOBIN 13.2 GM/dL (11.7-16.9); LYMPH % 28.9 % (8-40); MCHC 32.9 g/dl (32.0-35.9); MEAN CELL VOLUME 85.3 fl (80-96); MEAN PLT VOLUME 7.4 fl (7.5-11.1); MONO % 7.3 % (3.8-10.2); PLATELET COUNT 455 K/MM3 (134-434); RBC 4.71 M/mm3 (4.00-5.60); RDW 13.6 % (11.9-15.9)
[2017-05-16 13:34] LABS: ALBUMIN 3.4 g/dl (3.4-5.0); ALK PHOS 100 U/L (45-117); ANION GAP 9 (8-16); BILIRUBIN,TOTAL 0.2 mg/dL (0.2-1.0); BLOOD UREA NITROGEN 13 mg/dL (7-18); CALCIUM 9.4 mg/dL (8.5-10.1); CHLORIDE 96 mmol/L (98-107); CO2 32 mmol/L (21-32); CREATININE 0.8 mg/dL (0.7-1.3); GLUCOSE,RANDOM 142 mg/dL (74-106); MAGNESIUM 2.1 mg/dL (1.8-2.4); PHOSPHOROUS 4.1 mg/dL (2.5-4.9); POTASSIUM 4.4 mmol/L (3.5-5.1); SGOT/AST 67 U/L (15-37); SGPT/ALT 96 U/L (12-78); SODIUM 137 mmol/L (136-145); TOT PROT 7.8 g/dl (6.4-8.2)
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
[2017-05-16] MEDS: diazePAM 5 MG TABLET PO PRN (15:37)
[2017-05-16] MEDS ORDERED: HYDROmorphone HCL CARPU-JECT 2 MG/1 ML DISP.SYRIN IVPUSH ONE (15:47)
--- NOTE | 2017-05-16 15:57 | PN ---
Progress Note (short form) - Note Progress Note: Patient seen and examined for gross vision exam Patient states he still has blurry vision in left eye. PE: Patient asked to read chart from about 10 feet away in addition to peripherial testing and his exam findings were unchanged from my previous exam on 05/13. Will continue to follow closely Problem List - Problems (1) Postoperative CSF leak Code(s): G97.82 - OT POSTPROC COMPLICATIONS AND DISORDERS OF NERVOUS SYS
[2017-05-16] MEDS ORDERED: ONDANSETRON 4 MG/2 ML VIAL IVPUSH ONE (16:06)
[2017-05-16] MEDS ORDERED: ONDANSETRON 4 MG/2 ML VIAL ONE (16:09)
[2017-05-16] MEDS ORDERED: SODIUM CHLORIDE 500 ML IV STA (16:36)
[2017-05-16] MEDS ORDERED: HYDROmorphone *PCA* 10MG/50ML DISP.SYRIN PCA SCH (16:45)
[2017-05-16] MEDS ORDERED: HYDROmorphone *PCA* 10MG/50ML DISP.SYRIN PCA ONE (16:57)
--- NOTE | 2017-05-16 17:04 | PN ---
Progress Note (short form) - Note Progress Note: TROUBLE SHOOTER pump d/c this morning by anaesthesia. PRN pain medications given throughout the day to patient. Patient still in significant pain despite multiple pain medications given at patient and family's request. Call placed to Dr. Crisostomo who wants patient placed back on TROUBLE SHOOTER pump.
--- NOTE | 2017-05-16 18:45 | PN ---
Teaching Attending Note Name of Resident: Balbir Chandler ATTENDING PHYSICIAN STATEMENT I saw and evaluated the patient. I reviewed the resident's note and discussed the case with the resident. I agree with the resident's findings and plan as documented. SUBJECTIVE: Patient is still with headaches, left arm, leg weakness/numbness. OBJECTIVE: Vital Signs Temperature 98.2 F 05/16/17 14:00 Pulse Rate 122 H 05/16/17 17:44 Respiratory Rate 18 05/16/17 17:44 Blood Pressure 130/90 05/16/17 17:44 O2 Sat by Pulse Oximetry (%) 98 05/16/17 09:00 CBCD WBC 9.0 K/mm3 (4.0-10.0) 05/16/17 12:55 RBC 4.71 M/mm3 (4.00-5.60) 05/16/17 12:55 Hgb 13.2 GM/dL (11.7-16.9) D 05/16/17 12:55 Hct 40.1 % (35.4-49) D 05/16/17 12:55 MCV 85.3 fl (80-96) 05/16/17 12:55 MCHC 32.9 g/dl (32.0-35.9) 05/16/17 12:55 RDW 13.6 % (11.9-15.9) 05/16/17 12:55 Plt Count 455 K/MM3 (134-434) H D 05/16/17 12:55 MPV 7.4 fl (7.5-11.1) L 05/16/17 12:55 CMP Sodium 137 mmol/L (136-145) 05/16/17 12:55 Potassium 4.4 mmol/L (3.5-5.1) 05/16/17 12:55 Chloride 96 mmol/L (98-107) L 05/16/17 12:55 Carbon Dioxide 32 mmol/L (21-32) 05/16/17 12:55 Anion Gap 9 (8-16) 05/16/17 12:55 BUN 13 mg/dL (7-18) D 05/16/17 12:55 Creatinine 0.8 mg/dL (0.7-1.3) D 05/16/17 12:55 Creat Clearance w eGFR > 60 (>60) 05/16/17 12:55 Random Glucose 142 mg/dL (74-106) H D 05/16/17 12:55 Calcium 9.4 mg/dL (8.5-10.1) 05/16/17 12:55 Total Bilirubin 0.2 mg/dL (0.2-1.0) 05/16/17 12:55 AST 67 U/L (15-37) H 05/16/17 12:55 ALT 96 U/L (12-78) H 05/16/17 12:55 Alkaline Phosphatase 100 U/L (45-117) 05/16/17 12:55 Total Protein 7.8 g/dl (6.4-8.2) 05/16/17 12:55 Albumin 3.4 g/dl (3.4-5.0) 05/16/17 12:55 Current Medications Generic Name Dose Route Start Last Admin Trade Name Freq PRN Reason Stop Dose Admin Aspirin 81 mg 05/13/17 22:00 05/16/17 09:31 Ecotrin - PO 81 mg BID GA Administration Diazepam 10 mg 05/15/17 14:46 05/16/17 15:37 Valium - PO 10 mg Q6H PRN Administration ANXIETY Docusate Sodium 100 mg 05/12/17 14:00 05/16/17 13:20 Colace - PO 100 mg TID GA Administration Gabapentin 300 mg 05/12/17 22:00 05/16/17 13:20 Neurontin - PO 300 mg TID GA Administration Hydromorphone HCl 0 mg 05/16/17 16:45 05/16/17 17:14 Dilaudid Quality Control Manager - FINISH REPAIRER 05/23/17 16:31 10 mg FINISH REPAIRER GA Administration Protocol Cefazolin Sodium 1 gm in 10 mls @ 120 mls/hr 05/12/17 14:30 05/16/17 17:46 Ancef - IVPUSH 120 mls/hr Q8H-IV GA Administration Ondansetron HCl 4 mg 05/12/17 10:33 Zofran Injection IVPUSH Q6H PRN NAUSEA AND/OR VOMITING Senna 2 tab 05/12/17 22:00 05/15/17 21:18 Senna - PO Not Given HS [facility] Home Medications Medication Instructions Recorded Oxycodone HCl 30 mg PO Q8H 05/01/17 PE: per ortho Cervical MRI result on 05/09/2017 reviewed. Impression: Status post post C5-C7 anterior cervical fusion with C6 corpectomy. Extensive prevertebral fluid, likely postoperative. Large right anterior neck collection, extending from the C4 through the C7 levels. It does not communicate with the spinal canal. It follows the signal intensity of simple fluid. Findings are most likely related to large postoperative seroma. Deviation of the trachea to the left. No compression of the trachea. For complete evaluation with CT scan may be of benefit to confirm the density of the fluid. Spondylotic changes as above. ASSESSMENT AND PLAN: 46 y/o male with/o recent s/p C5-C7 posterior decompression & instrumented fusion who presented with neck pain and swelling POD #6 CSF leak with Fluid collection in neck:s/p I&D. s/p 5-C7 Anterior cervical discectomy and fusion and C6 corpectomy last admission. Pain control as per surgeon on FINISH REPAIRER pump continue as per surgeon. Head of bed elevated to 30-45 degrees as per surgeon, continue incentive spirometry , neuro checks continue. # acute mild transaminitis :improving , discontinued Tylenol for now, if continues to elevate will discontinue Zofran. # Blurry vision in L eye. evaluated by spring former hand , appreciate neuro consult. DVT PX : ASA 325mg BID per surgical team
[2017-05-16] MEDS: SENNOSIDES 8.6MG TABLET (FP) PO SCH ×2 (22:13→22:20)
--- NOTE | 2017-05-16 22:31 | PN ---
Progress Note (short form) - Note Progress Note: ATTENTION ALL CARE PROVIDERS: NO ORDERS FOR HECTOR FRANZ ARE TO BE CHANGED WITHOUT DISCUSSING WITH ME, DR. JASVIR RUIZ. CALL MY CELL PHONE: TO DISCUSS ANY DESIRED CHANGES TO MEDICATIONS OR MANAGEMENT. THIS IS NO LONGER A TEACHING CASE. RESIDENTS ARE NOT TO PRACTICE NEURO/EXTREMITY /MUSCULOSKELETAL ASSESSMENTS ON HECTOR FRANZ. 46M s/p C5-C7 posterior decompression & instrumented fusion, and I&D anterior cervical spine wound POD #6. Eventful day. CINDER BLOCK MASON discontinued without consulting primary surgeon. PO medications administered. Patient violently vomited, compromising cervical repair due to increased intra-thecal pressure with each violent Valsalva maneuver. (+) Headaches persists d/t CSF drainage and posterior cervical spine muscle dissection. This is WELL controlled with diazepam and Dilaudid CINDER BLOCK MASON. (+) LUE, B/L thigh, & B/L foot paraesthesias. (+) Left eye visual disturbance/blurred vision. (-) Current chest pain, shortness of breath, nausea, vomiting, or chills. (+) Intermittent sweats. (+) Voiding; (+) Flatus; (+) BM. All labs & vitals reviewed. PE: AAO x 3, (+) Emotionally distressed due to aggressive handling and lack of ICU team communication with primary surgeon. Neck: Hard cervical collar intact & in place. Anterior Cervical Spine: Supple, soft. Dressing C/D/I. Drain intact & in place. Posterior Cervical Spine: Supple, soft. Dressing C/D/I. Drain intact & in place. B/L UE & LE M: All muscles supplying B/L shoulders, elbows, wrists, hands, hips, knees, ankles, and feet intact. RUE S: C5-T1 2/2. LUE S: C5-T1 0/2. B/L LE S: L2-L5 2/2; S1 1/2; LFCN distribution 1/2. 46M s/p C5-C7 posterior decompression & instrumented fusion, and I&D anterior cervical spine wound POD #6. -Patient improving; maintain current management plan; do not divert; please call with all questions/concerns. -Refrain from redundant B/L UE & LE motor strength assessments as they trigger B /L UE neuralgic symptoms. -Pain control; Strictly NO NSAID'S nor STEROIDS; Neurontin 300mg PO TID standing ; Dilaudid CINDER BLOCK MASON & diazepam for neck pain, muscle spasm (posterior surgical dissection), and headaches. -Hold all products containing Acetaminophen due to transient rise in LFT's. -STRICT DRAIN MANAGEMENT: - LILIAN #1 - Anterior: LIGHT thumb press suction only. Record output as LILIAN #1. - LILIAN #2 - Posterior: FULL squeeze suction. Record output as LILIAN #2. -Ancef 1g IV q8h standing while all drains are in. -DVT PPx: - Mechanical: CARMITA's & SCD's - Chemical: Aspirin EC 81mg PO BID. -Incentive spirometry. -Maintain hard cervical collar. -PWB B/L UE & LE; no heavy lifting. -Hold PT/OT for now. -Regular diet. -Care per ICU team; do not downgrade from ICU. -Plan discussed w/Dr. Brandon who is in agreement. -Will follow. ATTENTION ALL CARE PROVIDERS: NO ORDERS FOR HECTOR FRANZ ARE TO BE CHANGED WITHOUT DISCUSSING WITH ME, DR. JASVIR RUIZ. CALL MY CELL PHONE: TO DISCUSS ANY DESIRED CHANGES TO MEDICATIONS OR MANAGEMENT. THIS IS NO LONGER A TEACHING CASE. RESIDENTS ARE NOT TO PRACTICE NEURO/EXTREMITY /MUSCULOSKELETAL ASSESSMENTS ON HECTOR FRANZ. Vitaly Crisostomo MD (Orthopaedic Surgery).
[2017-05-17] MEDS: CEFAZOLIN 1 GM PUSH 1 GM/10 ML DISP.SYRIN IVPUSH SCH ×3 (02:34→18:00)
[2017-05-17] MEDS: HYDROmorphone *PCA* 10MG/50ML DISP.SYRIN PCA SCH (03:00)
[2017-05-17] MEDS ORDERED: HYDROmorphone *PCA* 10MG/50ML DISP.SYRIN PCA ONE (03:01)
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
[2017-05-17] MEDS: GABAPENTIN 300 MG CAPSULE (FP) PO SCH ×3 (06:20→21:17)
[2017-05-17] MEDS: DOCUSATE SODIUM 100 MG CAPSULE (FP) PO SCH ×3 (06:20→21:17)
[2017-05-17 06:43] LABS: HEMATOCRIT 36.7 % (35.4-49); HEMOGLOBIN 12.5 GM/dL (11.7-16.9); MCHC 34.1 g/dl (32.0-35.9); MEAN CELL VOLUME 84.9 fl (80-96); MEAN PLT VOLUME 7.6 fl (7.5-11.1); PLATELET COUNT 406 K/MM3 (134-434); RBC 4.32 M/mm3 (4.00-5.60); RDW 13.8 % (11.9-15.9); WHITE BLOOD COUNT 8.4 K/mm3 (4.0-10.0)
[2017-05-17 07:24] LABS: ALBUMIN 3.2 g/dl (3.4-5.0); CHLORIDE 98 mmol/L (98-107); POTASSIUM 4.8 mmol/L (3.5-5.1); SODIUM 136 mmol/L (136-145)
[2017-05-17 07:28] LABS: ALK PHOS 88 U/L (45-117); ANION GAP 8 (8-16); BILIRUBIN,TOTAL 0.4 mg/dL (0.2-1.0); BLOOD UREA NITROGEN 14 mg/dL (7-18); CALCIUM 8.8 mg/dL (8.5-10.1); CO2 30 mmol/L (21-32); CREATININE 0.8 mg/dL (0.7-1.3); GLUCOSE,RANDOM 92 mg/dL (74-106); PHOSPHOROUS 4.2 mg/dL (2.5-4.9); SGOT/AST 60 U/L (15-37); SGPT/ALT 87 U/L (12-78); TOT PROT 6.9 g/dl (6.4-8.2)
--- NOTE | 2017-05-17 07:45 | PN ---
Teaching Attending Note Name of Resident: Balbir Chandler ATTENDING PHYSICIAN STATEMENT I saw and evaluated the patient. I reviewed the resident's note and discussed the case with the resident. I agree with the resident's findings and plan as documented. SUBJECTIVE: Patient is feeling better today back on COMMISSIONER OF RELOCATION SERVICES pump. OBJECTIVE: Vital Signs Temperature 98.7 F 05/17/17 06:00 Pulse Rate 98 H 05/17/17 06:00 Respiratory Rate 17 05/17/17 06:00 Blood Pressure 106/71 05/17/17 06:00 O2 Sat by Pulse Oximetry (%) 98 05/16/17 21:00 CBCD WBC 8.4 K/mm3 (4.0-10.0) 05/17/17 06:30 RBC 4.32 M/mm3 (4.00-5.60) 05/17/17 06:30 Hgb 12.5 GM/dL (11.7-16.9) 05/17/17 06:30 Hct 36.7 % (35.4-49) 05/17/17 06:30 MCV 84.9 fl (80-96) 05/17/17 06:30 MCHC 34.1 g/dl (32.0-35.9) 05/17/17 06:30 RDW 13.8 % (11.9-15.9) 05/17/17 06:30 Plt Count 406 K/MM3 (134-434) 05/17/17 06:30 MPV 7.6 fl (7.5-11.1) 05/17/17 06:30 CMP Sodium 137 mmol/L (136-145) 05/16/17 12:55 Potassium 4.4 mmol/L (3.5-5.1) 05/16/17 12:55 Chloride 96 mmol/L (98-107) L 05/16/17 12:55 Carbon Dioxide 32 mmol/L (21-32) 05/16/17 12:55 Anion Gap 9 (8-16) 05/16/17 12:55 BUN 13 mg/dL (7-18) D 05/16/17 12:55 Creatinine 0.8 mg/dL (0.7-1.3) D 05/16/17 12:55 Creat Clearance w eGFR > 60 (>60) 05/16/17 12:55 Random Glucose 142 mg/dL (74-106) H D 05/16/17 12:55 Calcium 9.4 mg/dL (8.5-10.1) 05/16/17 12:55 Total Bilirubin 0.2 mg/dL (0.2-1.0) 05/16/17 12:55 AST 67 U/L (15-37) H 05/16/17 12:55 ALT 96 U/L (12-78) H 05/16/17 12:55 Alkaline Phosphatase 100 U/L (45-117) 05/16/17 12:55 Total Protein 7.8 g/dl (6.4-8.2) 05/16/17 12:55 Albumin 3.4 g/dl (3.4-5.0) 05/16/17 12:55 Current Medications Generic Name Dose Route Start Last Admin Trade Name Freq PRN Reason Stop Dose Admin Aspirin 81 mg 05/13/17 22:00 05/16/17 22:13 Ecotrin - PO 81 mg BID GA Administration Diazepam 10 mg 05/15/17 14:46 05/16/17 15:37 Valium - PO 10 mg Q6H PRN Administration ANXIETY Docusate Sodium 100 mg 05/12/17 14:00 05/17/17 06:20 Colace - PO 100 mg TID GA Administration Gabapentin 300 mg 05/12/17 22:00 05/17/17 06:20 Neurontin - PO 300 mg TID GA Administration Hydromorphone HCl 6 mg 05/17/17 03:15 Dilaudid Clammer - COMMISSIONER OF RELOCATION SERVICES COMMISSIONER OF RELOCATION SERVICES GA Protocol Cefazolin Sodium 1 gm in 10 mls @ 120 mls/hr 05/12/17 14:30 05/17/17 02:34 Ancef - IVPUSH 120 mls/hr Q8H-IV GA Administration Ondansetron HCl 4 mg 05/12/17 10:33 Zofran Injection IVPUSH Q6H PRN NAUSEA AND/OR VOMITING Senna 2 tab 05/12/17 22:00 05/16/17 22:20 Senna - PO Not Given HS [facility] Home Medications Medication Instructions Recorded Oxycodone HCl 30 mg PO Q8H 05/01/17 PE: as per (ortho) Cervical MRI result on 05/09/2017 reviewed. Impression: Status post post C5-C7 anterior cervical fusion with C6 corpectomy. Extensive prevertebral fluid, likely postoperative. Large right anterior neck collection, extending from the C4 through the C7 levels. It does not communicate with the spinal canal. It follows the signal intensity of simple fluid. Findings are most likely related to large postoperative seroma. Deviation of the trachea to the left. No compression of the trachea. For complete evaluation with CT scan may be of benefit to confirm the density of the fluid. Spondylotic changes as above. ASSESSMENT AND PLAN: 46 y/o male with/o recent s/p C5-C7 posterior decompression & instrumented fusion who presented with neck pain and swelling POD #7 s/p CSF leak with Fluid collection in neck: I&D. s/p 5-C7 Anterior cervical discectomy and fusion and C6 corpectomy last admission. Pain control as per surgeon , on COMMISSIONER OF RELOCATION SERVICES pump , further adjustments as per surgeon. Head of bed elevated to 30-45 degrees as per surgeon, continue incentive spirometry , neuro checks continue. # acute mild transaminitis :improving , discontinued Tylenol for now, if continues to elevate will discontinue Zofran but will keep it for now since patient had an episode of nausea and vomiting.. # Blurry vision in L eye. evaluated by sleeve sewer , and by neurologist , No obvious findings. DVT PX : ASA 81mg BID per surgical team
--- NOTE | 2017-05-17 08:41 | PN ---
Physical Exam: SUBJECTIVE: Patient seen and examined The patient is a 46 year old male who is POD 6 s/p a c5-c7 posterior decompression and I&D of the anterior cervical spine admitted to the ICU for monitoring and pain management. Patient was re-started on dilaudid MACHINE OPERATOR FARMWORKER pump due to worsening pain. Discussed with surgery who wishes to defer physical exams to promote healing. Otherwise no acute events overnight. OBJECTIVE: Vital Signs Period Temp Pulse Resp BP Sys/Kumari Pulse Ox Last 24 Hr 98.2 F-98.7 F 78-133 17-21 95-152/63-102 98-98 Physical exam: Deferred per surgical team. Laboratory Results - last 24 hr 05/16/17 05/16/17 05/17/17 12:55 12:55 06:30 WBC 9.0 8.4 RBC 4.71 4.32 Hgb 13.2 D 12.5 Hct 40.1 D 36.7 MCV 85.3 84.9 MCH 28.0 29.0 MCHC 32.9 34.1 RDW 13.6 13.8 Plt Count 455 H D 406 MPV 7.4 L 7.6 Neutrophils % 58.0 Lymphocytes % 28.9 Monocytes % 7.3 Eosinophils % 4.6 H Basophils % 1.2 Sodium 137 Potassium 4.4 Chloride 96 L Carbon Dioxide 32 Anion Gap 9 BUN 13 D Creatinine 0.8 D Creat Clearance w eGFR > 60 Random Glucose 142 H D Calcium 9.4 Phosphorus 4.1 Magnesium 2.1 Total Bilirubin 0.2 AST 67 H ALT 96 H Alkaline Phosphatase 100 Total Protein 7.8 Albumin 3.4 05/17/17 06:30 WBC RBC Hgb Hct MCV MCH MCHC RDW Plt Count MPV Neutrophils % Lymphocytes % Monocytes % Eosinophils % Basophils % Sodium 136 Potassium 4.8 Chloride 98 Carbon Dioxide 30 Anion Gap 8 BUN 14 Creatinine 0.8 Creat Clearance w eGFR > 60 Random Glucose 92 D Calcium 8.8 Phosphorus 4.2 Magnesium 2.0 Total Bilirubin 0.4 D AST 60 H ALT 87 H Alkaline Phosphatase 88 Total Protein 6.9 Albumin 3.2 L Active Medications Generic Name Dose Route Start Last Admin Trade Name Freq PRN Reason Stop Dose Admin Aspirin 81 mg 05/13/17 22:00 05/16/17 22:13 Ecotrin - PO 81 mg BID GA Administration Diazepam 10 mg 05/15/17 14:46 05/16/17 15:37 Valium - PO 10 mg Q6H PRN Administration ANXIETY Docusate Sodium 100 mg 05/12/17 14:00 05/17/17 06:20 Colace - PO 100 mg TID GA Administration Gabapentin 300 mg 05/12/17 22:00 05/17/17 06:20 Neurontin - PO 300 mg TID GA Administration Hydromorphone HCl 6 mg 05/17/17 03:15 Dilaudid Dental Assisting Instructor - MACHINE OPERATOR FARMWORKER MACHINE OPERATOR FARMWORKER GA Protocol Cefazolin Sodium 1 gm in 10 mls @ 120 mls/hr 05/12/17 14:30 05/17/17 02:34 Ancef - IVPUSH 120 mls/hr Q8H-IV GA Administration Ondansetron HCl 4 mg 05/12/17 10:33 Zofran Injection IVPUSH Q6H PRN NAUSEA AND/OR VOMITING Senna 2 tab 05/12/17 22:00 05/16/17 22:20 Senna - PO Not Given HS [facility] ASSESSMENT/PLAN: The patient is a 46 year old male who is POD 6 s/p a c5-c7 posterior decompression and I&D of the anterior cervical spine admitted to the ICU for monitoring and pain management. S/P I&D of the anterior cervical spine due to hematoma -Patient to remain in the ICU for monitoring. -Drain management per surgical team. -Strict monitoring of drain output. -Patient is to have minimal manipulation of his left upper extremity and lower extremities as this exacerbates his symptoms and delays healing. -Patient to only have sensation testing on physical exam and no strength testing to promote healing. -Elevated head of the bed to 20 degrees. -Continue pain management with dilaudid MACHINE OPERATOR FARMWORKER NEURO Patient is alert and oriented x3. No issues currently. -Will continue to monitor. -Continue valium for anxiety and muscle spasm. -Continue gabapentin. CV No issues currently. -Will continue to monitor. RESP No issues currently. -Will continue to monitor. GI No Issues currently. Heme No issues currently. -Will continue to monitor h/h Renal No issues currently. -Will continue to monitor bun/creatinine. ID No issues currently. MSK No issues currently FEN/GI -Replete electrolytes PRN, will monitor DISPO: Continued ICU care.
--- NOTE | 2017-05-17 08:46 | PROC ---
Procedure Note Procedure: Surgery note Dressing change Patient seen at bedside for dressing change, resting comfortably. Anterior incision, well healed with the exception of drain site at right apex, sutured in place. surrounding tissue with no evidence of edema or tracking erythema. Trachea midline. Non-tender to palpation and no signs of collection or fluctuance. Steri strips re-applied Anterior drain in good position, line stripped with scant yellow/pink tinged fluid. Drain on thumb suction and secured in place Posterior site incision C/D/I with ale insitu, surrounding tissue without edema or erythema, no signs of collection or fluctuance, no d/c. area dressed with 4x4 and Op site. Posterior drain in good position, line stripped with minimal SS d/c. Drain on full suction and secured in place. Patient tolerated the procedure well and the C-Collar was re-applied.
--- NOTE | 2017-05-17 09:49 | OP ---
DATE OF OPERATION: 05/10/2017 SURGEON: Vitaly Crisostomo MD CO-SURGEON: Salvatore Brandon MD PREOPERATIVE DIAGNOSIS: Cerebrospinal fluid leak following repair of incidental durotomy, C5-C6. POSTOPERATIVE DIAGNOSIS: Cerebrospinal fluid leak following repair of incidental durotomy, C5-C6. SURGICAL PROCEDURE: 1. C5 to C7 posterior spinal decompression and instrument effusion. 2. Incision and drainage anterior cervical spine wound. POSITION: 1. Prone. 2. Supine. ANESTHESIA: General. endotracheal tube anesthesia. INCISION: 1. Midline longitudinal posterior. 2. Previous anterior incision reutilized. ESTIMATED BLOOD LOSS: 50 mL. INTRAVENOUS FLUIDS: See anesthesia record. SPECIMENS: None. DRAINS: Posterior LILIAN, anterior LILIAN. COMPLICATIONS: None. URINE OUTPUT: See anesthesia/nursing record. BACTERIOLOGY: None. TRANSFUSIONS: None. CLOSURE: 2-0 Vicryl, skin ale posteriorly, 3-0 Biosyn anteriorly. INDICATIONS: The patient is a 46-year-old gentleman who recently underwent a C5 -C6 and C6-C7 ACDF with associated incidental durotomy at C5-C6. He then underwent subsequent removal of hardware, C6 corpectomy, primary repair of C5-C6, durotomy with myofascial patch, and C5 to C7 anterior instrumented spinal fusion with the assistance of Dr. Salvatore Brandon. The patient was seen in both [facility] and Dr. Brandon's outpatient offices yesterday, where he demonstrated swelling of his anterior neck wound, concerning for a possible recurrent CSF leak. He was admitted through the [facility] Emergency Room, where CT scan was negative for high pressure hydrocephalus of the brain. He was then indicated for posterior cervical decompression and fusion in order to supplement the anterior fixation as well as to explore the incidental durotomy from the posterior aspect of the spinal cord. The patient was also indicated for wound exploration anteriorly to facilitate decompression of the fluid collection. Our intention was to place a posterior drain under suction with an anterior drain on partial suction so as to divert any CSF drainage posteriorly and allow the anterior soft tissue structures to heal. The patient was identified in the holding area by his armband. A long discussion was held with the patient in the presence of his family regarding the risks, benefits, and alternatives of the above named procedure. The risks include, but are not limited to: Pain, bleeding, infection, damage to surrounding structures (including nerves, blood vessels, skin, ligaments, tendons, and bone), wound complications, pseudarthrosis, failure of hardware/implants/reduction, need for further surgery, blood clots, myocardial infarction, pulmonary embolism, anesthesia complications, permanent neuralgic pain in the upper or lower extremities, paresthesias in the upper or lower extremities, loss of function, and . Benefits as mentioned above. Alternative include no surgery. All questions were answered. The patient understood and agreed to the procedure. Informed consent was obtained, witnessed, and verified. The patient's anterior and posterior neck were marked. Then, the patient was taken to the operating room after being seen by the anesthesia and nursing staff. OPERATION IN DETAIL: The patient was brought into the operating room, where consent for surgery was again verified with the patient and nursing and anesthesia staff. The patient was then intubated on his hospital stretcher. Neuromonitoring leads and a Rosales catheter were then inserted. The patient was then transverse into a prone position, on gel rolls, with all bony prominences well padded. The upper extremities were placed into safe positions with the shoulders in relative flexion/forward elevation and abduction. The elbows remained flexed to 90 degrees throughout the case. The arms were positioned in soft foam positioners on top of arm boards. The face was secured in a well-padded face mask. The eyes were free as confirmed by the anesthesiologist. The OR table was tilted into 10 degrees of reverse Trendelenberg so as to avoid congestion of the optic vessels. The patient was secured with a safety strap. IV antibiotics were then administered. This included 2 g of IV Ancef and 1 g of IV vancomycin. A time-out was then done led by , the attending surgeon. The operative site was then prepped and draped in a standard sterile fashion. Time- out was again done, and the case began. Fluoroscopy was utilized to accurately and successfully localize the intended region of dissection and surgery. Next, a longitudinal incision was made from C5 to C7 of the posterior cervical spine. Dissection was taken through the skin down to the level of the spinous processes where the paraspinal musculature was stripped off the spinous processes, laminae and lateral masses of the posterior elements of the spine. Next, a Yenni clamp was placed on the spinous process of C5, and a single lateral fluoroscopic image was taken using C-arm to verify our level. It should be noted that C-arm was sterilely draped in position prior to beginning the procedure. Next, a C6 laminectomy was performed with undercutting laminotomies of C5 and C7. We were able to gain full view of the posterior cervical spinal cord and the posterior axilla of the C6 nerve root. We were able to detect our previously placed Nurolon stitch and myofascial patch. There was no active CSF leak, even with a sustained Valsalva maneuver. Next, lateral mass screws were placed bilaterally from C5-C7 in standard fashion utilizing the An technique. Rods were then sized and used to connect the screws on each side. Caps were used to secure the rods. Final tighteners were then utilized to secure the caps. Frequent fluoroscopic checks were utilized to ensure satisfactory hardware placement. Next, bone that had been retrieved during the laminectomy was morselized and placed along the lateral masses, so as to facility spinal fusion. Next, we placed a LILIAN drain deep to the fascia. It should be said that the wounds were copiously irrigated through all the aforementioned steps utilizing a dilute solution of normal saline and hydrogen peroxide. Next, primary closure was performed, loosely tagging the muscle together with No. 1 Vicryl sutures. After that, we secured a watertight closure of the fascia again using No. 1 Vicryl sutures. The wounds were then superficially closed using 2-0 Vicryl as well as ale and Dermabond. A sterile compressive dressing was applied, and the posterior drain was placed on full suction. Next, the patient was transferred onto his back on the hospital stretcher and then transferred once again back to the operating room table in the supine position. Once again all bony prominences were padded. The arms were tucked at the patient's side and rolled-up towels were placed in the palms of the patients hands for protection. Gentle traction was applied to the shoulders using silk tape, which was then secured to the foot of the bed. Next, the anterior cervical spine was prepped and draped in standard sterile fashion. The previous incision was utilized and before doing so, beginning with the removal of the previous running 3-0 Biosyn suture. Next, dissection through the anterior cervical wound yielded a 30-50 mL gush of serosanguinous fluid, which likely contained CSF, as well. The soft tissues in the vicinity of the prior neck dissection contained a filmy web-type, sticky, filmy layer that was copiously irrigated using the same irrigant as before. Next, the previously placed instrumentation was fully exposed, and a Valsalva maneuver was held for 30 seconds with no active extravasation of CSF or any fluid from the anterior decompressive site or into the posterior drain/reservoir. Next, Surgicel was stuffed into the gutters bilaterally to the anterior cervical plate. DuraSeal was then placed over the anterior cervical plate. The wounds were then again copiously irrigated using diluted hydrogen peroxide and saline solution. The wounds were closed using 2-0 Vicryl and 3-0 Biosyn intracuticular stitch in running fashion. A deep anterior cervical LILIAN drain was placed, and the anterior drain was placed on half suction. A sterile compressive dressing was applied. Sponge and needle counts were correct at the end of the case, and I, the attending surgeon , was present and scrubbed throughout the case. The patient was then extubated by the anesthesia staff without incident or complication and was transferred to the recovery room in stable condition having tolerated the procedure well. MD ERIC Ryan/[id number] [email or web address]
[2017-05-17] MEDS: diazePAM 5 MG TABLET PO PRN ×2 (10:07→18:00)
[2017-05-17] MEDS: ASPIRIN COATED 81 MG TABLET.EC PO SCH ×2 (10:07→21:20)
--- NOTE | 2017-05-17 12:37 | PN ---
Progress Note (short form) - Note Progress Note: Patient seen and examined in the ICU. No significant change in exam. Still with headaches, left arm, leg weakness/numbness/paresthesias. No CP or SOB. LFTs mildly down trending OBJECTIVE: Intake & Output 05/14/17 05/15/17 05/16/17 05/17/17 23:59 23:59 23:59 23:59 Intake Total 2950 1900 1030 Output Total 2895 1521 2170 7 Balance 55 379 -1140 -7 Weight 175 lb 178 lb 2.136 oz 178 lb 4 oz Last Vital Signs Temp Pulse Resp BP Pulse Ox 98.6 F 88 17 121/70 98 05/17/17 10:00 05/17/17 12:00 05/17/17 12:00 05/17/17 12:00 05/17/17 09:00 Active Medications Aspirin (Ecotrin -) 81 mg PO BID [facility] Last Admin: 05/17/17 10:07 Dose: 81 mg Diazepam (Valium -) 10 mg PO Q6H PRN PRN Reason: ANXIETY Last Admin: 05/17/17 10:07 Dose: 10 mg Docusate Sodium (Colace -) 100 mg PO TID [facility] Last Admin: 05/17/17 06:20 Dose: 100 mg Gabapentin (Neurontin -) 300 mg PO TID [facility] Last Admin: 05/17/17 06:20 Dose: 300 mg Hydromorphone HCl (Dilaudid Pump Service Supervisor -) 6 mg OPERATIONS RESEARCH DIRECTOR OPERATIONS RESEARCH DIRECTOR GA PRN Reason: Protocol Cefazolin Sodium (Ancef -) 1 gm in 10 mls @ 120 mls/hr IVPUSH Q8H-IV [facility] Last Admin: 05/17/17 10:08 Dose: 120 mls/hr Ondansetron HCl (Zofran Injection) 4 mg IVPUSH Q6H PRN PRN Reason: NAUSEA AND/OR VOMITING Senna (Senna -) 2 tab PO HS [facility] Last Admin: 05/16/17 22:20 Dose: Not Given Gen: NAD at rest Heart: RRR Lung: decreased breath sounds at the bases Abd: soft, nontender Ext: no edema Laboratory Results - last 24 hr 05/16/17 05/16/17 05/17/17 12:55 12:55 06:30 WBC 9.0 8.4 RBC 4.71 4.32 Hgb 13.2 D 12.5 Hct 40.1 D 36.7 MCV 85.3 84.9 MCH 28.0 29.0 MCHC 32.9 34.1 RDW 13.6 13.8 Plt Count 455 H D 406 MPV 7.4 L 7.6 Neutrophils % 58.0 Lymphocytes % 28.9 Monocytes % 7.3 Eosinophils % 4.6 H Basophils % 1.2 Sodium 137 Potassium 4.4 Chloride 96 L Carbon Dioxide 32 Anion Gap 9 BUN 13 D Creatinine 0.8 D Creat Clearance w eGFR > 60 Random Glucose 142 H D Calcium 9.4 Phosphorus 4.1 Magnesium 2.1 Total Bilirubin 0.2 AST 67 H ALT 96 H Alkaline Phosphatase 100 Total Protein 7.8 Albumin 3.4 05/17/17 06:30 WBC RBC Hgb Hct MCV MCH MCHC RDW Plt Count MPV Neutrophils % Lymphocytes % Monocytes % Eosinophils % Basophils % Sodium 136 Potassium 4.8 Chloride 98 Carbon Dioxide 30 Anion Gap 8 BUN 14 Creatinine 0.8 Creat Clearance w eGFR > 60 Random Glucose 92 D Calcium 8.8 Phosphorus 4.2 Magnesium 2.0 Total Bilirubin 0.4 D AST 60 H ALT 87 H Alkaline Phosphatase 88 Total Protein 6.9 Albumin 3.2 L ASSESSMENT AND PLAN: s/p C5-C6 Posterior Decompression/I&D/Hematoma Evacuation Anterior Cervical Spine Elevated LFTs likely antibiotic related - Advised patient to minimize stimulation. Many visitors throughout the day. Would advise quiet recuperation time. - pain control - incentive spirometry - monitor drain output - empiric antibiotics per surgery - monitor LFTs - PO as tolerated - DVT prophylaxis - dispo per surgery Dr Florentino
[2017-05-17] MEDS: HYDROmorphone *PCA* 6MG/30ML DISP.SYRIN PCA SCH (17:40)
[2017-05-17] MEDS ORDERED: PT OWN MED DRAWER 7, Y5N ONE (18:39)
--- NOTE | 2017-05-17 19:48 | PN ---
Progress Note (short form) - Note Progress Note: ATTENTION ALL CARE PROVIDERS: NO ORDERS FOR HECTOR FRANZ ARE TO BE CHANGED WITHOUT DISCUSSING WITH ME, DR. JASVIR RUIZ. CALL MY CELL PHONE: TO DISCUSS ANY DESIRED CHANGES TO MEDICATIONS OR MANAGEMENT. THIS IS NO LONGER A TEACHING CASE. RESIDENTS ARE NOT TO PRACTICE NEURO/EXTREMITY /MUSCULOSKELETAL ASSESSMENTS ON HECTOR FRANZ. 46M s/p C5-C7 posterior decompression & instrumented fusion, and I&D anterior cervical spine wound POD #7. Much better day today. No unnecessary limb manipulations. Pain well controlled. (+) Headaches, but improved per patient, d/t CSF drainage and posterior cervical spine muscle dissection. This is WELL controlled with diazepam and Dilaudid DIGITAL MARKETING MANAGER. (+) LUE, B/L thigh, & B/L foot paraesthesias. (+) Left eye visual disturbance/blurred vision. (-) Current chest pain, shortness of breath, nausea, vomiting, or chills. (+) Intermittent sweats. (+) Voiding; (+) Flatus; (+) BM. All labs & vitals reviewed. PE: AAO x 3, NAD. Neck: Hard cervical collar intact & in place. Anterior Cervical Spine: Supple, soft. Dressing C/D/I. Drain intact & in place; output: 7cc/today. Posterior Cervical Spine: Supple, soft. Dressing C/D/I. Drain intact & in place ; output: 13cc/today. B/L UE & LE M: All muscles supplying B/L shoulders, elbows, wrists, hands, hips, knees, ankles, and feet intact. RUE S: C5-T1 2/2. LUE S: C5-T1 1/2. B/L LE S: L2-L5 2/2; S1 1/2; LFCN distribution 1/2. 46M s/p C5-C7 posterior decompression & instrumented fusion, and I&D anterior cervical spine wound POD #7. -Patient improving; maintain current management plan; do not divert; please call with all questions/concerns. -Refrain from redundant B/L UE & LE motor strength assessments as they trigger B /L UE neuralgic symptoms. -Pain control; Strictly NO NSAID'S nor STEROIDS; Neurontin 300mg PO TID standing ; Dilaudid DIGITAL MARKETING MANAGER & diazepam for neck pain, muscle spasm (posterior surgical dissection), and headaches. -Hold all products containing Acetaminophen due to transient rise in LFT's. -STRICT DRAIN MANAGEMENT: - LILIAN #1 - Anterior: LIGHT thumb press suction only. Record output as LILIAN #1. - LILIAN #2 - Posterior: FULL squeeze suction. Record output as LILIAN #2. -Ancef 1g IV q8h standing while all drains are in. -DVT PPx: - Mechanical: CARMITA's & SCD's - Chemical: Aspirin EC 81mg PO BID. -Incentive spirometry. -Maintain hard cervical collar. -PWB B/L UE & LE; no heavy lifting. -Hold PT/OT for now. -Clear liquid diet. -Care per ICU team; do not downgrade from ICU. -Plan discussed w/Dr. Brandon (neurosurgery) who is in agreement. -Will follow. ATTENTION ALL CARE PROVIDERS: NO ORDERS FOR HECTOR FRANZ ARE TO BE CHANGED WITHOUT DISCUSSING WITH ME, DR. JASVIR RUIZ. CALL MY CELL PHONE: TO DISCUSS ANY DESIRED CHANGES TO MEDICATIONS OR MANAGEMENT. THIS IS NO LONGER A TEACHING CASE. RESIDENTS ARE NOT TO PRACTICE NEURO/EXTREMITY /MUSCULOSKELETAL ASSESSMENTS ON HECTOR FRANZ. Vitaly Crisostomo MD (Orthopaedic Surgery).
[2017-05-17] MEDS: SENNOSIDES 8.6MG TABLET (FP) PO SCH (21:17)
[2017-05-18] MEDS: CEFAZOLIN 1 GM PUSH 1 GM/10 ML DISP.SYRIN IVPUSH SCH ×3 (02:37→19:12)
[2017-05-18] MEDS: DOCUSATE SODIUM 100 MG CAPSULE (FP) PO SCH ×3 (05:33→21:47)
[2017-05-18] MEDS: GABAPENTIN 300 MG CAPSULE (FP) PO SCH ×3 (05:33→21:47)
[2017-05-18] MEDS: diazePAM 5 MG TABLET PO PRN ×3 (06:12→21:47)
[2017-05-18] MEDS ORDERED: LORazepam 2 MG/ML SDV VIAL IVPUSH ONE (07:00)
[2017-05-18 08:36] LABS: BASO % 1.3 % (0-2.0); EOS % 4.6 % (0-4.5); HEMATOCRIT 35.4 % (35.4-49); HEMOGLOBIN 11.9 GM/dL (11.7-16.9); MCH 28.3 pg (25.7-33.7); MCHC 33.7 g/dl (32.0-35.9); MEAN PLT VOLUME 7.5 fl (7.5-11.1); MONO % 10.6 % (3.8-10.2); NEUT % 54.5 % (42.8-82.8); PLATELET COUNT 403 K/MM3 (134-434); RBC 4.21 M/mm3 (4.00-5.60); WHITE BLOOD COUNT 8.4 K/mm3 (4.0-10.0)
[2017-05-18 08:42] LABS: CHLORIDE 99 mmol/L (98-107); POTASSIUM 4.3 mmol/L (3.5-5.1); SODIUM 134 mmol/L (136-145)
[2017-05-18 09:02] LABS: ALBUMIN 3.1 g/dl (3.4-5.0); ALK PHOS 83 U/L (45-117); ANION GAP 4 (8-16); BILIRUBIN,TOTAL 0.4 mg/dL (0.2-1.0); BLOOD UREA NITROGEN 12 mg/dL (7-18); CALCIUM 8.8 mg/dL (8.5-10.1); CO2 31 mmol/L (21-32); CREATININE 0.7 mg/dL (0.7-1.3); GLUCOSE,RANDOM 96 mg/dL (74-106); MAGNESIUM 1.9 mg/dL (1.8-2.4); PHOSPHOROUS 4.9 mg/dL (2.5-4.9); SGOT/AST 35 U/L (15-37); SGPT/ALT 65 U/L (12-78); TOT PROT 6.8 g/dl (6.4-8.2)
--- NOTE | 2017-05-18 10:39 | PN ---
Progress Note, Physician Chief Complaint: Pt day#8 s/p revision ACDF - Current Medication List Current Medications: Active Medications Aspirin (Ecotrin -) 81 mg PO BID [facility] Last Admin: 05/17/17 21:20 Dose: 81 mg Diazepam (Valium -) 10 mg PO Q6H PRN PRN Reason: ANXIETY Last Admin: 05/18/17 06:12 Dose: 10 mg Docusate Sodium (Colace -) 100 mg PO TID [facility] Last Admin: 05/18/17 05:33 Dose: 100 mg Gabapentin (Neurontin -) 300 mg PO TID [facility] Last Admin: 05/18/17 05:33 Dose: 300 mg Hydromorphone HCl (Dilaudid Jazz Singer -) 6 mg DIVISION SALES MANAGER DIVISION SALES MANAGER [facility] PRN Reason: Protocol Last Admin: 05/18/17 00:00 Dose: 6 mg Cefazolin Sodium (Ancef -) 1 gm in 10 mls @ 120 mls/hr IVPUSH Q8H-IV [facility] Last Admin: 05/18/17 02:37 Dose: 120 mls/hr Ondansetron HCl (Zofran Injection) 4 mg IVPUSH Q6H PRN PRN Reason: NAUSEA AND/OR VOMITING Senna (Senna -) 2 tab PO HS [facility] Last Admin: 05/17/17 21:17 Dose: Not Given - Objective Vital Signs: Vital Signs Temperature 98 F 05/18/17 06:00 Pulse Rate 102 H 05/18/17 06:00 Respiratory Rate 18 05/18/17 06:00 Blood Pressure 124/72 05/18/17 06:00 O2 Sat by Pulse Oximetry (%) 98 05/17/17 20:06 Constitutional: Yes: Well Nourished, No Distress, Calm Labs: CBC, BMP 05/18/17 08:04 05/18/17 08:04 INR, PTT INR 1.11 (0.82-1.09) 05/10/17 06:30 Assessment/Plan DIVISION SALES MANAGER was restarted yesterday morning for relapse of pain. Pain under better control today
[2017-05-18] MEDS ORDERED: PT OWN MED DRAWER 7, Y5N ONE (10:42)
[2017-05-18] MEDS: HYDROmorphone *PCA* 6MG/30ML DISP.SYRIN PCA SCH ×3 (11:05→19:13)
[2017-05-18] MEDS: ASPIRIN COATED 81 MG TABLET.EC PO SCH ×2 (11:43→21:47)
--- NOTE | 2017-05-18 14:39 | PN ---
Progress Note (short form) - Note Progress Note: ATTENTION ALL CARE PROVIDERS: NO ORDERS FOR HECTOR FRANZ ARE TO BE CHANGED WITHOUT DISCUSSING WITH ME, DR. JASVIR RUIZ. CALL MY CELL PHONE: TO DISCUSS ANY DESIRED CHANGES TO MEDICATIONS OR MANAGEMENT. THIS IS NO LONGER A TEACHING CASE. RESIDENTS ARE NOT TO PRACTICE NEURO/EXTREMITY /MUSCULOSKELETAL ASSESSMENTS ON HECTOR FRANZ. 46M s/p C5-C7 posterior decompression & instrumented fusion, and I&D anterior cervical spine wound POD #8. Setback at 6am today; despite presence of LUE "LIMB ALERT" bracelet, blood pressure was checked on left arm. This aggravated the patient's otherwise under control LUE neuralgic pain, causing him to become highly distressed. At this time, pain is better controlled. (+) Headaches, but improved per patient. This is expected and due to a combination of CSF drainage and posterior cervical spine muscle dissection. This is WELL controlled with diazepam and Dilaudid PRESIDENT CELEBRITY ACQUISTION. (+) LUE, B/L thigh, & B/L foot paraesthesias. (+) Left eye visual disturbance/blurred vision. (-) Current chest pain, shortness of breath, nausea, vomiting, or chills. (+) Intermittent sweats. (+) Voiding; (+) Flatus; (+) BM. All labs & vitals reviewed. PE: AAO x 3, NAD. Neck: Hard cervical collar intact & in place. Anterior Cervical Spine: Supple, soft. Dressing C/D/I. Drain intact & in place; output: 3cc/today. Posterior Cervical Spine: Supple, soft. Dressing C/D/I. Drain intact & in place ; output: 5cc/today. B/L UE & LE M: All muscles supplying B/L shoulders, elbows, wrists, hands, hips, knees, ankles, and feet intact. RUE S: C5-T1 2/2. LUE S: C5-T1 1/2. B/L LE S: L2-L5 2/2; S1 1/2; LFCN distribution 1/2. 46M s/p C5-C7 posterior decompression & instrumented fusion, and I&D anterior cervical spine wound POD #8. -Patient improving; maintain current management plan; do not divert; please call with all questions/concerns. -Refrain from redundant B/L UE & LE motor strength assessments as they trigger B /L UE neuralgic symptoms. -Pain control; Strictly NO NSAID'S nor STEROIDS; Neurontin 300mg PO TID standing ; Dilaudid PRESIDENT CELEBRITY ACQUISTION & diazepam for neck pain, muscle spasm (posterior surgical dissection), and headaches. -Hold all products containing Acetaminophen due to transient rise in LFT's. -STRICT DRAIN MANAGEMENT: - LILIAN #1 - Anterior: LIGHT thumb press suction only. Record output as LILIAN #1. - LILIAN #2 - Posterior: FULL squeeze suction. Record output as LILIAN #2. -Ancef 1g IV q8h standing while all drains are in. -DVT PPx: - Mechanical: CARMITA's & SCD's - Chemical: Aspirin EC 81mg PO BID. -Incentive spirometry. -Maintain hard cervical collar. -PWB B/L UE & LE; no heavy lifting. -Hold PT/OT for now. -Advance to puree diet with Ensure beverages qmeal. -Care per ICU team; do not downgrade from ICU. -Plan discussed w/Dr. Brandon (neurosurgery) who is in agreement. -Will follow. ATTENTION ALL CARE PROVIDERS: NO ORDERS FOR HECTOR FRANZ ARE TO BE CHANGED WITHOUT DISCUSSING WITH ME, DR. JASVIR RUIZ. CALL MY CELL PHONE: TO DISCUSS ANY DESIRED CHANGES TO MEDICATIONS OR MANAGEMENT. THIS IS NO LONGER A TEACHING CASE. RESIDENTS ARE NOT TO PRACTICE NEURO/EXTREMITY /MUSCULOSKELETAL ASSESSMENTS ON HECTOR FRANZ. Vitaly Crisostomo MD (Orthopaedic Surgery).
--- NOTE | 2017-05-18 17:28 | PN ---
Physical Exam: SUBJECTIVE: Patient seen and examined Patient continues to have headache but improving. OBJECTIVE: Vital Signs Period Temp Pulse Resp BP Sys/Kumari Pulse Ox Last 24 Hr 97.6 F-98.6 F 85-116 16-19 103-139/59-102 98-98 Laboratory Results - last 24 hr 05/18/17 05/18/17 08:04 08:04 WBC 8.4 RBC 4.21 Hgb 11.9 Hct 35.4 MCV 84.0 MCH 28.3 MCHC 33.7 RDW 14.0 Plt Count 403 MPV 7.5 Neutrophils % 54.5 Lymphocytes % 29.0 Monocytes % 10.6 H Eosinophils % 4.6 H Basophils % 1.3 Sodium 134 L Potassium 4.3 Chloride 99 Carbon Dioxide 31 Anion Gap 4 L BUN 12 Creatinine 0.7 Creat Clearance w eGFR > 60 Random Glucose 96 Calcium 8.8 Phosphorus 4.9 Magnesium 1.9 Total Bilirubin 0.4 AST 35 D ALT 65 D Alkaline Phosphatase 83 Total Protein 6.8 Albumin 3.1 L Active Medications Generic Name Dose Route Start Last Admin Trade Name Freq PRN Reason Stop Dose Admin Aspirin 81 mg 05/13/17 22:00 05/18/17 11:43 Ecotrin - PO 81 mg BID GA Administration Diazepam 10 mg 05/15/17 14:46 05/18/17 14:37 Valium - PO 10 mg Q6H PRN Administration ANXIETY Docusate Sodium 100 mg 05/12/17 14:00 05/18/17 05:33 Colace - PO 100 mg TID GA Administration Gabapentin 300 mg 05/12/17 22:00 05/18/17 14:37 Neurontin - PO 300 mg TID GA Administration Hydromorphone HCl 6 mg 05/17/17 03:15 05/18/17 11:05 Dilaudid Applications Support Engineer - SOFTWARE TEST ENGINEER 6 mg SOFTWARE TEST ENGINEER GA Administration Protocol Cefazolin Sodium 1 gm in 10 mls @ 120 mls/hr 05/12/17 14:30 05/18/17 11:11 Ancef - IVPUSH 120 mls/hr Q8H-IV GA Administration Ondansetron HCl 4 mg 05/12/17 10:33 Zofran Injection IVPUSH Q6H PRN NAUSEA AND/OR VOMITING Senna 2 tab 05/12/17 22:00 05/17/17 21:17 Senna - PO Not Given HS GA NO PE is done as per 's request. Cervical MRI result on 05/09/2017 reviewed. Impression: Status post post C5-C7 anterior cervical fusion with C6 corpectomy. Extensive prevertebral fluid, likely postoperative. Large right anterior neck collection, extending from the C4 through the C7 levels. It does not communicate with the spinal canal. It follows the signal intensity of simple fluid. Findings are most likely related to large postoperative seroma. Deviation of the trachea to the left. No compression of the trachea. For complete evaluation with CT scan may be of benefit to confirm the density of the fluid. Spondylotic changes as above. ASSESSMENT AND PLAN: 46 y/o male with/o recent s/p C5-C7 posterior decompression & instrumented fusion who presented with neck pain and swelling POD #8 s/p CSF leak with Fluid collection in neck: I&D. s/p 5-C7 Anterior cervical discectomy and fusion and C6 corpectomy last admission. Pain control as per surgeon , on SOFTWARE TEST ENGINEER pump , further adjustments as per surgeon. Head of bed elevated to 30-45 degrees as per surgeon, continue incentive spirometry , neuro checks continue. # acute mild transaminitis :improving , discontinued Tylenol for now, if continues to elevate will discontinue Zofran but will keep it for now since patient had an episode of nausea and vomiting.. # Blurry vision in L eye. evaluated by process treater , and by neurologist , No obvious findings. DVT PX : ASA 81mg BID per surgical team Visit type - Emergency Visit Emergency Visit: Yes ED Registration Date: 05/09/17 Care time: The patient presented to the Emergency Department on the above date and was hospitalized for further evaluation of their emergent condition. - New Patient This patient is new to me today: No - Critical Care Critical Care patient: No - Discharge Referral Referred to [facility] No
[2017-05-18] MEDS: SENNOSIDES 8.6MG TABLET (FP) PO SCH (21:47)
[2017-05-19] MEDS: CEFAZOLIN 1 GM PUSH 1 GM/10 ML DISP.SYRIN IVPUSH SCH ×3 (01:26→17:46)
[2017-05-19] MEDS: GABAPENTIN 300 MG CAPSULE (FP) PO SCH ×3 (06:59→21:55)
[2017-05-19] MEDS: DOCUSATE SODIUM 100 MG CAPSULE (FP) PO SCH ×3 (06:59→21:55)
[2017-05-19] MEDS: ASPIRIN COATED 81 MG TABLET.EC PO SCH ×2 (09:53→21:56)
[2017-05-19] MEDS: diazePAM 5 MG TABLET PO PRN ×3 (09:57→22:01)
--- NOTE | 2017-05-19 10:26 | PN ---
Progress Note (short form) - Note Progress Note: PULMONARY/CCM Pt seen and examined in the ICU. Still with LUE numbness, LLE toes/ankle numbness. No shortness of breath or chest pain. No fevers or chills. Last Vital Signs Temp Pulse Resp BP Pulse Ox 98.7 F 96 H 18 97/83 98 05/19/17 07:00 05/19/17 07:00 05/19/17 08:44 05/19/17 07:00 05/19/17 08:44 Intake & Output 05/16/17 05/17/17 05/18/17 05/19/17 23:59 23:59 23:59 23:59 Intake Total 1030 1320 500 100 Output Total 2170 1022 558 505 Balance -1140 298 -58 -405 Weight 80.853 kg 80.921 kg Gen: NAD at rest Heat: RRR Lung: decreased breath sounds at the bases Abd: soft, nontender Ext: no edema CBC, BMP 05/18/17 08:04 05/18/17 08:04 Hepatic Panel Total Bilirubin 0.4 mg/dL (0.2-1.0) 05/18/17 08:04 AST 35 U/L (15-37) D 05/18/17 08:04 ALT 65 U/L (12-78) D 05/18/17 08:04 Alkaline Phosphatase 83 U/L (45-117) 05/18/17 08:04 Albumin 3.1 g/dl (3.4-5.0) L 05/18/17 08:04 Active Medications Aspirin (Ecotrin -) 81 mg PO BID [facility] Last Admin: 05/19/17 09:53 Dose: 81 mg Diazepam (Valium -) 10 mg PO Q6H PRN PRN Reason: ANXIETY Last Admin: 05/19/17 09:57 Dose: 10 mg Docusate Sodium (Colace -) 100 mg PO TID [facility] Last Admin: 05/19/17 06:59 Dose: 100 mg Gabapentin (Neurontin -) 300 mg PO TID [facility] Last Admin: 05/19/17 06:59 Dose: 300 mg Hydromorphone HCl (Dilaudid Pharmacy Cashier -) 6 mg PAYROLL MANAGER PAYROLL MANAGER [place] PRN Reason: Protocol Last Admin: 05/18/17 19:13 Dose: 6 mg Cefazolin Sodium (Ancef -) 1 gm in 10 mls @ 120 mls/hr IVPUSH Q8H-IV [facility] Last Admin: 05/19/17 09:53 Dose: 120 mls/hr Ondansetron HCl (Zofran Injection) 4 mg IVPUSH Q6H PRN PRN Reason: NAUSEA AND/OR VOMITING Senna (Senna -) 2 tab PO HS [facility] Last Admin: 05/18/17 21:47 Dose: 2 tab A/P s/p C5-C6 Posterior Decompression/I&D/Hematoma Evacuation Anterior Cervical Spine Elevated LFTs likely antibiotic related - pain control - incentive spirometry - monitor drain output - surgery f/u - empiric antibiotics per surgery - monitor LFTs - PO as tolerated - DVT prophylaxis - dispo per surgery
--- NOTE | 2017-05-19 10:28 | PN ---
Progress Note (short form) - Note Progress Note: ATTENTION ALL CARE PROVIDERS: NO ORDERS FOR HECTOR FRANZ ARE TO BE CHANGED WITHOUT DISCUSSING WITH ME, DR. JASVIR RUIZ. CALL MY CELL PHONE: TO DISCUSS ANY DESIRED CHANGES TO MEDICATIONS OR MANAGEMENT. THIS IS NO LONGER A TEACHING CASE. RESIDENTS ARE NOT TO PRACTICE NEURO/EXTREMITY /MUSCULOSKELETAL ASSESSMENTS ON HECTOR FRANZ. 46M s/p C5-C7 posterior decompression & instrumented fusion, and I&D anterior cervical spine wound POD #9. Pain well controlled. No acute events overnight. (+) Headaches. This is expected and due to a combination of CSF drainage and posterior cervical spine muscle dissection. This is WELL controlled with diazepam and Dilaudid PILE DRIVER OPERATOR BARGE MOUNTED. (+) LUE, B/L thigh, & B/L foot paraesthesias. (+) Left eye visual disturbance/blurred vision. (-) Current chest pain, shortness of breath, nausea, vomiting, or chills. (+) Intermittent sweats. (+) Voiding; (+) Flatus; (+) BM. All labs & vitals reviewed. AVSS. Lab holiday. PE: AAO x 3, NAD. Neck: Hard cervical collar intact & in place. Anterior Cervical Spine: Supple, soft. Dressing C/D/I. Drain intact & in place; output: 5cc/24 hrs. Posterior Cervical Spine: Supple, soft. Dressing C/D/I. Drain intact & in place ; output: 8cc/24 hrs. B/L UE & LE M: All muscles supplying B/L shoulders, elbows, wrists, hands, hips, knees, ankles, and feet intact. RUE S: C5-T1 2/2. LUE S: C5-T1 1/2. B/L LE S: L2-L5 2/2; S1 1/2; LFCN distribution 1/2. 46M s/p C5-C7 posterior decompression & instrumented fusion, and I&D anterior cervical spine wound POD #9. -Patient improving; maintain current management plan; do not divert; please call with all questions/concerns. -Refrain from redundant B/L UE & LE motor strength assessments as they trigger B /L UE neuralgic symptoms. -Pain control; Strictly NO NSAID'S nor STEROIDS; Neurontin 300mg PO TID standing ; Dilaudid PILE DRIVER OPERATOR BARGE MOUNTED & diazepam for neck pain, muscle spasm (posterior surgical dissection), and headaches. -Hold all products containing Acetaminophen due to transient rise in LFT's. -STRICT DRAIN MANAGEMENT: - LILIAN #1 - Anterior: LIGHT thumb press suction only. Record output as LILIAN #1. - LILIAN #2 - Posterior: FULL squeeze suction. Record output as LILIAN #2. -Ancef 1g IV q8h standing while all drains are in. -DVT PPx: - Mechanical: CARMITA's & SCD's - Chemical: Aspirin EC 81mg PO BID. -Incentive spirometry. -Maintain hard cervical collar. -PWB B/L UE & LE; no heavy lifting. -Hold PT/OT for now. -Advance to soft regular diet with Ensure beverages qmeal. -Care per ICU team; do not downgrade from ICU. -Plan discussed w/Dr. Brandon (neurosurgery) who is in agreement. -Will follow. ATTENTION ALL CARE PROVIDERS: NO ORDERS FOR HECTOR FRANZ ARE TO BE CHANGED WITHOUT DISCUSSING WITH ME, DR. JASVIR RUIZ. CALL MY CELL PHONE: TO DISCUSS ANY DESIRED CHANGES TO MEDICATIONS OR MANAGEMENT. THIS IS NO LONGER A TEACHING CASE. RESIDENTS ARE NOT TO PRACTICE NEURO/EXTREMITY /MUSCULOSKELETAL ASSESSMENTS ON HECTOR FRANZ. Vitaly Crisostomo MD (Orthopaedic Surgery).
--- NOTE | 2017-05-19 19:34 | PN ---
Progress Note (short form) - Note Progress Note: Vital Signs Temperature 98.7 F 05/19/17 07:00 Pulse Rate 96 H 05/19/17 07:00 Respiratory Rate 18 05/19/17 08:44 Blood Pressure 97/83 05/19/17 07:00 O2 Sat by Pulse Oximetry (%) 98 05/19/17 08:44 CBCD WBC 8.4 K/mm3 (4.0-10.0) 05/18/17 08:04 RBC 4.21 M/mm3 (4.00-5.60) 05/18/17 08:04 Hgb 11.9 GM/dL (11.7-16.9) 05/18/17 08:04 Hct 35.4 % (35.4-49) 05/18/17 08:04 MCV 84.0 fl (80-96) 05/18/17 08:04 MCHC 33.7 g/dl (32.0-35.9) 05/18/17 08:04 RDW 14.0 % (11.9-15.9) 05/18/17 08:04 Plt Count 403 K/MM3 (134-434) 05/18/17 08:04 MPV 7.5 fl (7.5-11.1) 05/18/17 08:04 CMP Sodium 134 mmol/L (136-145) L 05/18/17 08:04 Potassium 4.3 mmol/L (3.5-5.1) 05/18/17 08:04 Chloride 99 mmol/L (98-107) 05/18/17 08:04 Carbon Dioxide 31 mmol/L (21-32) 05/18/17 08:04 Anion Gap 4 (8-16) L 05/18/17 08:04 BUN 12 mg/dL (7-18) 05/18/17 08:04 Creatinine 0.7 mg/dL (0.7-1.3) 05/18/17 08:04 Creat Clearance w eGFR > 60 (>60) 05/18/17 08:04 Random Glucose 96 mg/dL (74-106) 05/18/17 08:04 Calcium 8.8 mg/dL (8.5-10.1) 05/18/17 08:04 Total Bilirubin 0.4 mg/dL (0.2-1.0) 05/18/17 08:04 AST 35 U/L (15-37) D 05/18/17 08:04 ALT 65 U/L (12-78) D 05/18/17 08:04 Alkaline Phosphatase 83 U/L (45-117) 05/18/17 08:04 Total Protein 6.8 g/dl (6.4-8.2) 05/18/17 08:04 Albumin 3.1 g/dl (3.4-5.0) L 05/18/17 08:04 CMP Sodium 134 mmol/L (136-145) L 05/18/17 08:04 Potassium 4.3 mmol/L (3.5-5.1) 05/18/17 08:04 Chloride 99 mmol/L (98-107) 05/18/17 08:04 Carbon Dioxide 31 mmol/L (21-32) 05/18/17 08:04 Anion Gap 4 (8-16) L 05/18/17 08:04 BUN 12 mg/dL (7-18) 05/18/17 08:04 Creatinine 0.7 mg/dL (0.7-1.3) 05/18/17 08:04 Creat Clearance w eGFR > 60 (>60) 05/18/17 08:04 Random Glucose 96 mg/dL (74-106) 05/18/17 08:04 Lactic Acid 1.1 mmol/L (0.0-2.0) 05/09/17 16:23 Calcium 8.8 mg/dL (8.5-10.1) 05/18/17 08:04 Phosphorus 4.9 mg/dL (2.5-4.9) 05/18/17 08:04 Magnesium 1.9 mg/dL (1.8-2.4) 05/18/17 08:04 Total Bilirubin 0.4 mg/dL (0.2-1.0) 05/18/17 08:04 AST 35 U/L (15-37) D 05/18/17 08:04 ALT 65 U/L (12-78) D 05/18/17 08:04 Alkaline Phosphatase 83 U/L (45-117) 05/18/17 08:04 C-Reactive Protein 3.6 MG/DL (0.00-0.3) H 05/09/17 20:50 Total Protein 6.8 g/dl (6.4-8.2) 05/18/17 08:04 Albumin 3.1 g/dl (3.4-5.0) L 05/18/17 08:04 Current Medications Generic Name Dose Route Start Last Admin Trade Name Freq PRN Reason Stop Dose Admin Aspirin 81 mg 05/13/17 22:00 05/19/17 09:53 Ecotrin - PO 81 mg BID [facility] Administration Diazepam 10 mg 05/15/17 14:46 05/19/17 16:28 Valium - PO 10 mg Q6H PRN Administration ANXIETY Docusate Sodium 100 mg 05/12/17 14:00 05/19/17 14:28 Colace - PO 100 mg TID [place] Administration Gabapentin 300 mg 05/12/17 22:00 05/19/17 14:28 Neurontin - PO 300 mg TID [facility] Administration Hydromorphone HCl 6 mg 05/17/17 03:15 05/18/17 19:13 Dilaudid Wash Driller Helper - MAGAZINE KEEPER 6 mg MAGAZINE KEEPER [place] Administration Protocol Cefazolin Sodium 1 gm in 10 mls @ 120 mls/hr 05/12/17 14:30 05/19/17 17:46 Ancef - IVPUSH 120 mls/hr Q8H-IV [facility] Administration Ondansetron HCl 4 mg 05/12/17 10:33 Zofran Injection IVPUSH Q6H PRN NAUSEA AND/OR VOMITING Senna 2 tab 05/12/17 22:00 05/18/17 21:47 Senna - PO 2 tab HS [place] Administration Home Medications Medication Instructions Recorded Oxycodone HCl 30 mg PO Q8H 05/01/17 PE: per 's Cervical MRI result on 05/09/2017 reviewed. Impression: Status post post C5-C7 anterior cervical fusion with C6 corpectomy. Extensive prevertebral fluid, likely postoperative. Large right anterior neck collection, extending from the C4 through the C7 levels. It does not communicate with the spinal canal. It follows the signal intensity of simple fluid. Findings are most likely related to large postoperative seroma. Deviation of the trachea to the left. No compression of the trachea. For complete evaluation with CT scan may be of benefit to confirm the density of the fluid. Spondylotic changes as above. ASSESSMENT AND PLAN: 46 y/o male with/o recent s/p C5-C7 posterior decompression & instrumented fusion who presented with neck pain and swelling POD #9 s/p CSF leak with Fluid collection in neck: I&D. s/p 5-C7 Anterior cervical discectomy and fusion and C6 corpectomy last admission. Pain control as per surgeon , on MAGAZINE KEEPER pump , further adjustments as per surgeon. Head of bed elevated to 30-45 degrees as per surgeon, continue incentive spirometry , neuro checks continue. # acute mild transaminitis :back to normal level # Blurry vision in L eye. evaluated by dean of instruction , and by neurologist , No obvious findings. DVT PX : ASA 81mg BID per surgical team will discuss with in terms of keeping the patient under his service. Dr.Daniel Crisostomo will keep the patient under his service. Visit type - Emergency Visit Emergency Visit: Yes ED Registration Date: 05/09/17 Care time: The patient presented to the Emergency Department on the above date and was hospitalized for further evaluation of their emergent condition. - New Patient This patient is new to me today: No - Critical Care Critical Care patient: No - Discharge Referral Referred to [facility] No
[2017-05-19] MEDS: HYDROmorphone *PCA* 6MG/30ML DISP.SYRIN PCA SCH ×2 (19:39→21:40)
[2017-05-19] MEDS ORDERED: HYDROmorphone *PCA* 6MG/30ML DISP.SYRIN PCA ONE (21:38)
[2017-05-19] MEDS: SENNOSIDES 8.6MG TABLET (FP) PO SCH (21:55)
--- NOTE | 2017-05-19 23:05 | PN ---
Progress Note, Physician Chief Complaint: Pt. states he is feeling good and that the pain control is at a perfect level currently. - Current Medication List Current Medications: Active Medications Aspirin (Ecotrin -) 81 mg PO BID [facility] Last Admin: 05/19/17 21:56 Dose: 81 mg Diazepam (Valium -) 10 mg PO Q6H PRN PRN Reason: ANXIETY Last Admin: 05/19/17 22:01 Dose: 10 mg Docusate Sodium (Colace -) 100 mg PO TID [facility] Last Admin: 05/19/17 21:55 Dose: 100 mg Gabapentin (Neurontin -) 300 mg PO TID [facility] Last Admin: 05/19/17 21:55 Dose: 300 mg Hydromorphone HCl (Dilaudid Interactive Video Technician -) [address] RECORDER [address]IC [address] RECORDER [facility] PRN Reason: Protocol Last Admin: 05/19/17 21:40 Dose: 6 mg Cefazolin Sodium (Ancef -) 1 gm in 10 mls @ 120 mls/hr IVPUSH Q8H-IV [facility] Last Admin: 05/19/17 17:46 Dose: 120 mls/hr Ondansetron HCl (Zofran Injection) 4 mg IVPUSH Q6H PRN PRN Reason: NAUSEA AND/OR VOMITING Senna (Senna -) 2 tab PO HS [facility] Last Admin: 05/19/17 21:55 Dose: 2 tab - Objective Vital Signs: Vital Signs Temperature 98.7 F 05/19/17 07:00 Pulse Rate 96 H 05/19/17 07:00 Respiratory Rate 18 05/19/17 08:44 Blood Pressure 97/83 05/19/17 07:00 O2 Sat by Pulse Oximetry (%) 98 05/19/17 08:44 Constitutional: Yes: Well Nourished, No Distress, Calm Neurological: Yes: WNL, Alert, Oriented Labs: CBC, BMP 05/18/17 08:04 05/18/17 08:04 INR, PTT INR 1.11 (0.82-1.09) 05/10/17 06:30 Assessment/Plan Mr. Garcia has had 3 surgeries on his cervical spine this year and is on ELECTRONIC COURT RECORDER for help controlling his chronic pain. Doing well. Continue ELECTRONIC COURT RECORDER
[2017-05-20] MEDS: CEFAZOLIN 1 GM PUSH 1 GM/10 ML DISP.SYRIN IVPUSH SCH ×3 (01:22→18:10)
[2017-05-20] MEDS: HYDROmorphone *PCA* 6MG/30ML DISP.SYRIN PCA SCH (03:46)
[2017-05-20] MEDS: diazePAM 5 MG TABLET PO PRN ×4 (03:49→21:24)
[2017-05-20] MEDS: DOCUSATE SODIUM 100 MG CAPSULE (FP) PO SCH ×3 (05:57→21:24)
[2017-05-20] MEDS: GABAPENTIN 300 MG CAPSULE (FP) PO SCH ×3 (05:57→21:24)
[2017-05-20] MEDS: ASPIRIN COATED 81 MG TABLET.EC PO SCH ×2 (10:21→21:23)
--- NOTE | 2017-05-20 15:23 | PN ---
Progress Note (short form) - Note Progress Note: Patient seen and examined in the ICU. No significant change in clinical/neuro exam. Still with headaches, left arm, leg weakness/numbness/paresthesias. No CP or SOB. Was able to shave today with his hard collar off. Seems like slow but steady progress. No Labs. OBJECTIVE: Intake & Output 05/17/17 05/18/17 05/19/17 05/20/17 23:59 23:59 23:59 23:59 Intake Total 1320 500 600 470 Output Total 5771 966 1902 403 Balance 67 Weight 178 lb 4 oz 178 lb 6.4 oz 176 lb 2 oz Last Vital Signs Temp Pulse Resp BP Pulse Ox 98.3 F 100 H 17 153/78 98 05/20/17 11:00 05/20/17 13:10 05/20/17 13:10 05/20/17 13:10 05/20/17 08:45 Active Medications Aspirin (Ecotrin -) 81 mg PO BID [facility] Last Admin: 05/20/17 10:21 Dose: 81 mg Diazepam (Valium -) 10 mg PO Q6H PRN PRN Reason: ANXIETY Last Admin: 05/20/17 10:21 Dose: 10 mg Docusate Sodium (Colace -) 100 mg PO TID [facility] Last Admin: 05/20/17 05:57 Dose: 100 mg Gabapentin (Neurontin -) 300 mg PO TID [facility] Last Admin: 05/20/17 05:57 Dose: 300 mg Hydromorphone HCl (Dilaudid Theater Company Producer -) 6 mg SILVER LAP MACHINE TENDER SILVER LAP MACHINE TENDER [place] PRN Reason: Protocol Last Admin: 05/20/17 03:46 Dose: 6 mg Cefazolin Sodium (Ancef -) 1 gm in 10 mls @ 120 mls/hr IVPUSH Q8H-IV [facility] Last Admin: 05/20/17 10:16 Dose: 120 mls/hr Ondansetron HCl (Zofran Injection) 4 mg IVPUSH Q6H PRN PRN Reason: NAUSEA AND/OR VOMITING Senna (Senna -) 2 tab PO HS [facility] Last Admin: 05/19/17 21:55 Dose: 2 tab Gen: NAD at rest Heart: RRR Lung: decreased breath sounds at the bases Abd: soft, nontender Ext: no edema ASSESSMENT AND PLAN: S/P C5-C6 Posterior Decompression/I&D/Hematoma Evacuation Anterior Cervical Spine Elevated LFTs likely antibiotic related - Advised patient to minimize stimulation. Advised quiet recuperation time. - pain control: remains on Dilaudid SILVER LAP MACHINE TENDER - Incentive spirometry - monitor drain output - empiric antibiotics per surgery while drains intact - PO as tolerated - DVT prophylaxis - Disposition per surgery Dr Florentino
--- NOTE | 2017-05-20 15:46 | PN ---
Progress Note, Physician Chief Complaint: patient seen at bedside on property loss insurance claim adjuster for post op pain control History of Present Illness: patient states he's satisfied with pain control currently - Current Medication List Current Medications: Active Medications Aspirin (Ecotrin -) 81 mg PO BID [facility] Last Admin: 05/20/17 10:21 Dose: 81 mg Diazepam (Valium -) 10 mg PO Q6H PRN PRN Reason: ANXIETY Last Admin: 05/20/17 10:21 Dose: 10 mg Docusate Sodium (Colace -) 100 mg PO TID [facility] Last Admin: 05/20/17 05:57 Dose: 100 mg Gabapentin (Neurontin -) 300 mg PO TID [facility] Last Admin: 05/20/17 05:57 Dose: 300 mg Hydromorphone HCl (Dilaudid Bowling Ball Weigher And Packer -) 6 mg DELI DEPARTMENT MANAGER DELI DEPARTMENT MANAGER [facility] PRN Reason: Protocol Last Admin: 05/20/17 03:46 Dose: 6 mg Cefazolin Sodium (Ancef -) 1 gm in 10 mls @ 120 mls/hr IVPUSH Q8H-IV [facility] Last Admin: 05/20/17 10:16 Dose: 120 mls/hr Ondansetron HCl (Zofran Injection) 4 mg IVPUSH Q6H PRN PRN Reason: NAUSEA AND/OR VOMITING Senna (Senna -) 2 tab PO HS [facility] Last Admin: 05/19/17 21:55 Dose: 2 tab - Objective Vital Signs: Vital Signs Temperature 98.3 F 05/20/17 11:00 Pulse Rate 92 H 05/20/17 15:22 Respiratory Rate 21 05/20/17 15:22 Blood Pressure 162/84 05/20/17 15:22 O2 Sat by Pulse Oximetry (%) 98 05/20/17 08:45 Constitutional: Yes: Well Nourished Cardiovascular: Yes: WNL Respiratory: Yes: WNL Gastrointestinal: Yes: WNL Labs: CBC, BMP 05/18/17 08:04 05/18/17 08:04 INR, PTT INR 1.11 (0.82-1.09) 05/10/17 06:30 Assessment/Plan Patient unsure whether he will return to the OR for revision soon. Advise to coordinate with surgical team to determine whether he will be returning to the OR soon. Otherwise advise to transition to oral analgesic regimen. Continue DELI DEPARTMENT MANAGER for now.
--- NOTE | 2017-05-20 18:11 | PN ---
Progress Note (short form) - Note Progress Note: ATTENTION ALL CARE PROVIDERS: NO ORDERS FOR HECTOR FRANZ ARE TO BE CHANGED WITHOUT DISCUSSING WITH ME, DR. JASVIR RUIZ. CALL MY CELL PHONE: TO DISCUSS ANY DESIRED CHANGES TO MEDICATIONS OR MANAGEMENT. THIS IS NO LONGER A TEACHING CASE. RESIDENTS ARE NOT TO PRACTICE NEURO/EXTREMITY /MUSCULOSKELETAL ASSESSMENTS ON HECTOR FRANZ. 46M s/p C5-C7 posterior decompression & instrumented fusion, and I&D anterior cervical spine wound POD #10. Pain well controlled. No acute events overnight. (+) Headaches. This is expected and due to a combination of CSF drainage and posterior cervical spine muscle dissection. This is WELL controlled with diazepam and Dilaudid GLAZIER ARTIST. (-) Headache at present. (+) LUE, B/L thigh, & B/L foot paraesthesias. (+) Left eye visual disturbance/blurred vision. (-) Current chest pain, shortness of breath, nausea, vomiting, or chills. (+) Intermittent sweats. (+) Voiding; (+) Flatus; (+) BM. All labs & vitals reviewed. AVSS. Lab holiday. PE: AAO x 3, NAD. Neck: Hard cervical collar intact & in place. Anterior Cervical Spine: Supple, soft. Dressing C/D/I. Drain intact & in place; output: 3cc/24 hrs. Posterior Cervical Spine: Supple, soft. Dressing C/D/I. Drain intact & in place ; output: 5cc/24 hrs. B/L UE & LE M: All muscles supplying B/L shoulders, elbows, wrists, hands, hips, knees, ankles, and feet intact. RUE S: C5-T1 2/2. LUE S: C5-T1 1/2. B/L LE S: L2-L5 2/2; S1 1/2 & LFCN distribution 1/2. 46M s/p C5-C7 posterior decompression & instrumented fusion, and I&D anterior cervical spine wound POD #10. -Patient improving; maintain current management plan; do not divert; please call with all questions/concerns. -Refrain from redundant B/L UE & LE motor strength assessments as they trigger B /L UE neuralgic symptoms. -Pain control; Strictly NO NSAID'S nor STEROIDS; Neurontin 300mg PO TID standing ; Dilaudid GLAZIER ARTIST & diazepam for neck pain, muscle spasm (posterior surgical dissection), and headaches. -Hold all products containing Acetaminophen due to transient rise in LFT's. -STRICT DRAIN MANAGEMENT: - LILIAN #1 - Anterior: LIGHT thumb press suction only. Record output as LILIAN #1. - LILIAN #2 - Posterior: FULL squeeze suction. Record output as LILIAN #2. -Ancef 1g IV q8h standing while all drains are in. -DVT PPx: - Mechanical: CARMITA's & SCD's - Chemical: Aspirin EC 81mg PO BID. -Incentive spirometry. -Maintain hard cervical collar. -PWB B/L UE & LE; no heavy lifting. -Hold PT/OT for now. -Soft regular diet with Ensure beverages qmeal. -Care per ICU team; do not downgrade from ICU. -Plan discussed w/Dr. Brandon (neurosurgery) who is in agreement. -Will follow. ATTENTION ALL CARE PROVIDERS: NO ORDERS FOR HECTOR FRANZ ARE TO BE CHANGED WITHOUT DISCUSSING WITH ME, DR. JASVIR RUIZ. CALL MY CELL PHONE: TO DISCUSS ANY DESIRED CHANGES TO MEDICATIONS OR MANAGEMENT. THIS IS NO LONGER A TEACHING CASE. RESIDENTS ARE NOT TO PRACTICE NEURO/EXTREMITY /MUSCULOSKELETAL ASSESSMENTS ON HECTOR FRANZ. Vitaly Crisostomo MD (Orthopaedic Surgery).
[2017-05-20] MEDS: SENNOSIDES 8.6MG TABLET (FP) PO SCH (21:23)
[2017-05-20] MEDS ORDERED: diazePAM 5 MG TABLET PO ONE (21:45)
[2017-05-21] MEDS: CEFAZOLIN 1 GM PUSH 1 GM/10 ML DISP.SYRIN IVPUSH SCH ×3 (01:03→17:21)
[2017-05-21] MEDS ORDERED: HYDROmorphone *PCA* 6MG/30ML DISP.SYRIN PCA ONE (03:48)
[2017-05-21] MEDS: HYDROmorphone *PCA* 6MG/30ML DISP.SYRIN PCA SCH ×2 (03:50→17:25)
[2017-05-21] MEDS: diazePAM 5 MG TABLET PO PRN ×3 (03:51→21:46)
[2017-05-21] MEDS: GABAPENTIN 300 MG CAPSULE (FP) PO SCH ×3 (05:28→21:46)
[2017-05-21] MEDS: DOCUSATE SODIUM 100 MG CAPSULE (FP) PO SCH ×3 (05:28→21:46)
--- NOTE | 2017-05-21 09:41 | PN ---
Progress Note (short form) - Note Progress Note: Patient c/o pain score of 7-8/10 on Dilaudid WATER SANDER and Neurontin.P106,BP133/68 and po2 97% on O2#l NC.Patient stable but still c/o lot of pain.Will disscuss with Dr Crisostomo for chronic pain management.Liver enzymes are going high so can not put him om Tylenol.Will continue the same regimen for now.
[2017-05-21] MEDS: ASPIRIN COATED 81 MG TABLET.EC PO SCH ×2 (10:41→21:46)
--- NOTE | 2017-05-21 12:51 | PN ---
Progress Note (short form) - Note Progress Note: Patient seen and examined in the ICU. No significant change in overall exam. Still with headaches, left arm, leg weakness/numbness/paresthesias. No CP or SOB. Anesthesia follow up noted. To discuss further pain management with surgeon. No Labs. OBJECTIVE: Intake & Output 05/18/17 05/19/17 05/20/17 05/21/17 23:59 23:59 23:59 23:59 Intake Total 500 600 730 660 Output Total 558 1705 1013 0 Balance -58 -1105 -283 660 Weight 178 lb 6.4 oz 176 lb 2 oz 182 lb 8 oz Last Vital Signs Temp Pulse Resp BP Pulse Ox 98.5 F 79 18 142/71 100 05/21/17 10:00 05/21/17 11:30 05/21/17 11:30 05/21/17 11:30 05/20/17 21:55 Active Medications Aspirin (Ecotrin -) 81 mg PO BID [facility] Last Admin: 05/21/17 10:41 Dose: 81 mg Diazepam (Valium -) 10 mg PO Q6H PRN PRN Reason: ANXIETY Last Admin: 05/21/17 11:51 Dose: 10 mg Docusate Sodium (Colace -) 100 mg PO TID [facility] Last Admin: 05/21/17 05:28 Dose: 100 mg Gabapentin (Neurontin -) 300 mg PO TID [facility] Last Admin: 05/21/17 05:28 Dose: 300 mg Hydromorphone HCl (Dilaudid Supervisor Asbestos Textile -) 6 mg DATABASE MARKETING MANAGER DATABASE MARKETING MANAGER [place] PRN Reason: Protocol Last Admin: 05/21/17 03:50 Dose: 6 mg Cefazolin Sodium (Ancef -) 1 gm in 10 mls @ 120 mls/hr IVPUSH Q8H-IV [facility] Last Admin: 05/21/17 10:41 Dose: 120 mls/hr Ondansetron HCl (Zofran Injection) 4 mg IVPUSH Q6H PRN PRN Reason: NAUSEA AND/OR VOMITING Senna (Senna -) 2 tab PO HS [facility] Last Admin: 05/20/17 21:23 Dose: 2 tab Gen: NAD at rest Heart: RRR Lung: decreased breath sounds at the bases Abd: soft, nontender Ext: no edema ASSESSMENT AND PLAN: S/P C5-C6 Posterior Decompression/I&D/Hematoma Evacuation Anterior Cervical Spine Elevated LFTs likely antibiotic related - Advised patient to minimize stimulation. Advised quiet recuperation time. - pain control: remains on Dilaudid DATABASE MARKETING MANAGER / Neurontin / BZ: Anesthesia to discuss with surgeon further management - Incentive spirometry - monitor drain output - empiric antibiotics per surgery while drains intact - PO as tolerated - DVT prophylaxis - Disposition per surgery Dr Florentino
[2017-05-21] MEDS: SENNOSIDES 8.6MG TABLET (FP) PO SCH (21:46)
--- NOTE | 2017-05-21 21:57 | PN ---
Progress Note (short form) - Note Progress Note: ATTENTION ALL CARE PROVIDERS: NO ORDERS FOR HECTOR FRANZ ARE TO BE CHANGED WITHOUT DISCUSSING WITH ME, DR. JASVIR RUIZ. CALL MY CELL PHONE: TO DISCUSS ANY DESIRED CHANGES TO MEDICATIONS OR MANAGEMENT. THIS IS NO LONGER A TEACHING CASE. RESIDENTS ARE NOT TO PRACTICE NEURO/EXTREMITY /MUSCULOSKELETAL ASSESSMENTS ON HECTOR FRANZ. 46M s/p C5-C7 posterior decompression & instrumented fusion, and I&D anterior cervical spine wound POD #11. Pt. demonstrates a swing in personality: He declares that the hospital is "unsafe" and that he would like me to transfer him to [facility] and take care of him there, instead. This morning, patient refused removal of cervical drains because he was not ready for their removal. He has expressed intent to sign out against medical advice to pursue inpatient care elsewhere. Pain well controlled. (+) Headaches. (+) Voiding; (+) Flatus; (+) BM. All labs & vitals reviewed. AVSS. Aleukocytosis. PE: Alert. Neck: Hard cervical collar intact & in place. Anterior Cervical Spine: Supple, soft. Dressing C/D/I. Drain intact & in place; output: 0cc/12 hrs. Posterior Cervical Spine: Supple, soft. Dressing C/D/I. Drain intact & in place ; output: 0cc/12 hrs. Unable to assess B/L UE & LE sensorimotor status d/t patient's fixation with being transferred. 46M s/p C5-C7 posterior decompression & instrumented fusion, and I&D anterior cervical spine wound POD #11. -Patient improving; maintain current management plan; do not divert; please call with all questions/concerns. -Long conversation was held with Mr. Franz regarding his overall progress. He understands that we have successfully controlled his CSF leak via diligent and deliberate drain management. He understands that our next objective is to wean him off opiate and narcotic medications. He understands that his neuralgic symptoms are expected to improve with time. -Refrain from redundant B/L UE & LE motor strength assessments as they trigger B /L UE neuralgic symptoms. -Pain control; Strictly NO NSAID'S nor STEROIDS; Neurontin 300mg PO TID standing ; Dilaudid HOUSING RELOCATION & diazepam for neck pain, muscle spasm (posterior surgical dissection), and headaches. -Obtain pain management consult in AM: plan to transition to oral analgesia in preparation for hospital discharge. -Hold all products containing Acetaminophen due to transient rise in LFT's. -STRICT DRAIN MANAGEMENT: - LILIAN #1 - Anterior: LIGHT thumb press suction only. Record output as LILIAN #1. - LILIAN #2 - Posterior: FULL squeeze suction. Record output as LILIAN #2. -Plan to remove both drains tomorrow morning. -Ancef 1g IV q8h standing while all drains are in. -DVT PPx: - Mechanical: CARMITA's & SCD's - Chemical: Aspirin EC 81mg PO BID. -Incentive spirometry. -Maintain hard cervical collar. -PWB B/L UE & LE; no heavy lifting. -Hold PT/OT for now. -Soft regular diet with Ensure beverages qmeal. -Care per ICU team; do not downgrade from ICU. -Plan to discharge home VS rehab. -Plan discussed w/Dr. Brandon (neurosurgery) who is in agreement. -Long conversation held with the patient's . She is concerned that he "does not sound like himself" and might be taking too much pain medication. She understands that conversion to oral analgesia is our next objective and that any situation resulting in an acute discontinuation of his HOUSING RELOCATION without a pain management transition plan in place can lead to potentially life threatening medication withdrawal. She plans to discuss the situation with the patient and encourage him to remain in house overnight. -Will follow. ATTENTION ALL CARE PROVIDERS: NO ORDERS FOR HECTOR FRANZ ARE TO BE CHANGED WITHOUT DISCUSSING WITH ME, DR. JASVIR RUIZ. CALL MY CELL PHONE: TO DISCUSS ANY DESIRED CHANGES TO MEDICATIONS OR MANAGEMENT. THIS IS NO LONGER A TEACHING CASE. RESIDENTS ARE NOT TO PRACTICE NEURO/EXTREMITY /MUSCULOSKELETAL ASSESSMENTS ON HECTOR FRANZ. Vitaly Crisostomo MD (Orthopaedic Surgery).
[2017-05-22] MEDS: CEFAZOLIN 1 GM PUSH 1 GM/10 ML DISP.SYRIN IVPUSH SCH ×3 (01:54→18:03)
[2017-05-22] MEDS: diazePAM 5 MG TABLET PO PRN ×2 (03:47→18:29)
[2017-05-22] MEDS: HYDROmorphone *PCA* 6MG/30ML DISP.SYRIN PCA SCH ×2 (03:48→14:33)
[2017-05-22] MEDS: GABAPENTIN 300 MG CAPSULE (FP) PO SCH ×5 (06:17→22:04)
[2017-05-22] MEDS: DOCUSATE SODIUM 100 MG CAPSULE (FP) PO SCH ×3 (06:17→22:04)
--- NOTE | 2017-05-22 11:31 | PN ---
Progress Note (short form) - Note Progress Note: Follow-up on post-op pain management. Pt. currently on CURTAIN STRETCHER + Continuous Dilaudid. VSS. Pt. sitting up comfortably in bed. Pain control adequate on current regimen. Consult with chronic pain management pending. Will continue current CURTAIN STRETCHER settings for now.
[2017-05-22] MEDS: ASPIRIN COATED 81 MG TABLET.EC PO SCH ×2 (11:50→22:14)
[2017-05-22] MEDS ORDERED: oxyCODONE HCL 5 MG TABLET PO PRN (14:08)
[2017-05-22] MEDS ORDERED: ACETAMINOPHEN 325 MG TABLET (FP) PO PRN (14:09)
[2017-05-22] MEDS: CYCLOBENZAPRINE HCL 10 MG TABLET (FP) PO SCH ×2 (14:21→22:03)
--- NOTE | 2017-05-22 15:19 | PN ---
Progress Note (short form) - Note Progress Note: ATTENTION ALL CARE PROVIDERS: NO ORDERS FOR HECTOR FRANZ ARE TO BE CHANGED WITHOUT DISCUSSING WITH ME, DR. JASVIR RUIZ. CALL MY CELL PHONE: TO DISCUSS ANY DESIRED CHANGES TO MEDICATIONS OR MANAGEMENT. THIS IS NO LONGER A TEACHING CASE. RESIDENTS ARE NOT TO PRACTICE NEURO/EXTREMITY /MUSCULOSKELETAL ASSESSMENTS ON HECTOR FRANZ. 46M s/p C5-C7 posterior decompression & instrumented fusion, and I&D anterior cervical spine wound POD #12. Pt. remorseful about demanding to be transferred yesterday. He apologized repeatedly for having been influenced by family and friends in wanting to deviate from the current treatment plan. No acute events overnight. Pain well controlled. (+) Headaches. (+) Night sweats. (+) Voiding; (+) Flatus; (+) BM. All labs & vitals reviewed. (+) Tachycardia. Aleukocytosis. PE: AAO x 3, NAD. Neck: Hard cervical collar intact & in place. Anterior Cervical Spine: Supple, soft. Dressing C/D/I. Drain intact & in place; output: 1cc/36 hrs. Posterior Cervical Spine: Supple, soft. Dressing C/D/I. Drain intact & in place ; output: 0cc/12 hrs. B/L UE & LE sensorimotor status at baseline. 46M s/p C5-C7 posterior decompression & instrumented fusion, and I&D anterior cervical spine wound POD #12. -Patient improving; maintain current management plan; do not divert; please call with all questions/concerns. -Pain control: Deferring transition to oral analgesia to Dr. Duran (pain management team). -Plan to remove both drains today. -Ancef 1g IV x 1 final dose after drains are removed. -DVT PPx: - Mechanical: CARMITA's & SCD's - Chemical: Aspirin EC 81mg PO BID. -Incentive spirometry. -Maintain hard cervical collar. -PWB B/L UE & LE; no heavy lifting. -PT/OT/OOB. -Soft regular diet with Ensure beverages qmeal. -Care per ICU team; do not downgrade from ICU. -Plan to discharge home VS rehab. -Plan discussed w/Dr. Brandon (neurosurgery) who is in agreement. -Will follow. ATTENTION ALL CARE PROVIDERS: NO ORDERS FOR HECTOR FRANZ ARE TO BE CHANGED WITHOUT DISCUSSING WITH ME, DR. JASVIR RUIZ. CALL MY CELL PHONE: TO DISCUSS ANY DESIRED CHANGES TO MEDICATIONS OR MANAGEMENT. THIS IS NO LONGER A TEACHING CASE. RESIDENTS ARE NOT TO PRACTICE NEURO/EXTREMITY /MUSCULOSKELETAL ASSESSMENTS ON HECTOR FRANZ. Vitaly Crisostomo MD (Orthopaedic Surgery).
--- NOTE | 2017-05-22 16:18 | PN ---
Progress Note (short form) - Note Progress Note: PULMONARY/CCM Pt seen and examined in the ICU. No shortness of breath or chest pain. No fevers or chills. Drains to be removed. Last Vital Signs Temp Pulse Resp BP Pulse Ox 97.6 F 102 H 20 139/76 100 05/22/17 13:56 05/22/17 15:00 05/22/17 15:00 05/22/17 15:00 05/22/17 12:47 Intake & Output 05/19/17 05/20/17 05/21/17 05/22/17 23:59 23:59 23:59 23:59 Intake Total 903 720 9319 360 Output Total 1705 1013 0 1401 Balance -1105 -283 1060 -1041 Weight 80.921 kg 79.889 kg 82.781 kg 81.873 kg Gen: NAD at rest Heat: RRR Lung: decreased breath sounds at the bases Abd: soft, nontender Ext: no edema CBC, BMP 05/18/17 08:04 05/18/17 08:04 Active Medications Acetaminophen (Tylenol -) 325 mg PO Q4H PRN PRN Reason: >5 Stop: 05/25/17 14:05 Aspirin (Ecotrin -) 81 mg PO BID [facility] Last Admin: 05/22/17 11:50 Dose: 81 mg Cyclobenzaprine HCl (Flexeril -) 10 mg PO BID [facility] Last Admin: 05/22/17 14:21 Dose: 10 mg Diazepam (Valium -) 10 mg PO Q6H PRN PRN Reason: ANXIETY Last Admin: 05/22/17 03:47 Dose: 10 mg Diazepam (Valium -) 5 mg PO Q6H PRN PRN Reason: ANXIETY Diphenhydramine HCl (Benadryl Injection -) 12.5 mg IVPUSH Q4H PRN PRN Reason: PRURITUS Docusate Sodium (Colace -) 100 mg PO TID [facility] Last Admin: 05/22/17 14:21 Dose: 100 mg Gabapentin (Neurontin -) 300 mg PO QID [facility] Last Admin: 05/22/17 14:22 Dose: 300 mg Hydromorphone HCl (Dilaudid Energy Conservation Director -) 6 mg SUPERINTENDENT OPERATING SUPERINTENDENT OPERATING [facility] PRN Reason: Protocol Last Admin: 05/22/17 14:33 Dose: 6 mg Cefazolin Sodium (Ancef -) 1 gm in 10 mls @ 120 mls/hr IVPUSH Q8H-IV GA Last Admin: 05/22/17 10:00 Dose: 120 mls/hr Ondansetron HCl (Zofran Injection) 4 mg IVPUSH Q6H PRN PRN Reason: NAUSEA AND/OR VOMITING Oxycodone HCl (Roxicodone -) 10 mg PO Q4H PRN PRN Reason: > 5 PAIN SCALE Senna (Senna -) 2 tab PO HS [facility] Last Admin: 05/21/17 21:46 Dose: 2 tab A/P s/p C5-C6 Posterior Decompression/I&D/Hematoma Evacuation Anterior Cervical Spine Elevated LFTs likely antibiotic related - pain control - incentive spirometry - drains per surgery - empiric antibiotics per surgery - monitor LFTs - PO as tolerated - DVT prophylaxis - dispo per surgery
--- NOTE | 2017-05-22 18:38 | PROC ---
Procedure Note Procedure: Dr Crisostomo has asked our surgical team to pull both the anterior and posterior J/ P drains. The patient expressed understanding and agrees to the bedside procedure. Anterior incision well healed, flat, with no edema or erythema. drain sutures cut and anterior drain removed with gently steady pressure, tip fully intact and @ 5cc of yellow tinged d/c. Posterior incision and drain site, c/d/i, ale over midline incision with dermabond and non evidence of d/c. Surrounding tissue-no edema or erythema. Posterior drain removed in normal fashion with gentle steady pressure, tip fully intact and @ 15cc of SS d/c. Both sites dressed with steris in X formation and covered with 2x2 and op sites in pressure dressing fashion. The patient tolerated the procedure well. evaluation and procedure discussed with Dr Crisostomo.
[2017-05-22] MEDS: oxyCODONE HCL 5 MG TABLET PO PRN (19:53)
[2017-05-22] MEDS: ACETAMINOPHEN 325 MG TABLET (FP) PO PRN (19:55)
[2017-05-22] MEDS: SENNOSIDES 8.6MG TABLET (FP) PO SCH (22:04)
[2017-05-23] MEDS: oxyCODONE HCL 5 MG TABLET PO PRN ×4 (00:13→21:52)
[2017-05-23] MEDS: HYDROmorphone *PCA* 6MG/30ML DISP.SYRIN PCA SCH ×3 (00:20→18:01)
[2017-05-23] MEDS: diazePAM 5 MG TABLET PO PRN ×4 (00:46→21:52)
[2017-05-23] MEDS: CEFAZOLIN 1 GM PUSH 1 GM/10 ML DISP.SYRIN IVPUSH SCH (01:04)
[2017-05-23] MEDS: DOCUSATE SODIUM 100 MG CAPSULE (FP) PO SCH ×3 (05:41→21:52)
[2017-05-23] MEDS: ACETAMINOPHEN 325 MG TABLET (FP) PO PRN ×2 (05:43→11:09)
--- NOTE | 2017-05-23 08:51 | PN ---
Progress Note (short form) - Note Progress Note: SEASONAL SALES ASSOCIATE follow up Still c/o pain. Getting benefit from Dilaudid SEASONAL SALES ASSOCIATE. VSS A/P Continue the SEASONAL SALES ASSOCIATE. Mami Aaron MD.
[2017-05-23] MEDS: CYCLOBENZAPRINE HCL 10 MG TABLET (FP) PO SCH ×2 (10:17→21:53)
[2017-05-23] MEDS: ASPIRIN COATED 81 MG TABLET.EC PO SCH ×2 (10:17→21:53)
[2017-05-23] MEDS: GABAPENTIN 300 MG CAPSULE (FP) PO SCH ×4 (10:17→21:53)
[2017-05-23] MEDS ORDERED: ONDANSETRON 4 MG/2 ML VIAL IVPUSH PRN (16:45)
[2017-05-23] MEDS: SENNOSIDES 8.6MG TABLET (FP) PO SCH (22:33)
[2017-05-24] MEDS: DOCUSATE SODIUM 100 MG CAPSULE (FP) PO SCH ×3 (05:58→22:07)
[2017-05-24] MEDS: diazePAM 5 MG TABLET PO PRN ×3 (06:03→18:27)
[2017-05-24] MEDS: GABAPENTIN 300 MG CAPSULE (FP) PO SCH ×4 (09:14→22:08)
[2017-05-24] MEDS: ASPIRIN COATED 81 MG TABLET.EC PO SCH ×2 (09:14→22:08)
[2017-05-24] MEDS: CYCLOBENZAPRINE HCL 10 MG TABLET (FP) PO SCH ×2 (09:14→22:08)
[2017-05-24] MEDS: oxyCODONE HCL 5 MG TABLET PO PRN ×4 (09:14→22:14)
[2017-05-24] MEDS: ACETAMINOPHEN 325 MG TABLET (FP) PO PRN ×3 (09:16→18:24)
--- NOTE | 2017-05-24 12:53 | PN ---
Progress Note (short form) - Note Progress Note: ATTENTION ALL CARE PROVIDERS: NO ORDERS FOR HECTOR FRANZ ARE TO BE CHANGED WITHOUT DISCUSSING WITH ME, DR. JASVIR RUIZ. CALL MY CELL PHONE: TO DISCUSS ANY DESIRED CHANGES TO MEDICATIONS OR MANAGEMENT. THIS IS NO LONGER A TEACHING CASE. RESIDENTS ARE NOT TO PRACTICE NEURO/EXTREMITY /MUSCULOSKELETAL ASSESSMENTS ON HECTOR FRANZ. 46M doing well s/p C5-C7 posterior decompression & instrumented fusion, and I&D anterior cervical spine wound POD #14. No acute events overnight. Pain well controlled. (+) Headaches. (+) Night sweats. (-) Chest pain, shortness of breath, nausea, vomiting, & chills. (+) Voiding; (+) Flatus; (+) BM. All labs & vitals reviewed. AVSS. Aleukocytosis. PE: AAO x 3, NAD. Neck: Hard cervical collar intact & in place. Anterior Cervical Spine: Supple, soft. Dressing C/D/I. Drain removed. Posterior Cervical Spine: Supple, soft. Dressing C/D/I. Drain removed. B/L UE & LE sensorimotor status at baseline. 46M s/p C5-C7 posterior decompression & instrumented fusion, and I&D anterior cervical spine wound POD #14. -Patient improving; maintain current management plan; do not divert; please call with all questions/concerns. -Pain control: Deferring transition to oral analgesia to Dr. Duran (pain management team). -DVT PPx: - Mechanical: CARMITA's & SCD's - Chemical: Aspirin EC 81mg PO BID x 6 weeks post-op. -Incentive spirometry. -Maintain hard cervical collar. -PWB B/L UE & LE; no heavy lifting. -PT/OT/OOB. -Soft regular diet with Ensure beverages qmeal. -Plan to discharge home VS rehab. -Plan discussed w/Dr. Brandon (neurosurgery) who is in agreement. -Will follow. ATTENTION ALL CARE PROVIDERS: NO ORDERS FOR HECTOR FRANZ ARE TO BE CHANGED WITHOUT DISCUSSING WITH ME, DR. JASVIR RUIZ. CALL MY CELL PHONE: TO DISCUSS ANY DESIRED CHANGES TO MEDICATIONS OR MANAGEMENT. THIS IS NO LONGER A TEACHING CASE. RESIDENTS ARE NOT TO PRACTICE NEURO/EXTREMITY /MUSCULOSKELETAL ASSESSMENTS ON HECTOR FRANZ. Vitaly Crisostomo MD (Orthopaedic Surgery).
--- NOTE | 2017-05-24 14:22 | PN ---
Progress Note (short form) - Note Progress Note: Patient stable and c/o pain score of3-4/10 on Dilaudid CENTER CONSULTANT,Neurontin and oxycodone.Will continue CENTER CONSULTANT today and will f/u.
--- NOTE | 2017-05-24 14:35 | CON.PSY ---
Psychiatry Consult Chief Complaint: Staff re[ports patient has been drug seeking and reports being very anxious .[id number] is on Valium, pain meds etc. Symptoms: reports: Sleep Disturbance, Conduct Problems - Previous Psychiatric Treatment Outpatient: None Inpatient: None - Previous Substance Abuse Treatment Outpatient: None Inpatient: None - Current Medications Current Medications: Active Medications Acetaminophen (Tylenol -) 325 mg PO Q4H PRN PRN Reason: PAIN LEVEL >5 Last Admin: 05/24/17 13:31 Dose: 325 mg Aspirin (Ecotrin -) 81 mg PO BID [facility] Last Admin: 05/24/17 09:14 Dose: 81 mg Cyclobenzaprine HCl (Flexeril -) 10 mg PO BID [facility] Last Admin: 05/24/17 09:14 Dose: 10 mg Diazepam (Valium -) 5 mg PO Q6H PRN PRN Reason: ANXIETY Last Admin: 05/24/17 12:10 Dose: 5 mg Diphenhydramine HCl (Benadryl Injection -) 12.5 mg IVPUSH Q4H PRN PRN Reason: PRURITUS Docusate Sodium (Colace -) 100 mg PO TID [facility] Last Admin: 05/24/17 13:30 Dose: 100 mg Gabapentin (Neurontin -) 300 mg PO QID [facility] Last Admin: 05/24/17 13:30 Dose: 300 mg Hydromorphone HCl (Dilaudid Materials And Corrosion Engineer -) 6 mg SUPERVISORY GEOGRAPHER SUPERVISORY GEOGRAPHER [facility] PRN Reason: Protocol Last Admin: 05/23/17 18:01 Dose: 6 mg Ondansetron HCl (Zofran Injection) 4 mg IVPUSH Q6H PRN PRN Reason: NAUSEA AND/OR VOMITING Oxycodone HCl (Roxicodone -) 10 mg PO Q4H PRN PRN Reason: PAIN LEVEL 6-10 Last Admin: 05/24/17 13:30 Dose: 10 mg Senna (Senna -) 2 tab PO HS [facility] Last Admin: 05/23/17 22:33 Dose: 2 tab - Allergies Allergies: Allergies Allergy/AdvReac Type Severity Reaction Status Date / Time No Known Drug Allergies Allergy Verified 05/09/17 15:59 strawberry Allergy Verified 05/16/17 12:33 - Current Living Status Usual Living Arrangement: With Significant Other - Current Mental Status Evaluation Appearance: Well Groomed Attitude: Cooperative - Affect Affect: Full Range Appropriateness: Appropriate to Content - Mood Mood: Irritable - Speech/Language Expressive: Coherent - Psychomotor Activity Psychomotor Activity: Hyperactive - Thought Process Thought Process: Intact - Thought Content Hallucinations: Absent Delusions: Absent - Self Perception Self Perception: No Impairment - Cognition Attention: Alert Orientation: Time Memory, Immediate Recall: Intact Memory, Short Term: 3/3 Memory, Remote with Promptin/3 - Concentration Serial Sevens Intact: No Simple Calculations Intact: No - Abstraction Proverb Interpretation: Intact Judgement: Minimally Impaired - Insight Insight: Intact - Impulse Control Impulse Control: Minimally Impaired - Suicidal Ideation Suicidal Ideation: No - Homicidal Ideation Homicidal Ideation: No Assessment/Plan will try Trazadone 50mg po hs for sleep.
[2017-05-24] MEDS: HYDROmorphone *PCA* 6MG/30ML DISP.SYRIN PCA SCH (19:44)
[2017-05-24] MEDS: SENNOSIDES 8.6MG TABLET (FP) PO SCH (22:08)
[2017-05-24] MEDS: traZODone HCL 50 MG TABLET (FP) PO SCH (22:08)
[2017-05-25] MEDS: diazePAM 5 MG TABLET PO PRN ×4 (00:40→17:58)
[2017-05-25] MEDS: oxyCODONE HCL 5 MG TABLET PO PRN ×5 (02:46→21:52)
[2017-05-25] MEDS: DOCUSATE SODIUM 100 MG CAPSULE (FP) PO SCH ×3 (07:01→21:49)
[2017-05-25] MEDS ORDERED: PT OWN MED DRAWER 7, Y5N ONE (10:51)
[2017-05-25] MEDS: ASPIRIN COATED 81 MG TABLET.EC PO SCH (10:54)
[2017-05-25] MEDS: CYCLOBENZAPRINE HCL 10 MG TABLET (FP) PO SCH ×2 (10:54→21:49)
[2017-05-25] MEDS: GABAPENTIN 300 MG CAPSULE (FP) PO SCH ×4 (10:55→21:51)
--- NOTE | 2017-05-25 12:41 | PN ---
Progress Note (short form) - Note Progress Note: Anesthesia RESPIRATORY DIRECTOR follow up Pat with multiple C-spine surgeries. Patient seen and examined. On RESPIRATORY DIRECTOR hydromorphone. Not well controlled pain. Pat c/o pain in his left arm score 30/10. "The medication will relieve it some. " Feels tingling and numbness in left arm and hand in addition to weakness. Got worse last night when the NA tried to measure his BP. Pat resting his left arm elevated on pillow. Aggravated A/P:Pat with worsening pain, tingling and numbness in left arm and hand, ON RESPIRATORY DIRECTOR , gabapentin, Oxycodon, in addition to valium. VSS. Will continue with RESPIRATORY DIRECTOR. Suggesting follow by chronic pain management Dr. butler. Will follow up tomorrow.
[2017-05-25] MEDS: HYDROmorphone *PCA* 6MG/30ML DISP.SYRIN PCA SCH ×2 (14:07→19:08)
--- NOTE | 2017-05-25 15:58 | PN ---
Progress Note (short form) - Note Progress Note: ATTENTION ALL CARE PROVIDERS: NO ORDERS FOR HECTOR FRANZ ARE TO BE CHANGED WITHOUT DISCUSSING WITH ME, DR. JASVIR RUIZ. CALL MY CELL PHONE: TO DISCUSS ANY DESIRED CHANGES TO MEDICATIONS OR MANAGEMENT. THIS IS NO LONGER A TEACHING CASE. RESIDENTS ARE NOT TO PRACTICE NEURO/EXTREMITY /MUSCULOSKELETAL ASSESSMENTS ON HECTOR FRANZ. 46M doing well s/p C5-C7 posterior decompression & instrumented fusion, and I&D anterior cervical spine wound POD #15. Pt. seen and examined by Vijay Crisostomo MD. Pain well controlled. (+) LUE & LLE neuralgic pain; no truncal nor abdominal pain. Pt. walking in room and hallway without assistive ambulatory device. (-) Headaches. (-) Chest pain, shortness of breath, nausea, vomiting, chills, and sweats. (+) Voiding; (+) Flatus; (+) Stool. Voice - normal. Swallowing mechanism - normal. All labs & vitals reviewed. AVSS. Aleukocytosis. PE: AAO x 3, NAD. Abdomen soft. Neck: Hard cervical collar intact & in place; removed for assessment. No soft tissue swelling. Anterior Cervical Spine: Wound dry. Posterior Cervical Spine: Wound dry. B/L UE & LE sensorimotor status at baseline per pre-op status. 46M doing well, making stead progress s/p C5-C7 posterior decompression & instrumented fusion, and I&D anterior cervical spine wound POD #15. -Patient improving; maintain current management plan; do not divert; please call with all questions/concerns. -Pain control: Deferring transition to oral analgesia to Dr. Duran (pain management team). -DVT PPx: - Mechanical: CARMITA's & SCD's - Chemical: d/c Aspirin; patient ambulating. -Incentive spirometry. -Maintain hard cervical collar. -Full WBAT B/L UE & LE; no heavy lifting. -PT/OT/OOB. -Resume regular diet. -Discharge planning: home Saturday. -Will follow. ATTENTION ALL CARE PROVIDERS: NO ORDERS FOR HECTOR FRANZ ARE TO BE CHANGED WITHOUT DISCUSSING WITH ME, DR. JASVIR RUIZ. CALL MY CELL PHONE: TO DISCUSS ANY DESIRED CHANGES TO MEDICATIONS OR MANAGEMENT. THIS IS NO LONGER A TEACHING CASE. RESIDENTS ARE NOT TO PRACTICE NEURO/EXTREMITY /MUSCULOSKELETAL ASSESSMENTS ON HECTOR FRANZ. Vitaly Crisostomo MD (Orthopaedic Surgery).
--- NOTE | 2017-05-25 17:00 | CONSULT ---
Consult Consult Specialty:: Pain Mnagement Reason for Consultation:: Neck Pain - History of Present Illness Chief Complaint: Neck Pain History of Present Illness: 46 yr old Male had Neck pain s/p C5-C7 posterior decompression & instrumented fusion, and I&D anterior cervical spine wound. C/O Pain 15/10 is on ICE SKATER Dilaudid . Pain Medication is being weaned. - History Source History Provided By: Patient Limitations to Obtaining History: No Limitations - Past Surgical History Past Surgical History: Yes: Laminectomy - Alcohol/Substance Use Hx Alcohol Use: No - Smoking History Smoking history: Former smoker Have you smoked in the past 12 months: No If you are a former smoker, when did you quit?: 10yrs - Social History Usual Living Arrangement: With Significant Other Home Medications - Allergies Allergies/Adverse Reactions: Allergies Allergy/AdvReac Type Severity Reaction Status Date / Time No Known Drug Allergies Allergy Verified 05/09/17 15:59 strawberry Allergy Verified 05/16/17 12:33 - Home Medications Home Medications: Ambulatory Orders Oxycodone HCl 30 mg PO Q8H 05/01/17 Review of Systems - Review of Systems Constitutional: reports: No Symptoms Eyes: reports: No Symptoms HENT: reports: No Symptoms Neck: reports: Decreased ROM, Pain on Movement Respiratory: reports: No Symptoms Gastrointestinal: reports: No Symptoms Genitourinary: reports: No Symptoms Neurological: reports: No Symptoms Pain Intensity: 10 Physical Exam Vital Signs: Vital Signs Temperature 97.9 F 05/25/17 14:20 Pulse Rate 96 H 05/25/17 14:20 Respiratory Rate 20 05/25/17 14:20 Blood Pressure 126/79 05/25/17 14:20 O2 Sat by Pulse Oximetry (%) 100 05/23/17 21:00 Constitutional: Yes: Well Nourished Eyes: Yes: WNL HENT: Yes: WNL Neck: Yes: Decreased ROM, Other (cervical collar +) Respiratory: Yes: WNL Gastrointestinal: Yes: WNL Musculoskeletal: Yes: Other (Neck pain ,) Extremities: Yes: WNL Edema: No Neurological: Yes: Alert, Oriented Labs: CBC, BMP 05/18/17 08:04 05/18/17 08:04 Problem List - Problems (1) Neck pain Code(s): M54.2 - CERVICALGIA Assessment/Plan Discussed in detail and answered all the questions Also Discussed with Dr. Crisostomo ( spine Surgeon) 1. D/C ICE SKATER to jay AM and wean the dosage now. 2. D/C Valium 5 mg X4 but Valium 10 mg PO BID 3. Comtinue Percocet MS contin 15 mg PO BID PRN Physical therapy F/U as needed Thanks for your kind referral. Dr. Duran [phone]
[2017-05-25] MEDS ORDERED: HYDROmorphone *PCA* 6MG/30ML DISP.SYRIN PCA SCH (17:03)
[2017-05-25] MEDS: traZODone HCL 50 MG TABLET (FP) PO SCH (21:49)
[2017-05-25] MEDS: morphine SO4 SUSTAINED ACTING 15 MG TABLET.SA PO SCH (21:50)
[2017-05-25] MEDS: SENNOSIDES 8.6MG TABLET (FP) PO SCH (21:51)
[2017-05-26] MEDS: diazePAM 5 MG TABLET PO PRN ×2 (06:37→18:08)
[2017-05-26] MEDS: DOCUSATE SODIUM 100 MG CAPSULE (FP) PO SCH ×3 (06:37→21:18)
[2017-05-26] MEDS: oxyCODONE HCL 5 MG TABLET PO PRN ×4 (06:38→21:18)
[2017-05-26] MEDS: CYCLOBENZAPRINE HCL 10 MG TABLET (FP) PO SCH ×2 (10:17→21:18)
[2017-05-26] MEDS: morphine SO4 SUSTAINED ACTING 15 MG TABLET.SA PO SCH ×2 (10:17→21:20)
[2017-05-26] MEDS: GABAPENTIN 300 MG CAPSULE (FP) PO SCH ×4 (10:18→21:18)
--- NOTE | 2017-05-26 11:01 | PN ---
Progress Note (short form) - Note Progress Note: Patient stable and c/o pain score 3-4/10.So GOSPEL WORKER is DC today and patient put on PO pain medication.No any anesthesia related problem.Patient DC from the anesthesia care.
--- NOTE | 2017-05-26 20:49 | PN ---
Progress Note (short form) - Note Progress Note: ATTENTION ALL CARE PROVIDERS: NO ORDERS FOR HECTOR FRANZ ARE TO BE CHANGED WITHOUT DISCUSSING WITH ME, DR. JASVIR RUIZ. CALL MY CELL PHONE: TO DISCUSS ANY DESIRED CHANGES TO MEDICATIONS OR MANAGEMENT. THIS IS NO LONGER A TEACHING CASE. RESIDENTS ARE NOT TO PRACTICE NEURO/EXTREMITY /MUSCULOSKELETAL ASSESSMENTS ON HECTOR FRANZ. 46M doing well s/p C5-C7 posterior decompression & instrumented fusion, and I&D anterior cervical spine wound POD #16. Pt. seen and examined again today by Vijay Crisostomo MD. Pt. continues to improve daily. Pain well controlled. (+) LUE & LLE neuralgic pain; no truncal nor abdominal pain. Pt. walking in room and hallway without assistive ambulatory device. (-) Headaches. (-) Chest pain, shortness of breath, nausea, vomiting, chills, and sweats. (+) Voiding; (+) Flatus; (+) Stool. Voice - normal. Swallowing mechanism - normal. All labs & vitals reviewed. AVSS. PE: AAO x 3, NAD. Abdomen soft. Neck: Hard cervical collar intact & in place; removed for assessment. No soft tissue swelling. Anterior Cervical Spine: Wound dry, flat. Posterior Cervical Spine: Wound dry, flat. B/L UE & LE sensorimotor status at baseline per pre-op status. 46M doing well, making stead progress s/p C5-C7 posterior decompression & instrumented fusion, and I&D anterior cervical spine wound POD #16. -Patient improving; maintain current management plan; do not divert; please call with all questions/concerns. -Pain control: Deferring transition to oral analgesia to Dr. Duran (pain management team). -DVT PPx: - Mechanical: CARMITA's & SCD's - Chemical: d/c Aspirin; patient ambulating. -Incentive spirometry. -Maintain hard cervical collar. -Full WBAT B/L UE & LE; no heavy lifting. -PT/OT/OOB. -Resume regular diet. -Discharge planning: home Saturday. -Will follow. ATTENTION ALL CARE PROVIDERS: NO ORDERS FOR HECTOR FRANZ ARE TO BE CHANGED WITHOUT DISCUSSING WITH ME, DR. JASVIR RUIZ. CALL MY CELL PHONE: TO DISCUSS ANY DESIRED CHANGES TO MEDICATIONS OR MANAGEMENT. THIS IS NO LONGER A TEACHING CASE. RESIDENTS ARE NOT TO PRACTICE NEURO/EXTREMITY /MUSCULOSKELETAL ASSESSMENTS ON HECTOR FRANZ. Vitaly Crisostomo MD (Orthopaedic Surgery).
[2017-05-26] MEDS: SENNOSIDES 8.6MG TABLET (FP) PO SCH (21:17)
[2017-05-26] MEDS: traZODone HCL 50 MG TABLET (FP) PO SCH (21:18)
[2017-05-27] MEDS: DOCUSATE SODIUM 100 MG CAPSULE (FP) PO SCH (05:39)
[2017-05-27 06:20] VITALS: BP 120/68
[2017-05-27] MEDS: oxyCODONE HCL 5 MG TABLET PO PRN ×2 (06:47→14:54)
[2017-05-27] MEDS: diazePAM 5 MG TABLET PO PRN (06:51)
[2017-05-27] MEDS: GABAPENTIN 300 MG CAPSULE (FP) PO SCH ×2 (09:37→14:55)
[2017-05-27] MEDS: CYCLOBENZAPRINE HCL 10 MG TABLET (FP) PO SCH (09:38)
[2017-05-27] MEDS: morphine SO4 SUSTAINED ACTING 15 MG TABLET.SA PO SCH (09:38)
[2017-05-27 11:47] VITALS: PULSE 114; TEMP 98.1
--- NOTE | 2017-05-27 14:21 | PN ---
Progress Note (short form) - Note Progress Note: ATTENTION ALL CARE PROVIDERS: NO ORDERS FOR HECTOR FRANZ ARE TO BE CHANGED WITHOUT DISCUSSING WITH ME, DR. ANDRESSA RUIZ. CALL MY CELL PHONE: TO DISCUSS ANY DESIRED CHANGES TO MEDICATIONS OR MANAGEMENT. THIS IS NO LONGER A TEACHING CASE. RESIDENTS ARE NOT TO PRACTICE NEURO/EXTREMITY /MUSCULOSKELETAL ASSESSMENTS ON HECTOR FRANZ. 46M doing well s/p C5-C7 posterior decompression & instrumented fusion, and I&D anterior cervical spine wound POD #17. Pt. seen and examined again today by myself and Vijay Crisostomo MD. Pt. continues to improve daily. Pain well controlled. (+) LUE & LLE neuralgic pain; no truncal nor abdominal pain. Pt. walking in room and hallway without assistive ambulatory device. (+) L eye blurry vision. (-) Chest pain, shortness of breath, nausea, vomiting, chills, and sweats. (+) Voiding; (+) Flatus; (+) Stool. Voice - normal. Swallowing mechanism - normal. All labs & vitals reviewed. AVSS. PE: AAO x 3, NAD. Abdomen soft. Neck: Hard cervical collar intact & in place; removed for assessment. No soft tissue swelling. Anterior Cervical Spine: Wound dry, flat. Posterior Cervical Spine: Wound dry, flat. B/L UE & LE sensorimotor status at baseline per pre-op status. 46M doing well, making stead progress s/p C5-C7 posterior decompression & instrumented fusion, and I&D anterior cervical spine wound POD #17. -Patient improving; maintain current management plan; do not divert; please call with all questions/concerns. -Pain control: Deferring transition to oral analgesia to Dr. Duran (pain management team). -DVT PPx: - Mechanical: CARMITA's & SCD's - Chemical: none. -Incentive spirometry. -Maintain hard cervical collar. -Full WBAT B/L UE & LE; no heavy lifting. -PT/OT/OOB. -Resume regular diet. -Discharge planning: home today. -f/u [facility] [place] office 06/06/2017: . -Will follow. ATTENTION ALL CARE PROVIDERS: NO ORDERS FOR HECTOR FRANZ ARE TO BE CHANGED WITHOUT DISCUSSING WITH ME, DR. ANDRESSA RUIZ. CALL MY CELL PHONE: TO DISCUSS ANY DESIRED CHANGES TO MEDICATIONS OR MANAGEMENT. THIS IS NO LONGER A TEACHING CASE. RESIDENTS ARE NOT TO PRACTICE NEURO/EXTREMITY /MUSCULOSKELETAL ASSESSMENTS ON HECTOR FRANZ. Vitaly Crisostomo MD (Orthopaedic Surgery).
== END 2017-05-27 16:10 | disposition home or self-care (01) | DRG 454 ==
LOC: JER 15:56 → JERBED 20:54 → JICU 05-10 19:30 → J7W 05-12 09:58 → JICU 05-13 13:06 → J8W 05-23 15:32
PROVIDERS: ADMIT Orthopaedic Surgery Orthopaedic Surgery of the Spine; ATTEND Orthopaedic Surgery Orthopaedic Surgery of the Spine
PROC: 0PB30ZZ Excision of Cervical Vertebra, Open Approach (ICD-10-PCS; principal; 2017-05-09)
PROC: 0RG2071 Fusion of 2 or more Cervical Vertebral Joints with Autologous Tissue Substitute, Posterior Approach, Posterior Column, Open Approach (ICD-10-PCS; 2017-05-09)
PROC: 0RG20AJ Fusion of 2 or more Cervical Vertebral Joints with Interbody Fusion Device, Posterior Approach, Anterior Column, Open Approach (ICD-10-PCS; 2017-05-09)
PROC: 00QT0ZZ Repair Spinal Meninges, Open Approach (ICD-10-PCS; 2017-05-09)
PROC: 009U3ZZ Drainage of Spinal Canal, Percutaneous Approach (ICD-10-PCS; 2017-05-16)
PROC: B01BYZZ Fluoroscopy of Spinal Cord using Other Contrast (ICD-10-PCS; 2017-05-16)
DX: M47.12 Other spondylosis with myelopathy, cervical region (principal); G96.0 Cerebrospinal fluid leak; G97.82 Other postprocedural complications and disorders of nervous system; Z87.891 Personal history of nicotine dependence; R00.0 Tachycardia, unspecified; K59.00 Constipation, unspecified; Y83.9 Surgical procedure, unspecified as the cause of abnormal reaction of the patient, or of later complication, without mention of misadventure at the time of the procedure; R74.0 Nonspecific elevation of levels of transaminase and lactic acid dehydrogenase [LDH]
CPT/HCPCS: 36415; 70450-TC; 71046-TC-FY; 72141-TC; 76000-TC-FY; 80048; 80053; 83605; 83735; 84100; 85025; 85027; 85610; 85651; 85730; 86140; 86850; 86900; 86901; 87040; 93005; 93010; 94010; 94760; 97116-GP; 97162-GP; 99285-25; J1170